=== PATIENT | male | born 1950 | race Caucasian/White ===

== ENCOUNTER 2018-07-14 11:23 | Emergency (ER) | payer OTHER, MEDICARE ==
--- OUTSIDE RECORDS SUMMARY | 2018-07-14 11:26 | XMS REPORT | Continuity of Care Document ---
:1950 Author Organization Interface Problems Problem Status Onset Classification Date Comments Source Date Reported M25.559 - PAIN Active [facility] IN UNSPECIFIED 8 [place] [facility] Medications Medication Details Route Status Patient Ordering Order Source Instructions Provider Date Allergies, Adverse Reactions, Alerts Substance Category Reaction Severity Reaction Status Date Comments Source type Reported Immunizations Immunization Date Given Site Status Last Updated Comments Source Results Order Results Value Reference Date Interpretation Comments Source Name Range Hip wo Hip wo Exam: Right Hip wo contrast MRI 01/27 - [facility] contrast contrast /2017 - [place] [facility] Clinical Indication: M25.559 Pain in unspecified hip. Right hip pain. Comparison: None Read by: Jason Espinoza MD Dictated Date/time: 01/27/18 10:28 Electronically Signed by: Jason Espinoza MD 01/27/18 10:32 FINAL REPORT TECHNIQUE: Multiplanar, multisequence MR noncontrast imaging of the right hip. FINDINGS: Labrum: While the examination is limited without intra-articular contrast, no labral abnormality is identified. Ligaments: The visualized ligamentum teres and the capsular ligaments are intact. Muscles/Tendons: There is tendinosis of the right proximal common hamstring tendon without significant tear. Visualized musculature appears within normal limits. No significant muscle atrophy or edema. Cartilage: No focal defects. Bone: No fracture is identified. Visualized bone marrow signal is within normal limits. Soft tissue: The soft tissues are unremarkable. No joint effusion or fluid collection. No abnormality of the neurovascular structures. IMPRESSION: 1. Right common hamstring tendinosis. 2. Remainder of MRI of the right hip is unremarkable. SL: BELEN Vital Signs Vital Sign Value Date Comments Source Encounters Location Location Encounter Encounter Reason Attending ADM DC Status Source Details Type Number For Provider Date Date Visit Procedures Procedure Code Date Perfomer Comments Source
[2018-07-14] MEDS ORDERED: MORPHINE 4 MG/ML SYR ONE (12:25)
[2018-07-14] MEDS ORDERED: ONDANSETRON 4 MG (ODT) TAB ONE (12:34)
--- NOTE | 2018-07-14 14:58 | RAD REPORT ---
EXAM DESCRIPTION: RAD - Lumbar Spine 3 Views - 07/14/2018 2:53 pm CLINICAL HISTORY: Back pain FINDINGS: No fracture or dislocation is seen. Moderate to marked spondylosis diffusely involves the lumbar spine consisting of osteophytes, disc sp meli narrowing and subchondral sclerosis
--- NOTE | 2018-07-14 15:24 | EDPHYS ---
Physician Documentation [facility] Name: Juan Nam Age: 68 yrs Sex: Male : 1950 Arrival Date: 07/14/2018 Time: 11:25 Bed 14 Private MD: Heidy Harmon H ED Physician Carlos Conway HPI: 07/14 11:53 This 68 yrs old Male presents to ER via Ambulatory with complaints of Back jmm Pain. 11:53 The patient presents with pain that is acute. Onset: The symptoms/episode jmm began/occurred gradually, 2 day(s) ago. The pain does not radiate. Associated signs and symptoms: Pertinent negatives: dysuria, fever, hematuria, incontinence, numbness. This is a 68 year old male with a history of htn, RA, that presents to the ED with complaints of lower back pain beginning approx 2 days ago. Patient denies injury. Denies radiation o pain, denies numbness, denies fever, denies urinary retention or fecal incontinence, denies IV drug use, denies recent surgery. . Historical: - Allergies: 11:33 No Known Allergies; aj - Home Meds: 11:33 Procardia XL 90 mg oral tr24 1 tab once daily [Active]; Cozaar 50 mg Oral tab 1 tab aj once daily [Active]; Maxzide 75-50 mg Oral tab 1 tab once daily [Active]; Nexium 40 mg Oral cpDR 1 cap once daily [Active]; Prednisone 7.5 mg Oral once daily [Active]; Actemra intravenous intravenous every 4 wks [Active]; testosterone cypionate 100 mg/mL intramuscular oil every 2 wks [Active]; oxycodone-acetaminophen 10-325 mg oral tab 2 tab [Active]; - PMHx: 11:33 Hypertension; Rheumatoid Arthritis; Chronic pain; aj - PSHx: 11:33 None; aj - Immunization history:: Adult Immunizations up to date. - Social history:: Smoking status: Patient/guardian denies using tobacco. - Ebola Screening: : Patient negative for fever greater than or equal to 101.5 degrees Fahrenheit, and additional compatible Ebola Virus Disease symptoms Patient denies exposure to infectious person Patient denies travel to an Ebola-affected area in the 21 days before illness onset No symptoms or risks identified at this time. ROS: 11:53 Constitutional: Negative for fever, chills, and weight loss, Cardiovascular: Negative [facility] for chest pain, palpitations, and edema, Respiratory: Negative for shortness of breath, cough, wheezing, and pleuritic chest pain. 11:53 Back: Positive for pain with movement. 11:53 All other systems are negative. Exam: 11:53 Constitutional: This is a well developed, well nourished patient who is awake, alert, jmm and in no acute distress. Head/Face: atraumatic. Eyes: EOMI, no conjunctival erythema appreciated ENT: Moist Mucus Membranes Neck: Trachea midline, Supple Chest/axilla: Normal chest wall appearance and motion. Cardiovascular: Regular rate and rhythm. No edema appreciated Respiratory: Normal respirations, no respiratory distress appreciated Abdomen/GI: Non distended, soft 11:53 Back: painful ROM, paraspinal lumbar muscle spasms noted, no erythema or induration is appreciated. 11:53 Neuro: Orientation: is normal, Mentation: is normal, Memory: is normal. 11:53 Psych: Behavior/mood is pleasant, cooperative. Vital Signs: 11:33 BP 141 / 79; Pulse 85; Resp 17; Temp 98.4; Pulse Ox 96% on R/A; Weight 117.93 kg; aj Height 6 ft. 1 in. (185.42 cm); 12:30 BP 140 / 80; Pulse 71; Resp 18; Pulse Ox 95% on R/A; rb1 13:30 BP 141 / 78; Pulse 79; Resp 17; Pulse Ox 95% on R/A; rb1 13:30 Pain 0/10; rb1 14:30 BP 148 / 86; Pulse 61; Resp 19; Pulse Ox 95% on R/A; rb1 15:30 BP 126 / 62; Pulse 77; Resp 20; Pulse Ox 95% on R/A; rb1 11:33 Body Mass Index 34.30 (117.93 kg, 185.42 cm) aj MDM: 11:53 Patient medically screened. [facility] 15:20 Data reviewed: vital signs, nurses notes. Counseling: I had a detailed discussion with gali the patient and/or guardian regarding: the historical points, exam findings, and any diagnostic results supporting the discharge/admit diagnosis, lab results, radiology results, the need for outpatient follow up, to return to the emergency department if symptoms worsen or persist or if there are any questions or concerns that arise at home. Response to treatment: the patient's symptoms have markedly improved after treatment, and as a result, I will discharge patient. ED course: Patient is alert and non toxic in appearance in the ED. Plain films negative. I discussed the need to follow up with pain management/PCP. I do not suspect cauda equina. Patient given return precautions. . 07/14 12:15 Order name: Lumbar Spine (3 Views) XRAY; Complete Time: 15:02 gali Administered Medications: 12:16 Drug: morphine 4 mg Route: IM; Site: right gluteus; rb1 12:45 Follow up: Response: No adverse reaction; Pain is decreased rb1 12:20 Not Given (Ordered IM): morphine 4 mg IVP once rb1 12:26 Drug: Zofran 4 mg Route: PO; rb1 13:00 Follow up: Response: No adverse reaction rb1 Disposition: 17:20 Co-signature as Attending Physician, Carlos Conway MD. rn Disposition: 07/14/18 15:22 Discharged to Home. Impression: Low back pain. - Condition is Stable. - Discharge Instructions: Back Pain, Adult. - Prescriptions for orphenadrine citrate 100 mg Oral Tablet Sustained Release - take 1 tablet by ORAL route 2 times per day As needed; 20 tablet. - Medication Reconciliation Form, Thank You Letter, Antibiotic Education, Prescription Opioid Use form. - Follow up: Heidy Harmon DO; When: 2 - 3 days; Reason: Recheck today's complaints, Continuance of care, Re-evaluation by your physician. Signatures: Dispatcher [employer] Grace Salas RN RN aj Mickail, Joel, PA PA jmm Nieto, Roman, MD MD rn Barber, Rebecca, RN RN rb1 Corrections: (The following items were deleted from the chart) 15:58 15:22 07/14/2018 15:22 Discharged to Home. Impression: Low back pain. Condition is rb1 Stable. Forms are Medication Reconciliation Form, Thank You Letter, Antibiotic Education, Prescription Opioid Use. Follow up: Heidy Harmon; When: 2 - 3 days; Reason: Recheck today's complaints, Continuance of care, Re-evaluation by your physician. gali
--- NOTE | 2018-07-14 15:24 | ER ---
Nurse's Notes [facility] Name: Juan Nam Age: 68 yrs Sex: Male : 1950 Arrival Date: 07/14/2018 Time: 11:25 Bed 14 Private MD: Heidy Harmon H Diagnosis: Low back pain Presentation: 07/14 11:29 Presenting complaint: Patient states: Low back pain that radiates to both hips since Friday. Transition of care: patient was not received from another setting of care. Onset of symptoms was July 12, 2018. Risk Assessment: Do you want to hurt yourself or someone else? Patient reports no desire to harm self or others. Initial Sepsis Screen: Does the patient meet any 2 criteria? No. Patient's initial sepsis screen is negative. Does the patient have a suspected source of infection? No. Patient's initial sepsis screen is negative. Care prior to arrival: None. 11:29 Method Of Arrival: Ambulatory 11:29 Acuity: CESAR 3 aj Triage Assessment: 11:33 General: Appears in no apparent distress. comfortable, Behavior is calm, cooperative, aj appropriate for age. Pain: Complains of pain in low back area and buttocks. Neuro: Level of Consciousness is awake, alert, obeys commands, Oriented to person, place, time, situation, Appropriate for age. Respiratory: Airway is patent Trachea midline Respiratory effort is even, unlabored, Respiratory pattern is regular, symmetrical. Derm: Skin is intact, is healthy with good turgor, Skin is pink, warm \T\ dry. normal. Musculoskeletal: Range of motion: intact in all extremities. Historical: - Allergies: 11:33 No Known Allergies; aj - Home Meds: 11:33 Procardia XL 90 mg oral tr24 1 tab once daily [Active]; Cozaar 50 mg Oral tab 1 tab aj once daily [Active]; Maxzide 75-50 mg Oral tab 1 tab once daily [Active]; Nexium 40 mg Oral cpDR 1 cap once daily [Active]; Prednisone 7.5 mg Oral once daily [Active]; Actemra intravenous intravenous every 4 wks [Active]; testosterone cypionate 100 mg/mL intramuscular oil every 2 wks [Active]; oxycodone-acetaminophen 10-325 mg oral tab 2 tab [Active]; - PMHx: 11:33 Hypertension; Rheumatoid Arthritis; Chronic pain; aj - PSHx: 11:33 None; aj - Immunization history:: Adult Immunizations up to date. - Social history:: Smoking status: Patient/guardian denies using tobacco. - Ebola Screening: : Patient negative for fever greater than or equal to 101.5 degrees Fahrenheit, and additional compatible Ebola Virus Disease symptoms Patient denies exposure to infectious person Patient denies travel to an Ebola-affected area in the 21 days before illness onset No symptoms or risks identified at this time. Screenin:36 Abuse screen: Denies threats or abuse. Nutritional screening: No deficits noted. rb1 Tuberculosis screening: No symptoms or risk factors identified. Fall Risk None identified. Assessment: 11:36 General: Appears uncomfortable, Behavior is calm, cooperative, Denies fever. Pain: rb1 Complains of pain in low back area Pain radiates to bilateral hips Pain currently is 8 out of 10 on a pain scale. Pain began Friday. Neuro: Level of Consciousness is awake, alert, obeys commands, Oriented to person, place, time, situation, Denies numbness. Cardiovascular: Capillary refill < 3 seconds is brisk in bilateral fingers. Respiratory: Airway is patent Respiratory effort is even, unlabored, Respiratory pattern is regular, symmetrical. GI: No signs and/or symptoms were reported involving the gastrointestinal system. : No signs and/or symptoms were reported regarding the genitourinary system. Derm: Skin is pink, warm \T\ dry. Musculoskeletal: Range of motion: intact in all extremities. 12:30 Reassessment: Patient appears in no apparent distress at this time. Patient and/or rb1 family updated on plan of care and expected duration. Pain level reassessed. Patient is alert, oriented x 3, equal unlabored respirations, skin warm/dry/pink. 13:30 Reassessment: Patient appears in no apparent distress at this time. Pt. is resting with rb1 eyes closed, respirations even, unlabored. Call light within reach. at bedside. 14:30 Reassessment: Patient appears in no apparent distress at this time. Patient and/or rb1 family updated on plan of care and expected duration. Pain level reassessed. Patient is alert, oriented x 3, equal unlabored respirations, skin warm/dry/pink. 15:30 Reassessment: Patient appears in no apparent distress at this time. No changes from rb1 previously documented assessment. Pain 3/10. Vital Signs: 11:33 BP 141 / 79; Pulse 85; Resp 17; Temp 98.4; Pulse Ox 96% on R/A; Weight 117.93 kg; aj Height 6 ft. 1 in. (185.42 cm); 12:30 BP 140 / 80; Pulse 71; Resp 18; Pulse Ox 95% on R/A; rb1 13:30 BP 141 / 78; Pulse 79; Resp 17; Pulse Ox 95% on R/A; rb1 13:30 Pain 0/10; rb1 14:30 BP 148 / 86; Pulse 61; Resp 19; Pulse Ox 95% on R/A; rb1 15:30 BP 126 / 62; Pulse 77; Resp 20; Pulse Ox 95% on R/A; rb1 11:33 Body Mass Index 34.30 (117.93 kg, 185.42 cm) aj ED Course: 11:25 Patient arrived in ED. sb2 11:25 Heidy Harmon DO is Private Physician. sb2 11:30 Triage completed. aj 11:33 Arm band placed on right wrist. Patient placed in an exam room. aj 11:35 Sergio Aquino PA is PHCP. jmm 11:35 Carlos Conway MD is Attending Physician. jmm 11:36 Patient has correct armband on for positive identification. Placed in gown. Bed in low rb1 position. Call light in reach. Side rails up X 1. Pulse ox on. NIBP on. Warm blanket given. 12:06 Courtney Lopez, RN is Primary Nurse. rb1 14:19 Note: PT REFUSED TO GET IN W/ C FOR X RAY AT 1400, ATTEMPTING TO GET HIM BY STRETCHER sw FOR X RAY EXAM. 14:54 Lumbar Spine (3 Views) XRAY In Process Unspecified. EDMS 15:22 Heidy Harmon DO is Referral Physician. jmm 15:57 No provider procedures requiring assistance completed. Patient did not have IV access rb1 during this emergency room visit. Administered Medications: 12:16 Drug: morphine 4 mg Route: IM; Site: right gluteus; rb1 12:45 Follow up: Response: No adverse reaction; Pain is decreased rb1 12:20 Not Given (Ordered IM): morphine 4 mg IVP once rb1 12:26 Drug: Zofran 4 mg Route: PO; rb1 13:00 Follow up: Response: No adverse reaction rb1 Outcome: 15:22 Discharge ordered by . gali 15:57 Discharged to home ambulatory, with significant other. rb1 15:57 Condition: stable 15:57 Discharge instructions given to patient, Instructed on discharge instructions, follow up and referral plans. medication usage, Demonstrated understanding of instructions, follow-up care, medications, Prescriptions given X 1. 15:58 Patient left the ED. rb1 Signatures: Dispatcher [employer] EDGrace Turner, RN RN Sergio Garcia PA PA jmm Warren, Shannon sw Barber, Rebecca, RN RN rb1 Deepthi Hale2
[2018-07-14 16:02] VITALS: TEMP 98.4
[2018-07-14 16:10] VITALS: O2SAT 95
[2018-07-14 16:12] VITALS: BP 126/62
== END 2018-07-14 15:58 | disposition home or self-care (01) ==
LOC: ER 11:23
DX: M54.5 Low back pain (principal); I10 Essential (primary) hypertension; M06.9 Rheumatoid arthritis, unspecified
CPT/HCPCS: 72100; 96372; 99284

== ENCOUNTER 2019-05-31 16:41 | Inpatient (IN) | payer OTHER, MEDICARE ==
--- OUTSIDE RECORDS SUMMARY | 2019-05-31 16:43 | XMS REPORT | Summary of Care ---
:1950 Author Name Sammie Bonner Address Unavailable Unavailable , Care Team Providers Name Role Phone ALEXIS COHWDHURY M.D. Unavailable Unavailable Sammie Bonner Unavailable Unavailable ALEXIS CHOWDHURY JR, MD Unavailable Unavailable Unavailable Unavailable Unavailable Functional Status Name Dates Details Functional status health issues are not documented Status: Name Dates Details Cognitive status health issues are not documented Status: Problems Name Dates Details Acute carpal tunnel syndrome of left wrist (354.0, G56.02) Status: Active Pain of left hand (729.5, M79.642) Status: Active History of hand surgery (V15.29, Z98.890) Status: Active Medications Name Dates Details Promethazine HCl - 25 MG Oral Tablet ONE TAB EVERY 6 HOURS PRN NAUSEA Quantity: 30 Refills: 0 ALEXIS CHOWDHURY M.D. Start : 11-Mar-2019 Active Allergies and Adverse Reactions Name Dates Details No Known Drug Allergies (Allergy) Status: Active Past Medical History Name Dates Details History of Arthritis (716.90, M19.90) Status: Resolved History of Back pain (724.5, M54.9) Status: Resolved History of Hemorrhoid (455.6, K64.9) Status: Resolved History of High blood pressure (401.9, I10) Status: Resolved History of Rheumatic fever (390, I00) Status: Resolved Procedures Procedure Dates Details Post Op Promis 29 Survey Date: 19-Mar-2019 History of Back Surgery Completed Immunization Name Dates Details Immunizations not documented Social History Name Dates Details - Status: Name Dates Details Never smoker Vital Signs Date Test Result Details No Known Vitals to report Results Date Description Value Details [id number] [U] XRAY HAND MIN 3 VWS LEFT 13865 XR HAND MIN 3 VWS LEFT Images acquired, not reported on this accession number. Plan of Care Name Dates Details Planned Observations Planned Goals not documented Planned Encounters Appointment; ALEXIS CHOWDHURY M.D. On: 05-Apr-2019 10:45 Interventions Provided Labs/Procedures/ImagingPost Op Promis 29 Survey; To Be Done: 19 Mar 2019 Instructions Name Dates Details Instructions not documented Encounters Appointment; ALEXIS CHOWDHURY M.D. On: 22-Feb-2019 10:30 Encounter Diagnosis: Problem not documented Appointment; ALEXIS CHOWDHURY M.D. On: 12-Mar-2019 13:00 Encounter Diagnosis: Problem not documented Appointment; ALEXIS CHOWDHURY M.D. On: 15-Mar-2019 9:30 Encounter Diagnosis: Problem not documented Appointment; ALEXIS CHOWDHURY M.D. On: 18-Mar-2019 9:45 Encounter Diagnosis: Problem not documented
--- OUTSIDE RECORDS SUMMARY | 2019-05-31 16:43 | XMS REPORT ---
:1950 Author Organization [facility] Address [address] [place] [address] Care Team Providers Name Role Phone Unavailable Unavailable Unavailable Problems This patient has no known problems. Allergies, Adverse Reactions, Alerts This patient has no known allergies or adverse reactions. Medications This patient has no known medications. Encounters Start End Encounter Admission Attending Care Care Encounter Date/Time Date/Time Type Type Clinicians Facility Department ID 2019-03-12 2019-03-12 Outpatient [id number] 05:38:00 05:38:00
[2019-05-31 17:55] LABS: Absolute Lymphocytes (CBC) 2.2 K/uL (0.7-4.9); Basophils % 1.1 % (0-1.3); Hematocrit 50.7 % (39.6-49.0); Lymphocytes % 19.4 % (15.3-44.8); MPV 9.2 fL (7.6-11.3); RBC Red Blood Cell Count 5.25 M/uL (4.33-5.43)
--- NOTE | 2019-05-31 18:44 | RAD REPORT ---
EXAM DESCRIPTION: US - Extremity Venous Uni Ltd - 05/31/2019 6:25 pm CLINICAL HISTORY: Right leg pain and swelling COMPARISON: None. TECHNIQUE: Real-time sonographic evaluation of the right lower extremity deep venous systems was per formed. FINDINGS: Normal compressibility, flow augmentation, phasic flow and spontaneous flow are identified in the right lower extremity common femoral vein. Thrombus is present in the femoral vein and poplit eal vein. Calf veins and posterior tibial veins the ankle or not optimally visualized. Distal leg thr ombus is not suspected. No mass or abnormal fluid collection in the soft tissues. IMPRESSION: Acute right leg deep venous thrombosis involving the superficial femoral and popliteal v eins.
[2019-05-31 18:45] LABS: Albumin 3.5 g/dL (3.4-5.0); Bilirubin Total 0.4 mg/dL (0.2-1.0); Potassium 4.1 mmol/L (3.5-5.1); Protein, Total 6.7 g/dL (6.4-8.2)
[2019-05-31] MEDS ORDERED: ENOXAPARIN 30 MG/0.3 ML SQ ONE (19:20)
[2019-05-31] MEDS ORDERED: ENOXAPARIN 100 MG/ML SYR SQ ONE (19:20)
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
[2019-05-31] MEDS ORDERED: NA CHLORIDE 0.9% 250 ML ONE (19:32)
[2019-05-31] MEDS ORDERED: VANCOMYCIN 1 GM/VIAL ONE (19:32)
[2019-05-31] MEDS ORDERED: NA CHLORIDE 0.9% 100 ML IV ONE (19:32)
[2019-05-31] MEDS ORDERED: CEFEPIME 2 GM VIAL ONE (19:32)
[2019-05-31 19:57] LABS: Protime INR 0.95
[2019-05-31] MEDS ORDERED: ACETAMINOPHEN 500 MG TAB PO PRN (20:27)
[2019-05-31] MEDS ORDERED: ONDANSETRON 4 MG/2 ML VIAL IV PRN (20:27)
[2019-05-31] MEDS ORDERED: HYDROCODONE/APAP 7.5/325 MG TAB PO PRN (20:35)
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
[2019-05-31] MEDS ORDERED: HYDROCODONE/APAP 10/325 TAB PO PRN (21:02)
[2019-05-31 21:42] VITALS: BMI 38.5
[2019-05-31 22:10] LABS: Urine Appearance CLEAR; Urine Bilirubin NEGATIVE (NEG); Urine Blood NEGATIVE (NEG); Urine Color YELLOW; Urine Glucose NEGATIVE (NEG); Urine Protein NEGATIVE (NEG); Urine Specific Gravity 1.015 (1.005-1.030); Urine Urobilinogen 0.2 mg/dL (0.2-1.0)
[2019-05-31 22:15] LABS: Urine Microscopic Reflex NO UMIC
[2019-05-31] MEDS ORDERED: HOME MED 1 EA UNK (Oxycodone Hcl/Acetaminophen [Oxycodone-Acetaminophen 10-325] 1 TAB) PO PRN (22:51)
[2019-05-31] MEDS ORDERED: TESTOSTERONE CYPIONATE IM SCH (23:00)
[2019-06-01 00:53] LABS: CKMB Creatine Kinase MB 2.6 ng/mL (0.3-3.6); Troponin I < 0.02 ng/mL (0.0-0.045)
[2019-06-01 01:00] LABS: Thyroid Stimulating Hormone 4.32 uIU/mL (0.360-3.740)
[2019-06-01] MEDS ORDERED: CEFAZOLIN/NS 1gm 1 GM/50 ML BAG IVPB SCH (01:00)
[2019-06-01] MEDS ORDERED: CEFAZOLIN SODIUM 1 GM/VIAL ONE (01:18)
[2019-06-01] MEDS ORDERED: NA CHLORIDE 0.9% 50 ML ONE (01:26)
[2019-06-01 04:58] LABS: Absolute Lymphocytes (CBC) 2.8 K/uL (0.7-4.9); Basophils % 0.8 % (0-1.3); Hematocrit 49.7 % (39.6-49.0); Lymphocytes % 30.4 % (15.3-44.8); MPV 9.1 fL (7.6-11.3); RBC Red Blood Cell Count 5.17 M/uL (4.33-5.43)
[2019-06-01 05:13] LABS: ALT/SGPT 25 U/L (12-78); AST/SGOT 20 U/L (15-37); Albumin 3.2 g/dL (3.4-5.0); Alkaline Phosphatase 63 U/L (45-117); BUN Blood Urea Nitrogen 36 mg/dL (7-18); Bicarbonate 27 mmol/L (21-32); Bilirubin Total 0.3 mg/dL (0.2-1.0); CKMB Creatine Kinase MB 2.4 ng/mL (0.3-3.6); Glucose Level 119 mg/dL (74-106); Magnesium 2.2 mg/dL (1.8-2.4); Phosphorus 3.9 mg/dL (2.5-4.9); Potassium 3.5 mmol/L (3.5-5.1); Protein, Total 6.2 g/dL (6.4-8.2); Sodium Level 141 mmol/L (136-145); Troponin I < 0.02 ng/mL (0.0-0.045)
[2019-06-01 05:37] LABS: Blood Morphology Comment NOT SEEN (NOT SEEN); Platelet Estimate ADEQ
[2019-06-01] MEDS ORDERED: POTASSIUM CL SA 10 MEQ TAB PO ONE (05:42)
[2019-06-01] MEDS: PANTOPRAZOLE 40MG TABLET PO SCH (07:03)
[2019-06-01] MEDS: predniSONE 5 MG TAB PO SCH (08:18)
[2019-06-01] MEDS: NIFEDIPINE XL 90 MG TABLET PO SCH (08:18)
--- NOTE | 2019-06-01 08:20 | RAD REPORT ---
EXAM DESCRIPTION: NM - Vent Perfusion VQ Scan - 06/01/2019 6:55 am CLINICAL HISTORY: Chest pain, shortness of breath COMPARISON: Single-view chest June 01 TECHNIQUE: The patient was administered 20.3 mCi Xenon 133 gas with posterior projection inspiration , equilibrium, and washout views obtained. The patient was then administered 7.6 mCi Tc-99m MAA label ed RBCs followed by standard 8 view protocol. FINDINGS: There is good distribution of the Xenon with no ventilation defects identified. Moderately prominent diffuse air trapping present. Perfusion imaging shows a moderately large defect in the lateral mid left lung field. No correspondin g ventilation defect and no corresponding chest film defect. No other perfusion defects identified. IMPRESSION: Intermediate probability V/Q scan for pulmonary embolism. Moderate air trapping throughout both lung dodson.
[2019-06-01] MEDS ORDERED: NIFEDIPINE XL 60 MG TABLET PO SCH (09:00)
[2019-06-01] MEDS ORDERED: ENOXAPARIN 100 MG/ML SYR SQ SCH (09:00)
[2019-06-01] MEDS: CEFAZOLIN/SWI 1gm 1 GM/10 ML SYR IVP SCH ×2 (09:00→17:19)
--- NOTE | 2019-06-01 11:54 | RAD REPORT ---
EXAM DESCRIPTION: RAD - Chest Single View - 06/01/2019 6:59 am CLINICAL HISTORY: Shortness of breath COMPARISON: January 2015 TECHNIQUE: AP portable chest image was obtained 0653 hours . FINDINGS: No focal mass or consolidation. Interstitial pattern is prominent but not clearly differen t. Central chest granulomatous type calcifications are stable. Heart and vasculature are normal. No m easurable pleural effusion and no pneumothorax. No acute bony abnormality seen. No acute aortic findi ngs suspected. IMPRESSION: No acute cardiopulmonary process. Chest findings are not significantly different from January 2015.
[2019-06-01 12:55] LABS: CKMB Creatine Kinase MB 2.6 ng/mL (0.3-3.6); Troponin I < 0.02 ng/mL (0.0-0.045)
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
[2019-06-01 20:16] VITALS: O2SAT 97
[2019-06-02] MEDS: CEFAZOLIN/SWI 1gm 1 GM/10 ML SYR IVP SCH ×2 (00:25→08:08)
[2019-06-02] MEDS: PANTOPRAZOLE 40MG TABLET PO SCH (05:37)
[2019-06-02 06:50] LABS: Potassium 3.5 mmol/L (3.5-5.1)
[2019-06-02] MEDS: NIFEDIPINE XL 90 MG TABLET PO SCH (08:07)
[2019-06-02] MEDS: predniSONE 5 MG TAB PO SCH (08:08)
[2019-06-02 08:13] VITALS: BP 155/72
[2019-06-02] MEDS ORDERED: MEDIHONEY 44 ML TOPICAL TUBE TOP SCH (09:00)
[2019-06-02 10:06] VITALS: TEMP 98.6
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
== END 2019-06-02 11:50 | disposition home or self-care (01) | DRG 300 ==
LOC: ER 16:41 → 2ND 20:48
PROVIDERS: ADMIT Family Medicine; ATTEND Family Medicine
DX: I82.431 Acute embolism and thrombosis of right popliteal vein (principal); L03.115 Cellulitis of right lower limb; N17.9 Acute kidney failure, unspecified; L97.519 Non-pressure chronic ulcer of other part of right foot with unspecified severity; I10 Essential (primary) hypertension; R00.1 Bradycardia, unspecified; N18.2 Chronic kidney disease, stage 2 (mild); M06.9 Rheumatoid arthritis, unspecified; E66.9 Obesity, unspecified; Z68.38 Body mass index [BMI] 38.0-38.9, adult
CPT/HCPCS: 36415; 71045; 78582; 80048; 80053; 81003; 82553; 83605; 83735; 84100; 84145; 84439; 84443; 84484; 85025; 85610; 87040; 93971; 94760; 96365; 96367; 96372; 99251; 99285; A9540; A9558; J0690; J0692; J1650; J7030; J7512

== ENCOUNTER 2020-01-04 09:57 | Day surgery (SDC) | payer OTHER, MEDICARE ==
[2020-01-04] MEDS ORDERED: Ringers Lactate 1,000 ML IV ONE (10:23)
[2020-01-04] MEDS ORDERED: CEFAZOLIN/SWI 1gm 1 GM/10 ML SYR ONE (10:23)
[2020-01-04] MEDS ORDERED: FENTANYL CITR 100 MCG/2 ML ONE ×2 (10:46→13:21)
[2020-01-04] MEDS ORDERED: propofoL 200 MG/20 ML VIAL IV ONE (10:46)
[2020-01-04] MEDS ORDERED: MIDAZOLAM HCL 2 MG/2 ML INJ ONE (10:46)
[2020-01-04] MEDS ORDERED: dexAMETHasone 10 MG/ML VIAL ONE (10:47)
[2020-01-04] MEDS ORDERED: LIDOCAINE 2% MPF 5 ML VIAL ONE (10:47)
[2020-01-04] MEDS ORDERED: ROCURONIUM 50 MG/5 ML VIAL IV ONE (10:51)
--- OUTSIDE RECORDS SUMMARY | 2020-01-04 11:13 | XMS REPORT | Continuity of Care Document ---
:1950 Author Organization [facility] t Address [address] [place] [address] Care Team Providers Name Role Phone LUCIANA Attending Clinician Unavailable Devendra Dean Jr Attending Clinician Giovanni Huynh Attending Clinician Delmar Torrez Attending Clinician Problems Condition Condition Condition Status Onset Resolution Last Treating Co mments Source Name Details Category Date Date Treatment Clinician Date ENDOSCOPIC Diagnosis Active 2019-03-16 Memoria CARPAL 03-05 14:16:00 l TUNNEL 00:00: [place] RELEASE, ENDOSCOPIC 00 LEFT H CARPAL TUNNEL RELEASE, LEFT H Active 03/05/2019 [facility] Waldemar UNK Diagnosis Active 2019-03-12 Mem oria 03-05 05:38:00 l UNK 00:00: [place] 00 Active 03/05/2019 [facility] Waldemar M25.559 - Diagnosis Active 2018-01-27 Memoria PAIN IN 01-14 09:41:00 l UNSPECIFIE M25.559 00:01: Her malcolm D HIP - PAIN IN 00 UNSPECIFIE D HIP Active 01/14/2018 [facility] [place] Pain of Pain of Problem Active Univers left hand left hand [facility]y of [place] [facility] Acute Acute Problem Active Univers carpal carpal ity of tunnel tunnel [place] syndrome syndrome Physic i of left of left ans wrist wrist History of History of Problem Resolve Univers Arthritis Arthritis d [facility]y [facility] [place] [facility] History of History of Problem Resolve [facility] Back pain Back pain d [facility] [place] [facility] History of History of Problem Resolve [facility] Hemorrhoid Hemorrhoid d it y of [place] [facility] History of History of Problem Resolve Univers High blood High blood d it y of pressure pressure [place] [facility] History of History of Problem Resolve Univers Rheumatic Rheumatic d ity of fever fever [place] [facility] History of History of Problem Active U nivers hand hand ity of surgery surgery [place] [facility] Pain in Problem 2017-0 2018-08-16 2018-08-16 Memoria right hip 8 12:22:45 12:22:45 l Pain in 04:17: [place] right hip 57 02/03/2018 08/16/2018 [facility] [place] Allergies, Adverse Reactions, Alerts This patient has no known allergies or adverse reactions. Social History Social Habit Start Date Stop Date Quantity Comments Source Social History 2018-01-28 2018-01-28 [facility] 04:59:00 04:59:00 Smoking Status Start Date Stop Date Source Never smoker [facility] Medications Ordered Filled Start Stop Current Ordering Indication Dosage Frequency Signature Comments Components Source Medication Medication Date Date Medication? Clinician (SIG) Name Name lidocaine 2018-06 No Route: IV, Me moria (ANES) 0-04 Drug form: l 14:11: INJ, ONCE, Stop date: 03/12/19 9:11:00 CDT propofol 2018-06 No Route: IV, Mem oria (ANES) 0-04 Drug form: l 14:11: INJ, ONCE, Stop date: 03/12/19 9:11:00 CDT ondansetron 2018-06 No Route: IV, Memoria (ANES) 0-04 Drug form: l 14:11: INJ, ONCE, Stop date: 03/12/19 9:11:00 CDT Zofran 2018-06 No Notes: Memoria 0-04 (Same as: l 14:07: Zofran) Waldemar 00 MEDICATION WASTE Product Size: 4 mg Product Wasted: ___ mg Acetaminoph 2018-06 No Notes: Do M emoria en 325 MG / 0-04 not exceed l Oxycodone 14:07: 4gm/day of He rm acetaminop de 5 MG hen. Oral Tablet (Same as: [Percocet Percocet-5 5/325] /325) ceFAZolin 2018-06 No Route: IV, Me moria (ANES) 0-04 Drug form: l 14:06: INJ, ONCE, [place] 00 Stop date: 03/12/19 9:06:00 CDT midazolam 2018-06 No Route: IV, Me moria (ANES) 0-04 Drug form: l 14:01: SOLNFcoMad[place] 00 ONCE, Stop date: 03/12/19 9:01:00 CDT acetaminoph 2018-06 No Route: IV, Memoria en (ANES) 0-04 Drug form: l 10 mg 13:51: INJ, Start Shreyas n 00 date: 03/12/19 8:51:00 CDT, Stop date: 03/12/19 9:51:00 CDT Lactated 2018-06 No Route: IV, Mem oria Ringers 0-04 Total l Injection 13:25: Volume: Smita nn IV (ANES) 00 1,000, 1000 mL Start date: 03/12/19 8:25:00 CDT, Stop date: 03/12/19 9:25:00 CDT Calcium 2018-06 No 1,000 mL, Memor ia Chloride 0-04 Rate: 75 l 0.0014 11:02: ml/hr, [place] MEQ/ML / 00 Infuse Potassium over: 13.3 Chloride hr, Route: 0.004 IV, Dosing MEQ/ML / Weight Sodium 122.007 Chloride kg, Total 0.103 Volume: MEQ/ML / 1,000, Sodium Start Lactate date: 0.028 03/12/19 MEQ/ML 6:02:00 Injectable CDT, Solution Duration: 30 day, Stop date: 04/11/19 6:01:00 CREDIT ADVISOR, 2.53, m2, 0 Promethazin Promethazin 2018-06 Yes ALEXIS ONE TAB Univers e HCl - 25 e HCl - 25 0-03 CRUMBIE EVERY 6 ity of MG Oral MG Oral 00:00: M.D. HOURS PRN [place] Tablet Tablet 00 NA[facility] Physici ans Acetaminoph 2018-06 Yes 1 tab, PO, Memoria en 325 MG / 0-01 Q6H, PRN l Hydrocodone 17:16: Pain Score [place] Bitartrate 00 1-3, 0 10 MG Oral Refill(s) Tablet [[place] 10/325] Prednisone 2018-06 Yes 20 mg, PO, M emoria 0-01 Daily, l 17:15: Quantity [place] 00 sufficient , 0 Refill(s) Actemra 20 2018-06 Yes IV, q4wk, Me moria mg/mL 0-01 0 l intravenous 17:15: Refill(s) H ermann solution 00 Losartan 2018-06 Yes 50 mg = 1 Derrick heaven Potassium 0-01 tab, PO, l 50 MG Oral 17:14: Daily, 0 Her malcolm Tablet 00 Refill(s) [Cozaar] Hydrochloro 2018-06 Yes 1 tab, PO, Memoria thiazide 50 0-01 Daily, 0 l MG / 17:14: Refill(s) [place] Triamterene 00 75 MG Oral Tablet [Maxzide] Esomeprazol 2018-06 Yes 40 mg = 1 M emoria e 40 MG 0-01 cap, PO, l Enteric 17:14: Daily, 0 Shreyas n Coated 00 Refill(s) Capsule [Nexium] 24 HR 2018-06 Yes 90 mg = 1 Memoria Nifedipine 0-01 tab, PO, l 90 MG 17:13: Daily, 0 [place] Extended 00 Refill(s) Release Tablet [Procardia] Vital Signs Vital Name Observation Time Observation Value Comments Source Respitory Rate 2019-03-12 14:45:00 Memori al [place]dem[place] Systolic (mm Hg) 2019-03-12 14:45:00 Derrick rial [place] Diastolic (mm Hg) 2019-03-12 14:45:00 Mem orial [place] Respitory Rate 2019-03-12 14:30:00 Memori al [place] Systolic (mm Hg) 2019-03-12 14:30:00 Derrick rial [place] Diastolic (mm Hg) 2019-03-12 14:30:00 Mem orial [place] Respitory Rate 2019-03-12 14:15:00 Memori al [place] Systolic (mm Hg) 2019-03-12 14:15:00 Derrick rial [place] Diastolic (mm Hg) 2019-03-12 14:15:00 Mem orial [place] Height 2019-03-12 10:52:00 185.42 cm Brigitte Medeiros Weight 2019-03-12 10:52:00 Brigitte Medeiros BMI Calculated 2019-03-12 10:52:00 Len Durhamann Procedures Procedure Date / Time Performed Performing Clinician Sourc e Post Op Promis 29 2019-03-19 00:00:[address] [facility] Survey Physicians History of Back [facility] Surgery Physicians Encounters Start End Encounter Admission Attending Care Care Encounter Source Date/Time Date/Time Type Type Clinicians Facility Department ID 2019-03-18 2019-03-18 Appointviridiana [facility] [id number] Univers 09:45:00 09:45:00 t; Mervin ESPINOZA [place], [place] Ligia ESPINOZA M.D. ans 2019-03-15 2019-03-15 [facility] Orthopedics [id number] Univers 09:30:00 09:30:00 t; Mervin ESPINOZA - [place], [place] Ligia ESPINOZA M.D. ans 2019-03-12 2019-03-12 [facility] [id number] Univers 13:00:00 13:00:00 t; Mervin EPSINOZA - [place], [place] Ligia ESPINOZA M.D. ans 2019-03-12 2019-03-12 Outpatient GENARO Dean MHPL [id number] 05:38:00 10:03:00 Alexis 00 Devendra 2019-03-12 2019-03-12 Outpatient MHBL MHBL [id number] MHBL 05:38:00 05:38:00 2019-02-25 2019-02-25 Outpatient SHAZIA HuynhMISCHER MHMISCHER [id number] 15:15:00 15:15:00 Don 00 Giovanni 2019-02-22 2019-02-22 Zoey [facility] Orth[facility] [id number] Univers 10:30:00 10:30:00 t; Mervin ESPINOZA - [place], [place] Ligia ESPINOZA M.D. ans 2018-01-27 2018-01-27 Outpatient Shan, MHOIP MHOIP [id number] 09:31:00 23:59:00 Elliott Jacobsen 00 Results Test Description Test Time Test Comments Results Result Sour e Comments [U] XRAY HAND MIN 2019-02-22 Images Univers ity of 3 VWS LEFT [id number] 11:03:00 acquired, not [place] reported on Physicians this accession number.
--- OUTSIDE RECORDS SUMMARY | 2020-01-04 11:13 | XMS REPORT | Continuity of Care Document ---
:1950 Author Organization [facility] Care Team Providers Name Role Phone StepUp Unavailable Un available Problems Problem Status Onset Classification Date Comments Sourc e Date Reported ENDOSCOPIC Active [facility] CARPAL TUNNEL 9 Shreyas n RELEASE, LEFT H UNK Active [facility] 9 Waldemar Pain in right 08/16/2018 OP ID hip 8 Somis M25.559 - PAIN Active OP ID IN UNSPECIFIED 8 Corine and HIP Medications Medication Details Route Status Patient Ordering Order Source Instructions Provider Date lidocaine (ANES) Route: IV, Inactive Drug form: 2018 Somis INJ, ONCE, Stop date: 03/12/19 9:11:00 CDT propofol (ANES) Route: IV, Inactive Drug form: 2018 Somis INJ, ONCE, Stop date: 03/12/19 9:11:00 CDT ondansetron (ANES) Route: IV, Inactive H Drug form: 2018 Somis INJ, ONCE, Stop date: 03/12/19 9:11:00 CDT Zofran Notes: (Same Inactive as: Zofran) 2019 Surya MEDICATION WASTE Product Size: 4 mg Product Wasted: ___ mg Acetaminophen 325 MG Notes: Do Inactive / Oxycodone not exceed 2019 Somis Hydrochloride 5 MG 4gm/day of Oral Tablet [Percocet acetaminophe 5/325] n. (Same as: Percocet-5/3 25) ceFAZolin (ANES) Route: IV, Inactive Drug form: 2018 Somis INJ, ONCE, Stop date: 03/12/19 9:06:00 CDT midazolam (ANES) Route: IV, Inactive Drug form: 2018 Somis SOLN, ONCE, Stop date: 03/12/19 9:01:00 CDT acetaminophen (ANES) Route: IV, Inactive 10 mg Drug form: 2019 Somis INJ, Start date: 03/12/19 8:51:00 CDT, Stop date: 03/12/19 9:51:00 CDT Lactated Ringers Route: IV, Inactive Injection IV (ANES) Total 2019 [place] 1000 mL Volume: 1,000, Start date: 03/12/19 8:25:00 CDT, Stop date: 03/12/19 9:25:00 CDT Calcium Chloride 1,000 mL, Inactive 0.0014 MEQ/ML / Rate: 75 2019 [place] d Potassium Chloride ml/hr, 0.004 MEQ/ML / Sodium Infuse over: Chloride 0.103 MEQ/ML 13.3 hr, / Sodium Lactate Route: IV, 0.028 MEQ/ML Dosing Injectable Solution Weight 122.007 kg, Total Volume: 1,000, Start date: 03/12/19 6:02:00 CDT, Duration: 30 day, Stop date: 04/11/19 6:01:00 VISE HAND, 2.53, m2, 0 Acetaminophen 325 MG 1 tab, PO, Active / Hydrocodone Q6H, PRN 2019 Somis Bitartrate 10 MG Oral Pain Score Tablet [[place] ] 1-3, 0 Refill(s) Prednisone 20 mg, PO, Active Daily, 2019 Somis Quantity sufficient, 0 Refill(s) Actemra 20 mg/mL IV, q4wk, 0 Active intravenous solution Refill(s) 2019 [place] Losartan Potassium 50 50 mg = 1 Active MG Oral Tablet tab, PO, 2019 Somis [Cozaar] Daily, 0 Refill(s) Hydrochlorothiazide 1 tab, PO, Active H 50 MG / Triamterene Daily, 0 2018 [place] 75 MG Oral Tablet Refill(s) [Maxzide] Esomeprazole 40 MG 40 mg = 1 Active Enteric Coated cap, PO, 2019 Somis Capsule [Nexium] Daily, 0 Refill(s) 24 HR Nifedipine 90 90 mg = 1 Active MG Extended Release tab, PO, 2019 [place] Tablet [Procardia] Daily, 0 Refill(s) Allergies, Adverse Reactions, Alerts No Known Medication Allergies Immunizations No Data Provided for This Section Results No Data Provided for This Section Pathology Reports No Data Provided for This Section Diagnostic Reports Report Value Date Source Hip wo contrast MRI Exam: Right Hip wo contrast MRI 01/27/2018 [facility] [place] Clinical Indication: M25.559 Pain in unspecifi ed hip. Right hip pain. Comparison: None TECHNIQUE: Multiplanar, multisequence MR noncontrast imaging of the right hip. FINDINGS: Labrum: While the examinatio n is limited without intra-articular contrast, no labral abnormality is identified. Ligaments: The visualized li gamentum teres and the capsular ligaments are intact. Muscles/Tendons: There is te ndinosis of the right proximal common hamstring tendon without significant tear. Visualized musculature appears within normal limits. No significant muscle atrophy or edema. Cartilage: No focal defects. Bone: No fracture is identif ied. Visualized bone marrow signal is within normal limits. Soft tissue: The soft tissue s are unremarkable. No joint effusion or fluid collection. No abnormality of the neurovascular structures. IMPRESSION: 1. Right common hamstring tendinosis. 2. Remainder of MRI of the right hip is unremar kable. SL: BELKIS-REJI Consultation Notes No Data Provided for This Section Discharge Summaries No Data Provided for This Section History and Physicals No Data Provided for This Section Vital Signs Vital Sign Value Date Comments Source Respitory Rate 16 03/12/2019 [facility] Systolic (mm Hg) 128 03/12/2019 [facility] Diastolic (mm Hg) 80 03/12/2019 Herminia knox Respitory Rate 17 03/12/2019 [facility] Systolic (mm Hg) 117 03/12/2019 [facility] Diastolic (mm Hg) 68 03/12/2019 Herminia d Respitory Rate 18 03/12/2019 [facility] Systolic (mm Hg) 124 03/12/2019 [facility] Diastolic (mm Hg) 72 03/12/2019 Herminia knox Height 185.42 cm 03/12/2019 [facility] Weight 122.007 03/12/2019 [facility] BMI Calculated 35.49 03/12/2019 [facility] Encounters Location Location Encounter Encounter Reason Attending ADM [place] Source Details Type Number For Provider Date Date Visit [facility] Outpt Diag [id number] Elliott 01/27 01/28 [facility] Shan /2017 [place] [facility] Somis [facility] [id number] Don 02/25 02/25 [facility] Pre[facility]Reg Krell /2018 [facility] [place] [facility] Day Surgery [id number] Rogelio 03/12 03/12 Waldemar Dean /2018 [place] [facility] Procedures No Data Provided for This Section Assessment and Plan No Data Provided for This Section Plan of Care No Data Provided for This Section Social History Social History Date Source Social History TypeResponse 03/12/2019 [facility] Alcohol Never Substance Abuse Use: None. Smoking Status Former smoker; Exposure to Tobacco Smoke None; Cigarette Smoking Last 365 Days No; Reg Smoking Cessation Counseling No; Other Tobacco Frequency quit 40 years ago; entered on: 03/12/19 No data available for this 02/25/2019 [facility] section No data available for this 01/28/2018 [facility] Pool and section Family History No Data Provided for This Section Advance Directives No Data Provided for This Section Functional Status No Data Provided for This Section
[2020-01-04] MEDS ORDERED: BUPIVACA 0.25%/EPI 0.0005%/PF 30 ML VIAL ONE (11:19)
[2020-01-04 11:35] LABS: Potassium 3.5 mmol/L (3.5-5.1)
[2020-01-04] MEDS ORDERED: CISATRACURIUM INJECTION 2 MG/ML (10 ML Vial) IV ONE (12:06)
[2020-01-04] MEDS: NA CHLORIDE 0.9% 1,000 ML ONE ×3 (12:24→13:30)
--- NOTE | 2020-01-04 13:54 | P.OP ---
Fitness And Wellness Instructor: NONE,NONE Preoperative diagnosis: LEFT inguinal Hernia Postoperative diagnosis: LEFT inguinal Hernia Primary procedure: Open LEFT inguinal Hernia repair with mesh Anesthesia: GETA + Local Estimated blood loss: <5cc Specimen: hernia sack, cord lipoma Findings: Large indirect inguinal hernia, Complications: None Implants: Bard Perfix, plug and patch - large Transferred to: Recovery Room Condition: Good
[2020-01-04] MEDS: HYDROMORPHONE HCL 1 MG/ML INJ ONE ×2 (14:40→14:47)
[2020-01-04] MEDS ORDERED: ONDANSETRON 4 MG/2 ML VIAL ONE (14:50)
[2020-01-04] MEDS: MEPERIDINE HCL 25 MG/ML SYR ONE ×2 (14:55→15:00)
[2020-01-04] MEDS ORDERED: HYDROCODONE/APAP 10/325 TAB ONE (15:45)
[2020-01-04 15:48] VITALS: TEMP 98.7; O2SAT 98
[2020-01-04 16:04] VITALS: BP 146/84
--- NOTE | 2020-01-04 22:55 | OP ---
Date of Procedure: 01/04/2020 Surgeon: Jose Raul Camilo MD, Preoperative Diagnosis: Left inguinal hernia. Postoperative Diagnosis: Left inguinal hernia. Procedure Performed: Open left inguinal hernia repair with mesh system. Anesthesia: General endotracheal plus local with 0.5% Marcaine with epinephrine. Estimated Blood Loss: Less than 5 mL. Specimens: 1.Hernia sac. 2.Cord lipoma. Findings: Large indirect inguinal hernia. Complications: None. Implants: Bard PerFix plug and patch system, large size. Disposition: Transferred to recovery room in good condition. Procedure In Detail: Informed consent was obtained. The patient was brought to the operating room, prepped and draped in the usual sterile fashion. After adequate anesthesia was achieved, an incision was made over the left inguinal area down to subcutaneous tissues using a 15 blade. Electrocautery was dissect down to through Camper's fat and Kerry's fascia to expose the external oblique aponeuros is. This was entered sharply. It was found to be quite thin and friable and easy to see through. I lioinguinal nerve was dissected out of the way after being visualized. The dissection continued down to expose the cord and large inguinal hernia. This was encircled with Shelley drain. I then graspe d, elevated the spermatic cord structures along with hernia and dissected the hernia sac free from th e spermatic cord structures. The vas deferens was visualized and found to be quite thin and diminuti ve in size, although he has some testicular hypogonadism. Dissection continued circumferentially obey und to remove the hernia sac. A small meño was made in the hernia sac and the intraabdominal compone nts were returned back to normal anatomic position to the medial aspect of the deep inguinal ring. A fter this was performed, the hernia sac was ligated and sewed closed with a 0 PDS suture and pushed b ack in the preperitoneal space. I then got the large Bard PerFix plug and patch system and deployed it in the preperitoneal space and secured this using closing the tissues over the top with the same s et 0 PDS suture with the plug in the preperitoneal space. At this point, I brought in the patch syst em, sized it appropriately, and secured it to the pubic tubercle and then on the medial and lateral e dges to the internal oblique tissue as well as the undersurface of the inguinal ligament. At this po int, the area was copiously irrigated multiple times until completely clear and I then proceeded to c lose the external oblique aponeurosis over the top and close Camper's fat and Kerry's fascia en bloc using 3-0 Vicryl suture and the skin was closed with 4-0 Monocryl in a running fashion, Dermabond pl aced over top. The patient tolerated the procedure well without evidence of complication, transferre d to PACU in good condition. All counts were correct at the end of the case. DANA/ISIAH Voice ID: [id number] Report ID: [id number]
== END 2020-01-04 16:20 | disposition home or self-care (01) ==
LOC: OR 09:57
PROVIDERS: ATTEND Surgery
PROC: 0YU60JZ Supplement Left Inguinal Region with Synthetic Substitute, Open Approach (ICD-10-PCS; principal; 2020-01-04 11:30)
DX: K40.90 Unilateral inguinal hernia, without obstruction or gangrene, not specified as recurrent (principal); E29.1 Testicular hypofunction; I10 Essential (primary) hypertension; Z11.59 Encounter for screening for other viral diseases
CPT/HCPCS: 49505; 80048; 36415; U0002; J2704; J2250; J3010 ×2; J1100; J2175; J1170; J0690; J7120; J7030; J2405; 88302

== ENCOUNTER 2022-08-09 10:13 | Emergency (ER) | payer OTHER, MEDICARE ==
--- OUTSIDE RECORDS SUMMARY | 2022-08-09 10:19 | XMS REPORT | Continuity of Care Document ---
:1950 Author Organization [facility] t Address [address] [facility] [place] [address] Care Team Providers Name Role Phone Satya Attending Clinician Unavailable Fercho Chase Attending Clinician [phone] David Sampson Attending Clinician [phone] NANCY HARTMAN Attending Clinician Unavailable ALEXIS CHOWDHURY M.D. Attending Clinician Unavailable Alexis Chowdhury Jr Attending Clinician Don Huynh Attending Clinician Elliott Torrez Attending Clinician Rena_Tiffanie Admitting Clinician Unavailable Payers Payer Name Policy Type Policy Number Effective Date Expiration Date S noemi MEDICARE B-[place]: [id number] 2017 [employer] SOL[employer]IONS 00:00:00 [facility] [id number] 2021 OPTIONS (MEDICARE 00:00:00 SUPPLEMENT) MEDICARE PART A \T\ [id number] 2017 B 00:00:00 [facility] [id number] 2020 MEDICARE SUPPLEMENT 00:00:00 Problems Condition Condition Condition Status Onset Resolution Last Treating Co mments Source Name Details Category Date Date Treatment Clinician Date Recurrent Recurrent Problem Active Jarret ston urinary Urinary 02 [facility] tract Tract 00:00: Urology infection Infection 00 UNK UNK Diagnosis Active 2019-03-12 Mem oria Active 03-05 05:38:00 l 03/05/2019 00:00: Shreyas Briggs 00 [place] ENDOSCOPIC ENDOSCOPI Diagnosis Active 2019-03-16 Memoria CARPAL C CARPAL 03-05 14:16:00 l TUNNEL TUNNEL 00:00: [place] RELEASE, RELEASE, 00 LEFT H LEFT H Active 03/05/2019 [facility] Waldemar M25.559 - M25.559 - Diagnosis Active 2018-01-27 Memoria PAIN IN PAIN IN 01-14 09:41:00 l UNSPECIFIE UNSPECIFIE 00:01: He rmann D HIP D HIP 00 Active 01/14/2018 [facility] [place] Pain of Pain of Problem Active [facility] left hand left hand Phys ici ans Acute Acute Problem Active [facility] carpal carpal Physici tunnel 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 History of History of Problem Resolve UT Arthritis Arthritis d Phys ici ans History of History of Problem Resolve UT Back pain Back pain d Phys ici ans History of History of Problem Resolve UT Hemorrhoid Hemorrhoid d Ph ysici ans History of History of Problem Resolve UT High blood High blood d Ph ysici pressure pressure ans History of History of Problem Resolve UT Rheumatic Rheumatic d Phys ici fever fever ans History of History of Problem Active U T hand hand Physici surgery surgery ans History of Past Illness Condition Condition Condition Status Onset Resolution Last Treating Co mments Source Name Details Category Date Date Treatment Clinician Date Pain in Pain in Problem 2018-08-16 2018-08-16 Memoria right hip right hip 02-03 12:22:45 12:22:45 l 02/03/2018 04:17: Shreyas vaughn 57 9 [place] [place] Allergies, Adverse Reactions, Alerts Allergy Allergy Status Severity Reaction(s) Onset Inactive Treating Comm ents Source Name Type Date Date Clinician NO KNOWN Drug Active [facility] ALLERGIE Class [facility] of [facility] Social History Social Habit Start Date Stop Date Quantity Comments Source Social History 2019-03-12 2019-03-12 [facility] Johnson lauann 11:01:02 11:01:02 Smoking Status Start Date Stop Date Source Never Smoker [facility] Medications Ordered Filled Start Stop Current Ordering Indication Dosage Frequency Signature Comments Components Source Medication Medication Date Date Medication? Clinician (SIG) Name Name lidocaine 2018-06 No Route: IV, Me moria (ANES) 0-04 Drug form: l 14:11: INJ, ONCE, [place] Stop date: 03/12/19 9:11:00 CDT propofol 2018-06 No Route: IV, Mem oria (ANES) 0-04 Drug form: l 14:11: INJ, ONCE, [place] 00 Stop date: 03/12/19 9:11:00 CDT ondansetron 2018-06 No Route: IV, Memoria (ANES) 0-04 Drug form: l 14:11: INJ, ONCE, [place] 00 Stop date: 03/12/19 9:11:00 CDT Zofran 2018-06 No Notes: Memoria 0-04 (Same as: l 14:07: Zofran) [place] 00 MEDICATION WASTE Product Size: 4 mg Product Wasted: ___ mg Acetaminoph 2018-06 No Notes: Do M emoria en 325 MG / 0-04 not exceed l Oxycodone 14:07: 4gm/day of He rmann Hydrochlori 00 acetaminop de 5 MG hen. (Same Oral Tablet as: [Percocet Percocet-5 5/325] /325) ceFAZolin 2018-06 No Route: IV, Me moria (ANES) 0-04 Drug form: l 14:06: INJ, ONCE, [place] 00 Stop date: 03/12/19 9:06:00 CDT midazolam 2018-06 No Route: IV, Me moria (ANES) 0-04 Drug form: l 14:01: SOLN, [place] 00 ONCE, Stop date: 03/12/19 9:01:00 CDT [...] 0-04 Rate: 75 l 0.0014 11:02: ml/hr, MEQ/ML / 00 Infuse Potassium over: 13.3 Chloride hr, Route: 0.004 IV, Dosing MEQ/ML / Weight Sodium 122.007 Chloride kg, Total 0.103 Volume: MEQ/ML / 1,000, Sodium Start Lactate date: 0.028 03/12/19 MEQ/ML 6:02:00 Injectable CDT, Solution Duration: 30 day, Stop date: 04/11/19 6:01:00 PRICER, 2.53, m2, 0 Promethazin Promethazin 2018-06 Yes ALEXIS ONE TAB UT e HCl - 25 e HCl - 25 0-03 [place] EVERY 6 Physici MG Oral MG Oral 00:00: M.D. HOURS PRN an s Tablet Tablet 00 NAUSEA Acetaminoph 2018-06 Yes 1 tab, PO, Memoria en 325 MG / 0-01 Q6H, PRN l Hydrocodone 17:16: Pain Score [place] Bitartrate 00 1-3, 0 10 MG Oral Refill(s) Tablet [[place] 10/325] Prednisone 2018-06 Yes 20 mg, PO, M emoria 0-01 Daily, l 17:15: Quantity [place]ar 00 sufficient , 0 Refill(s) Actemra 20 [...] PO, l 90 MG 17:13: Daily, 0 [place] Extended 00 Refill(s) Release Tablet [Procardia] chlorhexidi chlorhexidi No chlorhexid [place] ne ne ine [facility] gluconate gluconate gluconate Urology 0.12 % 0.12 % 0.12 % mouthwash mouthwash mouthwash clindamycin clindamycin No clindamyci [place] HCl 150 mg HCl 150 mg n HCl 150 [facility] capsule capsule mg capsule Uro logy esomeprazol esomeprazol No esomeprazo [place] e magnesium e magnesium le M etro 40 mg 40 mg magnesium Urology capsule,del capsule,del 40 mg ayed ayed capsule,de release release layed release losartan 50 losartan 50 No losartan [place] mg tablet mg tablet 50 mg Metr o TAKE 1 TAKE 1 tablet Urology TABLET BY TABLET BY TAKE 1 MOUTH EVERY MOUTH EVERY TABLET BY DAY DAY MOUTH EVERY DAY nifedipine nifedipine No nifedipine [place] ER 90 mg ER 90 mg ER 90 mg Met ro tablet,exte tablet,exte tablet,ext Urology nded nded ended release 24 release 24 release 24 hr TAKE 1 hr TAKE 1 hr TAKE 1 TABLET BY TABLET BY TABLET BY MOUTH EVERY MOUTH EVERY MOUTH DAY DAY EVERY DAY prednisone prednisone No prednisone [place] 10 mg 10 mg 10 mg [facility] tablet tablet tablet Urology prednisone prednisone No prednisone [place] 5 mg tablet 5 mg tablet 5 mg M etro tablet Urology sulfamethox sulfamethox No sulfametho [place] azole 800 azole 800 xazole 800 [facility] mg-trimetho mg-trimetho mg-trimeth Urology prim 160 mg prim 160 mg oprim 160 tablet Take tablet Take mg tablet 1 tablet 1 tablet Take 1 twice a day twice a day tablet by oral by oral twice a route for route for day by 21 days. 21 days. oral route for 21 days. triamterene triamterene No triamteren [place] 75 75 e 75 [facility] mg-hydrochl mg-hydrochl mg-hydroch Urology orothiazide orothiazide lorothiazi 50 mg 50 mg de 50 mg tablet TAKE tablet TAKE tablet 1 TABLET BY 1 TABLET BY TAKE 1 MOUTH EVERY MOUTH EVERY TABLET BY DAY DAY MOUTH EVERY DAY Bactrim DS Bactrim DS No 1 BID Bactrim DS [place] 800 mg-160 800 mg-160 800 mg-160 [facility] mg tablet mg tablet mg tablet Urology Take 1 Take 1 Take 1 tablet tablet tablet twice a day twice a day twice a by oral by oral day by route for route for oral route 21 days. 21 days. for 21 days. chlorhexidi chlorhexidi No chlorhexid [place] ne ne ine [facility] gluconate gluconate gluconate Urology 0.12 % 0.12 % 0.12 % mouthwash mouthwash mouthwash clindamycin clindamycin No clindamyci [place] HCl 150 mg HCl 150 mg n HCl 150 [facility] capsule capsule mg capsule Uro logy esomeprazol esomeprazol No esomeprazo [place] e magnesium e magnesium le M etro 40 mg 40 mg magnesium Urology capsule,del capsule,del 40 mg ayed ayed capsule,de release release layed release losartan 50 losartan 50 No losartan [place] mg tablet mg tablet 50 mg Metr o TAKE 1 TAKE 1 tablet Urology TABLET BY TABLET BY TAKE 1 MOUTH EVERY MOUTH EVERY TABLET BY DAY DAY MOUTH EVERY DAY nifedipine nifedipine No nifedipine [place] ER 90 mg ER 90 mg ER 90 mg Met ro tablet,exte tablet,exte tablet,ext Urology nded nded ended release 24 release 24 release 24 hr TAKE 1 hr TAKE 1 hr TAKE 1 TABLET BY TABLET BY TABLET BY MOUTH EVERY MOUTH EVERY MOUTH DAY DAY EVERY DAY prednisone prednisone No prednisone [place] 10 mg 10 mg 10 mg [facility] tablet tablet tablet Urology prednisone prednisone No prednisone [place] 5 mg tablet 5 mg tablet 5 mg M etro tablet Urology triamterene triamterene No triamteren [place] 75 75 e 75 [facility] mg-hydrochl mg-hydrochl mg-hydroch Urology orothiazide orothiazide lorothiazi 50 mg 50 mg de 50 mg tablet TAKE tablet TAKE tablet 1 TABLET BY 1 TABLET BY TAKE 1 MOUTH EVERY MOUTH EVERY TABLET BY DAY DAY MOUTH EVERY DAY chlorhexidi chlorhexidi No chlorhexid [place] ne ne ine [facility] gluconate gluconate gluconate Urology 0.12 % 0.12 % 0.12 % mouthwash mouthwash mouthwash clindamycin clindamycin No clindamyci [place] HCl 150 mg HCl 150 mg n HCl 150 [facility] capsule capsule mg capsule Uro logy esomeprazol esomeprazol No esomeprazo [place] e magnesium e magnesium le M etro 40 mg 40 mg magnesium Urology capsule,del capsule,del 40 mg ayed ayed capsule,de release release layed release losartan 50 losartan 50 No losartan [place] mg tablet mg tablet 50 mg Metr o TAKE 1 TAKE 1 tablet Urology TABLET BY TABLET BY TAKE 1 MOUTH EVERY MOUTH EVERY TABLET BY DAY DAY MOUTH EVERY DAY nifedipine nifedipine No nifedipine [place] ER 90 mg ER 90 mg ER 90 mg Met ro tablet,exte tablet,exte tablet,ext Urology nded nded ended release 24 release 24 release 24 hr TAKE 1 hr TAKE 1 hr TAKE 1 TABLET BY TABLET BY TABLET BY MOUTH EVERY MOUTH EVERY MOUTH DAY DAY EVERY DAY prednisone prednisone No prednisone [place] 10 mg 10 mg 10 mg [facility] tablet tablet tablet Urology prednisone prednisone No prednisone [place] 5 mg tablet 5 mg tablet 5 mg M etro tablet Urology sulfamethox sulfamethox No sulfametho [place] azole 800 azole 800 xazole 800 [facility] mg-trimetho mg-trimetho mg-trimeth Urology prim 160 mg prim 160 mg oprim 160 tablet Take tablet Take mg tablet 1 tablet 1 tablet Take 1 twice a day twice a day tablet by oral by oral twice a route for route for day by 21 days. 21 days. oral route for 21 days. triamterene triamterene No triamteren [place] 75 75 e 75 [facility] mg-hydrochl mg-hydrochl mg-hydroch Urology orothiazide orothiazide lorothiazi 50 mg 50 mg de 50 mg tablet TAKE tablet TAKE tablet 1 TABLET BY 1 TABLET BY TAKE 1 MOUTH EVERY MOUTH EVERY TABLET BY DAY DAY MOUTH EVERY DAY chlorhexidi chlorhexidi No chlorhexid [place] ne ne ine [facility] gluconate gluconate gluconate Urology 0.12 % 0.12 % 0.12 % mouthwash mouthwash mouthwash clindamycin clindamycin No clindamyci [place] HCl 150 mg HCl 150 mg n HCl 150 [facility] capsule capsule mg capsule Uro logy esomeprazol esomeprazol No esomeprazo [place] e magnesium e magnesium le M etro 40 mg 40 mg magnesium Urology capsule,del capsule,del 40 mg ayed ayed capsule,de release release layed release losartan 50 losartan 50 No losartan [place] mg tablet mg tablet 50 mg Metr o TAKE 1 TAKE 1 tablet Urology TABLET BY TABLET BY TAKE 1 MOUTH EVERY MOUTH EVERY TABLET BY DAY DAY MOUTH EVERY DAY nifedipine nifedipine No nifedipine [place] ER 90 mg ER 90 mg ER 90 mg Met ro tablet,exte tablet,exte tablet,ext Urology nded nded ended release 24 release 24 release 24 hr TAKE 1 hr TAKE 1 hr TAKE 1 TABLET BY TABLET BY TABLET BY MOUTH EVERY MOUTH EVERY MOUTH DAY DAY EVERY DAY prednisone prednisone No prednisone [place] 10 mg 10 mg 10 mg [facility] tablet tablet tablet Urology prednisone prednisone No prednisone [place] 5 mg tablet 5 mg tablet 5 mg M etro tablet Urology sulfamethox sulfamethox No sulfametho [place] azole 800 azole 800 xazole 800 [facility] mg-trimetho mg-trimetho mg-trimeth Urology prim 160 mg prim 160 mg oprim 160 tablet Take tablet Take mg tablet 1 tablet 1 tablet Take 1 twice a day twice a day tablet by oral by oral twice a route for route for day by 21 days. 21 days. oral route for 21 days. triamterene triamterene No triamteren [place] 75 75 e 75 [facility] mg-hydrochl mg-hydrochl mg-hydroch Urology orothiazide orothiazide lorothiazi 50 mg 50 mg de 50 mg tablet TAKE tablet TAKE tablet 1 TABLET BY 1 TABLET BY TAKE 1 MOUTH EVERY MOUTH EVERY TABLET BY DAY DAY MOUTH EVERY DAY chlorhexidi chlorhexidi No chlorhexid [place] ne ne ine [facility] gluconate gluconate gluconate Urology 0.12 % 0.12 % 0.12 % mouthwash mouthwash mouthwash clindamycin clindamycin No clindamyci [place] HCl 150 mg HCl 150 mg n HCl 150 [facility] capsule capsule mg capsule Uro logy esomeprazol esomeprazol No esomeprazo [place] e magnesium e magnesium le M etro 40 mg 40 mg magnesium Urology capsule,del capsule,del 40 mg ayed ayed capsule,de release release layed release losartan 50 losartan 50 No losartan [place] mg tablet mg tablet 50 mg Metr o TAKE 1 TAKE 1 tablet Urology TABLET BY TABLET BY TAKE 1 MOUTH EVERY MOUTH EVERY TABLET BY DAY DAY MOUTH EVERY DAY nifedipine nifedipine No nifedipine [place] ER 90 mg ER 90 mg ER 90 mg Met ro tablet,exte tablet,exte tablet,ext Urology nded nded ended release 24 release 24 release 24 hr TAKE 1 hr TAKE 1 hr TAKE 1 TABLET BY TABLET BY TABLET BY MOUTH EVERY MOUTH EVERY MOUTH DAY DAY EVERY DAY prednisone prednisone No prednisone [place] 10 mg 10 mg 10 mg [facility] tablet tablet tablet Urology prednisone prednisone No prednisone [place] 5 mg tablet 5 mg tablet 5 mg M etro tablet Urology sulfamethox sulfamethox No sulfametho [place] azole 800 azole 800 xazole 800 [facility] mg-trimetho mg-trimetho mg-trimeth Urology prim 160 mg prim 160 mg oprim 160 tablet Take tablet Take mg tablet 1 tablet 1 tablet Take 1 twice a day twice a day tablet by oral by oral twice a route for route for day by 21 days. 21 days. oral route for 21 days. triamterene triamterene No triamteren [place] 75 75 e 75 [facility] mg-hydrochl mg-hydrochl mg-hydroch Urology orothiazide orothiazide lorothiazi 50 mg 50 mg de 50 mg tablet TAKE tablet TAKE tablet 1 TABLET BY 1 TABLET BY TAKE 1 MOUTH EVERY MOUTH EVERY TABLET BY DAY DAY MOUTH EVERY DAY chlorhexidi chlorhexidi No chlorhexid [place] ne ne ine [facility] gluconate gluconate gluconate Urology 0.12 % 0.12 % 0.12 % mouthwash mouthwash mouthwash clindamycin clindamycin No clindamyci [place] HCl 150 mg HCl 150 mg n HCl 150 [facility] capsule capsule mg capsule Uro logy esomeprazol esomeprazol No esomeprazo [place] e magnesium e magnesium le M etro 40 mg 40 mg magnesium Urology capsule,del capsule,del 40 mg ayed ayed capsule,de release release layed release losartan 50 losartan 50 No losartan [place] mg tablet mg tablet 50 mg Metr o TAKE 1 TAKE 1 tablet Urology TABLET BY TABLET BY TAKE 1 MOUTH EVERY MOUTH EVERY TABLET BY DAY DAY MOUTH EVERY DAY nifedipine nifedipine No nifedipine [place] ER 90 mg ER 90 mg ER 90 mg Met ro tablet,exte tablet,exte tablet,ext Urology nded nded ended release 24 release 24 release 24 hr TAKE 1 hr TAKE 1 hr TAKE 1 TABLET BY TABLET BY TABLET BY MOUTH EVERY MOUTH EVERY MOUTH DAY DAY EVERY DAY prednisone prednisone No prednisone [place] 10 mg 10 mg 10 mg [facility] tablet tablet tablet Urology prednisone prednisone No prednisone [place] 5 mg tablet 5 mg tablet 5 mg M etro tablet Urology sulfamethox sulfamethox No sulfametho [place] azole 800 azole 800 xazole 800 [facility] mg-trimetho mg-trimetho mg-trimeth Urology prim 160 mg prim 160 mg oprim 160 tablet Take tablet Take mg tablet 1 tablet 1 tablet Take 1 twice a day twice a day tablet by oral by oral twice a route for route for day by 21 days. 21 days. oral route for 21 days. triamterene triamterene No triamteren [place] 75 75 e 75 [facility] mg-hydrochl mg-hydrochl mg-hydroch Urology orothiazide orothiazide lorothiazi 50 mg 50 mg de 50 mg tablet TAKE tablet TAKE tablet 1 TABLET BY 1 TABLET BY TAKE 1 MOUTH EVERY MOUTH EVERY TABLET BY DAY DAY MOUTH EVERY DAY chlorhexidi chlorhexidi No chlorhexid [place] ne ne ine [facility] gluconate gluconate gluconate Urology 0.12 % 0.12 % 0.12 % mouthwash mouthwash mouthwash clindamycin clindamycin No clindamyci [place] HCl 150 mg HCl 150 mg n HCl 150 [facility] capsule capsule mg capsule Uro logy esomeprazol esomeprazol No esomeprazo [place] e magnesium e magnesium le M etro 40 mg 40 mg magnesium Urology capsule,del capsule,del 40 mg ayed ayed capsule,de release release layed release losartan 50 losartan 50 No losartan [place] mg tablet mg tablet 50 mg Metr o TAKE 1 TAKE 1 tablet Urology TABLET BY TABLET BY TAKE 1 MOUTH EVERY MOUTH EVERY TABLET BY DAY DAY MOUTH EVERY DAY nifedipine nifedipine No nifedipine [place] ER 90 mg ER 90 mg ER 90 mg Met ro tablet,exte tablet,exte tablet,ext Urology nded nded ended release 24 release 24 release 24 hr TAKE 1 hr TAKE 1 hr TAKE 1 TABLET BY TABLET BY TABLET BY MOUTH EVERY MOUTH EVERY MOUTH DAY DAY EVERY DAY prednisone prednisone No prednisone [place] 10 mg 10 mg 10 mg [facility] tablet tablet tablet Urology prednisone prednisone No prednisone [place] 5 mg tablet 5 mg tablet 5 mg M etro tablet Urology sulfamethox sulfamethox No sulfametho [place] azole 800 azole 800 xazole 800 [facility] mg-trimetho mg-trimetho mg-trimeth Urology prim 160 mg prim 160 mg oprim 160 tablet Take tablet Take mg tablet 1 tablet 1 tablet Take 1 twice a day twice a day tablet by oral by oral twice a route for route for day by 21 days. 21 days. oral route for 21 days. triamterene triamterene No triamteren [place] 75 75 e 75 [facility] mg-hydrochl mg-hydrochl mg-hydroch Urology orothiazide orothiazide lorothiazi 50 mg 50 mg de 50 mg tablet TAKE tablet TAKE tablet 1 TABLET BY 1 TABLET BY TAKE 1 MOUTH EVERY MOUTH EVERY TABLET BY DAY DAY MOUTH EVERY DAY chlorhexidi chlorhexidi No chlorhexid [facility] ne ine [facility] gluconate gluconate gluconate Urology 0.12 % 0.12 % 0.12 % mouthwash mouthwash mouthwash clindamycin clindamycin No clindamyci [place] HCl 150 mg HCl 150 mg n HCl 150 [facility] capsule capsule mg capsule Uro logy esomeprazol esomeprazol No esomeprazo [place] e magnesium e magnesium le M etro 40 mg 40 mg magnesium Urology capsule,del capsule,del 40 mg ayed ayed capsule,de release release layed release losartan 50 losartan 50 No losartan [place] mg tablet mg tablet 50 mg Metr o TAKE 1 TAKE 1 tablet Urology TABLET BY TABLET BY TAKE 1 MOUTH EVERY MOUTH EVERY TABLET BY DAY DAY MOUTH EVERY DAY nifedipine nifedipine No nifedipine [place] ER 90 mg ER 90 mg ER 90 mg Met ro tablet,exte tablet,exte tablet,ext Urology nded nded ended release 24 release 24 release 24 hr TAKE 1 hr TAKE 1 hr TAKE 1 TABLET BY TABLET BY TABLET BY MOUTH EVERY MOUTH EVERY MOUTH DAY DAY EVERY DAY prednisone prednisone No prednisone [place] 10 mg 10 mg 10 mg [facility] tablet tablet tablet Urology prednisone prednisone No prednisone [place] 5 mg tablet 5 mg tablet 5 mg M etro tablet Urology sulfamethox sulfamethox No sulfametho [place] azole 800 azole 800 xazole 800 [facility] mg-trimetho mg-trimetho mg-trimeth Urology prim 160 mg prim 160 mg oprim 160 tablet Take tablet Take mg tablet 1 tablet 1 tablet Take 1 twice a day twice a day tablet by oral by oral twice a route for route for day by 21 days. 21 days. oral route for 21 days. triamterene triamterene No triamteren [place] 75 75 e 75 [facility] mg-hydrochl mg-hydrochl mg-hydroch Urology orothiazide orothiazide lorothiazi 50 mg 50 mg de 50 mg tablet TAKE tablet TAKE tablet 1 TABLET BY 1 TABLET BY TAKE 1 MOUTH EVERY MOUTH EVERY TABLET BY DAY DAY MOUTH EVERY DAY chlorhexidi chlorhexidi No chlorhexid [place] ne ne ine [facility] gluconate gluconate gluconate Urology 0.12 % 0.12 % 0.12 % mouthwash mouthwash mouthwash clindamycin clindamycin No clindamyci [place] HCl 150 mg HCl 150 mg n HCl 150 [facility] capsule capsule mg capsule Uro logy esomeprazol esomeprazol No esomeprazo [place] e magnesium e magnesium le M etro 40 mg 40 mg magnesium Urology capsule,del capsule,del 40 mg ayed ayed capsule,de release release layed release losartan 50 losartan 50 No losartan [place] mg tablet mg tablet 50 mg Metr o TAKE 1 TAKE 1 tablet Urology TABLET BY TABLET BY TAKE 1 MOUTH EVERY MOUTH EVERY TABLET BY DAY DAY MOUTH EVERY DAY nifedipine nifedipine No nifedipine [place] ER 90 mg ER 90 mg ER 90 mg Met ro tablet,exte tablet,exte tablet,ext Urology nded nded ended release 24 release 24 release 24 hr TAKE 1 hr TAKE 1 hr TAKE 1 TABLET BY TABLET BY TABLET BY MOUTH EVERY MOUTH EVERY MOUTH DAY DAY EVERY DAY prednisone prednisone No prednisone [place] 10 mg 10 mg 10 mg [facility] tablet tablet tablet Urology prednisone prednisone No prednisone [place] 5 mg tablet 5 mg tablet 5 mg M etro tablet Urology sulfamethox sulfamethox No sulfametho [place] azole 800 azole 800 xazole 800 [facility] mg-trimetho mg-trimetho mg-trimeth Urology prim 160 mg prim 160 mg oprim 160 tablet Take tablet Take mg tablet 1 tablet 1 tablet Take 1 twice a day twice a day tablet by oral by oral twice a route for route for day by 21 days. 21 days. oral route for 21 days. triamterene triamterene No triamteren [place] 75 75 e 75 [facility] mg-hydrochl mg-hydrochl mg-hydroch Urology orothiazide orothiazide lorothiazi 50 mg 50 mg de 50 mg tablet TAKE tablet TAKE tablet 1 TABLET BY 1 TABLET BY TAKE 1 MOUTH EVERY MOUTH EVERY TABLET BY DAY DAY MOUTH EVERY DAY chlorhexidi chlorhexidi No chlorhexid [place] ne ne ine [facility] gluconate gluconate gluconate Urology 0.12 % 0.12 % 0.12 % mouthwash mouthwash mouthwash clindamycin clindamycin No clindamyci [place] HCl 150 mg HCl 150 mg n HCl 150 [facility] capsule capsule mg capsule Uro logy esomeprazol esomeprazol No esomeprazo [place] e magnesium e magnesium le M etro 40 mg 40 mg magnesium Urology capsule,del capsule,del 40 mg ayed ayed capsule,de release release layed release losartan 50 losartan 50 No losartan [place] mg tablet mg tablet 50 mg Metr o TAKE 1 TAKE 1 tablet Urology TABLET BY TABLET BY TAKE 1 MOUTH EVERY MOUTH EVERY TABLET BY DAY DAY MOUTH EVERY DAY nifedipine nifedipine No nifedipine [place] ER 90 mg ER 90 mg ER 90 mg Met ro tablet,exte tablet,exte tablet,ext Urology nded nded ended release 24 release 24 release 24 hr TAKE 1 hr TAKE 1 hr TAKE 1 TABLET BY TABLET BY TABLET BY MOUTH EVERY MOUTH EVERY MOUTH DAY DAY EVERY DAY prednisone prednisone No prednisone [place] 10 mg 10 mg 10 mg [facility] tablet tablet tablet Urology prednisone prednisone No prednisone [place] 5 mg tablet 5 mg tablet 5 mg M etro tablet Urology sulfamethox sulfamethox No sulfametho [place] azole 800 azole 800 xazole 800 [facility] mg-trimetho mg-trimetho mg-trimeth Urology prim 160 mg prim 160 mg oprim 160 tablet Take tablet Take mg tablet 1 tablet 1 tablet Take 1 twice a day twice a day tablet by oral by oral twice a route for route for day by 21 days. 21 days. oral route for 21 days. triamterene triamterene No triamteren [place] 75 75 e 75 [facility] mg-hydrochl mg-hydrochl mg-hydroch Urology orothiazide orothiazide lorothiazi 50 mg 50 mg de 50 mg tablet TAKE tablet TAKE tablet 1 TABLET BY 1 TABLET BY TAKE 1 MOUTH EVERY MOUTH EVERY TABLET BY DAY DAY MOUTH EVERY DAY chlorhexidi chlorhexidi No chlorhexid [place] ne ne ine [facility] gluconate gluconate gluconate Urology 0.12 % 0.12 % 0.12 % mouthwash mouthwash mouthwash clindamycin clindamycin No clindamyci [place] HCl 150 mg HCl 150 mg n HCl 150 [facility] capsule capsule mg capsule Uro logy esomeprazol esomeprazol No esomeprazo [place] e magnesium e magnesium le M etro 40 mg 40 mg magnesium Urology capsule,del capsule,del 40 mg ayed ayed capsule,de release release layed release losartan 50 losartan 50 No losartan [place] mg tablet mg tablet 50 mg Metr o TAKE 1 TAKE 1 tablet Urology TABLET BY TABLET BY TAKE 1 MOUTH EVERY MOUTH EVERY TABLET BY DAY DAY MOUTH EVERY DAY nifedipine nifedipine No nifedipine [place] ER 90 mg ER 90 mg ER 90 mg Met ro tablet,exte tablet,exte tablet,ext Urology nded nded ended release 24 release 24 release 24 hr TAKE 1 hr TAKE 1 hr TAKE 1 TABLET BY TABLET BY TABLET BY MOUTH EVERY MOUTH EVERY MOUTH DAY DAY EVERY DAY prednisone prednisone No prednisone [place] 10 mg 10 mg 10 mg [facility] tablet tablet tablet [facility] prednisone prednisone No prednisone [place] 5 mg tablet 5 mg tablet 5 mg [facility] tablet [facility] x[facility] 800 [facility] mg-trimetho mg-trimetho mg-trimeth [facility] prim 160 mg prim 160 mg oprim 160 tablet Take tablet Take mg tablet 1 tablet 1 tablet Take 1 twice a day twice a day tablet by oral by oral twice a route for route for day by 21 days. 21 days. oral route for 21 days. triamterene triamterene No triamteren [place] 75 75 e 75 [facility] mg-hydrochl mg-hydrochl mg-hydroch [facility] orothiazide orothiazide lor[place]iazi 50 mg 50 mg de 50 mg tablet TAKE tablet TAKE tablet 1 TABLET BY 1 TABLET BY TAKE 1 MOUTH EVERY MOUTH EVERY TABLET BY DAY DAY MOUTH EVERY DAY chlorhexidi chlorhexidi No chlorhexid [place] ne ne ine [facility] gluconate gluconate gluconate Urology 0.12 % 0.12 % 0.12 % mouthwash mouthwash mouthwash clindamycin clindamycin No clindamyci [place] HCl 150 mg HCl 150 mg n HCl 150 [facility] capsule capsule mg capsule Uro logy esomeprazol esomeprazol No esomeprazo [place] e magnesium e magnesium le [facility] et[facility] 40 mg 40 mg magnesium [facility] capsule,del capsule,del 40 mg ayed ayed capsule,de release release layed release losartan 50 losartan 50 No losartan [place] mg tablet mg tablet 50 mg Metr o TAKE 1 TAKE 1 tablet [facility] TABLET BY TABLET BY TAKE 1 MOUTH EVERY MOUTH EVERY TABLET BY DAY DAY MOUTH EVERY DAY nifedipine nifedipine No nifedipine [place] ER 90 mg ER 90 mg ER 90 mg [facility] ro tablet,exte tablet,exte tablet,ext U[facility] nded nded ended release 24 release 24 release 24 hr TAKE 1 hr TAKE 1 hr TAKE 1 TABLET BY TABLET BY TABLET BY MOUTH EVERY MOUTH EVERY MOUTH DAY DAY EVERY DAY prednisone prednisone No prednisone [place] 10 mg 10 mg 10 mg [facility] tablet tablet tablet [facility] prednisone prednisone No prednisone [place] 5 mg tablet 5 mg tablet 5 mg [facility] tablet [facility] xazole 800 [facility] mg-trimetho mg-trimetho mg-trimeth [facility] prim 160 mg prim 160 mg oprim 160 tablet Take tablet Take mg tablet 1 tablet 1 tablet Take 1 twice a day twice a day tablet by oral by oral twice a route for route for day by 21 days. 21 days. oral route for 21 days. triamterene triamterene No triamteren [place] 75 75 e 75 [facility] mg-hydrochl mg-hydrochl mg-hydroch [facility] orothiazide orothiazide lor[place]iazi 50 mg 50 mg de 50 mg tablet TAKE tablet TAKE tablet 1 TABLET BY 1 TABLET BY TAKE 1 MOUTH EVERY MOUTH EVERY TABLET BY DAY DAY MOUTH EVERY DAY chlorhexidi chlorhexidi No chlorhexid [place] ne ne ine [facility] gluconate gluconate gluconate U[facility] 0.12 % 0.12 % 0.12 % mouthwash mouthwash mouthwash clindamycin clindamycin No clindamyci [place] HCl 150 mg HCl 150 mg n HCl 150 [facility] capsule capsule mg capsule Uro logy esomeprazol esomeprazol No esomeprazo [place] e magnesium e magnesium le [facility] 40 mg 40 mg magnesium [facility] capsule,del capsule,del 40 mg ayed ayed capsule,de release release layed release losartan 50 losartan 50 No losartan [place] mg tablet mg tablet 50 mg Metr o TAKE 1 TAKE 1 tablet [facility] TABLET BY TABLET BY TAKE 1 MOUTH EVERY MOUTH EVERY TABLET BY DAY DAY MOUTH EVERY DAY nifedipine nifedipine No nifedipine [place] ER 90 mg ER 90 mg ER 90 mg [facility] tablet,exte tablet,exte tablet,ext U[facility] nded nded ended release 24 release 24 release 24 hr TAKE 1 hr TAKE 1 hr TAKE 1 TABLET BY TABLET BY TABLET BY MOUTH EVERY MOUTH EVERY MOUTH DAY DAY EVERY DAY prednisone prednisone No prednisone [place] 10 mg 10 mg 10 mg [facility] tablet tablet tablet [facility] prednisone prednisone No prednisone [place] 5 mg tablet 5 mg tablet 5 mg [facility] tablet [facility] sulfamethox sulfamethox No sulfametho [place] azole 800 azole 800 xazole 800 [facility] mg-trimetho mg-trimetho mg-trimeth [facility] prim 160 mg prim 160 mg oprim 160 tablet Take tablet Take mg tablet 1 tablet 1 tablet Take 1 twice a day twice a day tablet by oral by oral twice a route for route for day by 21 days. 21 days. oral route for 21 days. triamterene triamterene No triamteren [place] 75 75 e 75 [facility] mg-hydrochl mg-hydrochl mg-hydroch [facility] orothiazide orothiazide lor[place]iazi 50 mg 50 mg de 50 mg tablet TAKE tablet TAKE tablet 1 TABLET BY 1 TABLET BY TAKE 1 MOUTH EVERY MOUTH EVERY TABLET BY DAY DAY MOUTH EVERY DAY chlorhexidi chlorhexidi No chlorhexid [place] ne ne ine [facility] gluconate gluconate gluconate [facility] 0.12 % 0.12 % 0.12 % mouthwash mouthwash mouthwash clindamycin clindamycin No clindamyci [place] HCl 150 mg HCl 150 mg n HCl 150 [facility] capsule capsule mg capsule Uro logy esomeprazol esomeprazol No esomeprazo [place] e magnesium e magnesium le [facility] 40 mg 40 mg magnesium [facility] capsule,del capsule,del 40 mg ayed ayed capsule,de release release layed release losartan 50 losartan 50 No losartan [place] mg tablet mg tablet 50 mg Metr o TAKE 1 TAKE 1 tablet Urology TABLET BY TABLET BY TAKE 1 MOUTH EVERY MOUTH EVERY TABLET BY DAY DAY MOUTH EVERY DAY nifedipine nifedipine No nifedipine [place] ER 90 mg ER 90 mg ER 90 mg [facility] ro tablet,exte tablet,exte tablet,ext Urology nded nded ended release 24 release 24 release 24 hr TAKE 1 hr TAKE 1 hr TAKE 1 TABLET BY TABLET BY TABLET BY MOUTH EVERY MOUTH EVERY MOUTH DAY DAY EVERY DAY prednisone prednisone No prednisone [place] 10 mg 10 mg 10 mg [facility] tablet tablet tablet [facility] prednisone prednisone No prednisone [place] 5 mg tablet 5 mg tablet 5 mg [facility] tablet [facility] sulfamethox sulfamethox No sulfametho [place] azole 800 azole 800 xazole 800 [facility] mg-trimetho mg-trimetho mg-trimeth U[facility] prim 160 mg prim 160 mg oprim 160 tablet Take tablet Take mg tablet 1 tablet 1 tablet Take 1 twice a day twice a day tablet by oral by oral twice a route for route for day by 21 days. 21 days. oral route for 21 days. triamterene triamterene No triamteren [place] 75 75 e 75 [facility] mg-hydrochl mg-hydrochl mg-hydroch U[facility] orothiazide orothiazide lor[place]iazi 50 mg 50 mg de 50 mg tablet TAKE tablet TAKE tablet 1 TABLET BY 1 TABLET BY TAKE 1 MOUTH EVERY MOUTH EVERY TABLET BY DAY DAY MOUTH EVERY DAY chlorhexidi chlorhexidi No chlorhexid [facility] ne ine [facility] gluconate gluconate gluconate Urology 0.12 % 0.12 % 0.12 % mouthwash mouthwash mouthwash clindamycin clindamycin No clindami [place] HCl 150 mg HCl 150 mg n HCl 150 [facility] capsule capsule mg capsule Uro logy esomeprazol esomeprazol No esomeprazo [place] e magnesium e magnesium le [facility] 40 mg 40 mg magnesium U[facility] capsule,del capsule,del 40 mg ayed ayed capsule,de release release layed release losartan 50 losartan 50 No losartan [place] mg tablet mg tablet 50 mg Metr o TAKE 1 TAKE 1 tablet Urology TABLET BY TABLET BY TAKE 1 MOUTH EVERY MOUTH EVERY TABLET BY DAY DAY MOUTH EVERY DAY nifedipine nifedipine No nifedipine [place] ER 90 mg ER 90 mg ER 90 mg [facility] ro tablet,exte tablet,exte tablet,ext Urology nded nded ended release 24 release 24 release 24 hr TAKE 1 hr TAKE 1 hr TAKE 1 TABLET BY TABLET BY TABLET BY MOUTH EVERY MOUTH EVERY MOUTH DAY DAY EVERY DAY prednisone prednisone No prednisone [place] 10 mg 10 mg 10 mg [facility] tablet tablet tablet [facility] prednisone prednisone No prednisone [place] 5 mg tablet 5 mg tablet 5 mg [facility] tablet [facility] sulfamethox sulfamethox No sulfametho [place] azole 800 azole 800 xazole 800 [facility] mg-trimetho mg-trimetho mg-trimeth U[facility] prim 160 mg prim 160 mg oprim 160 tablet Take tablet Take mg tablet 1 tablet 1 tablet Take 1 twice a day twice a day tablet by oral by oral twice a route for route for day by 21 days. 21 days. oral route for 21 days. triamterene triamterene No triamteren [place] 75 75 e 75 [facility] mg-hydrochl mg-hydrochl mg-hydroch U[facility] orothiazide orothiazide l[place]ia[place] 50 mg 50 mg de 50 mg tablet TAKE tablet TAKE tablet 1 TABLET BY 1 TABLET BY TAKE 1 MOUTH EVERY MOUTH EVERY TABLET BY DAY DAY MOUTH EVERY DAY chlorhexidi chlorhexidi No chlorhexid [place] ne ne ine [facility] gluconate gluconate gluconate U[facility] 0.12 % 0.12 % 0.12 % mouthwash mouthwash mouthwash clindamycin clindamycin No clindamyci [place] HCl 150 mg HCl 150 mg n HCl 150 [facility] capsule capsule mg capsule Uro logy esomeprazol esomeprazol No esomeprazo [place] e magnesium e magnesium le [facility] 40 mg 40 mg magnesium U[facility] capsule,del capsule,del 40 mg ayed ayed capsule,de release release layed release losartan 50 losartan 50 No losartan [place] mg tablet mg tablet 50 mg Metr o TAKE 1 TAKE 1 tablet Urology TABLET BY TABLET BY TAKE 1 MOUTH EVERY MOUTH EVERY TABLET BY DAY DAY MOUTH EVERY DAY nifedipine nifedipine No nifedipine [place] ER 90 mg ER 90 mg ER 90 mg [facility] ro tablet,exte tablet,exte tablet,ext Urology nded nded ended release 24 release 24 release 24 hr TAKE 1 hr TAKE 1 hr TAKE 1 TABLET BY TABLET BY TABLET BY MOUTH EVERY MOUTH EVERY MOUTH DAY DAY EVERY DAY prednisone prednisone No prednisone [place] 10 mg 10 mg 10 mg [facility] tablet tablet tablet [facility] prednisone prednisone No prednisone [place] 5 mg tablet 5 mg tablet 5 mg [facility] tablet [facility] sulfamethox sulfamethox No sulfametho [place] azole 800 azole 800 xazole 800 [facility] mg-trimetho mg-trimetho mg-trimeth U[facility] prim 160 mg prim 160 mg oprim 160 tablet Take tablet Take mg tablet 1 tablet 1 tablet Take 1 twice a day twice a day tablet by oral by oral twice a route for route for day by 21 days. 21 days. oral route for 21 days. triamterene triamterene No triamteren [place] 75 75 e 75 [facility] mg-hydrochl mg-hydrochl mg-hydroch U[facility] orothiazide orothiazide l[place]ia[place] 50 mg 50 mg de 50 mg tablet TAKE tablet TAKE tablet 1 TABLET BY 1 TABLET BY TAKE 1 MOUTH EVERY MOUTH EVERY TABLET BY DAY DAY MOUTH EVERY DAY chlorhexidi chlorhexidi No chlorhexid [place] ne ne ine [facility] gluconate gluconate gluconate U[facility] 0.12 % 0.12 % 0.12 % mouthwash mouthwash mouthwash clindamycin clindamycin No clindamyci [place] HCl 150 mg HCl 150 mg n HCl 150 [facility] capsule capsule mg capsule Uro logy esomeprazol esomeprazol No esomeprazo [place] e magnesium e magnesium le [facility] 40 mg 40 mg magnesium [facility] capsule,del capsule,del 40 mg ayed ayed capsule,de release release layed release losartan 50 losartan 50 No losartan [place] mg tablet mg tablet 50 mg Metr o TAKE 1 TAKE 1 tablet Urology TABLET BY TABLET BY TAKE 1 MOUTH EVERY MOUTH EVERY TABLET BY DAY DAY MOUTH EVERY DAY nifedipine nifedipine No nifedipine [place] ER 90 mg ER 90 mg ER 90 mg [facility] ro tablet,exte tablet,exte tablet,ext Urology nded nded ended release 24 release 24 release 24 hr TAKE 1 hr TAKE 1 hr TAKE 1 TABLET BY TABLET BY TABLET BY MOUTH EVERY MOUTH EVERY MOUTH DAY DAY EVERY DAY prednisone prednisone No prednisone [place] 10 mg 10 mg 10 mg [facility] tablet tablet tablet [facility] prednisone prednisone No prednisone [place] 5 mg tablet 5 mg tablet 5 mg M [facility] tablet Urology sulfamethox sulfamethox No sulfametho [place] azole 800 azole 800 xazole 800 [facility] mg-trimetho mg-trimetho mg-trimeth Urology prim 160 mg prim 160 mg oprim 160 tablet Take tablet Take mg tablet 1 tablet 1 tablet Take 1 twice a day twice a day tablet by oral by oral twice a route for route for day by 21 days. 21 days. oral route for 21 days. triamterene triamterene No triamteren [place] 75 75 e 75 [facility] mg-hydrochl mg-hydrochl mg-hydroch U[facility] orothiazide orothiazide lor[place]iazi 50 mg 50 mg de 50 mg tablet TAKE tablet TAKE tablet 1 TABLET BY 1 TABLET BY TAKE 1 MOUTH EVERY MOUTH EVERY TABLET BY DAY DAY MOUTH EVERY DAY chlorhexidi chlorhexidi No chlorhexid [place] ne ne ine [facility] gluconate gluconate gluconate U[facility] 0.12 % 0.12 % 0.12 % mouthwash mouthwash mouthwash clindamycin clindamycin No clindamyci [place] HCl 150 mg HCl 150 mg n HCl 150 [facility] capsule capsule mg capsule Uro logy esomeprazol esomeprazol No esomeprazo [place] e magnesium e magnesium le [facility] 40 mg 40 mg magnesium U[facility] capsule,del capsule,del 40 mg ayed ayed capsule,de release release layed release losartan 50 losartan 50 No losartan [place] mg tablet mg tablet 50 mg Metr o TAKE 1 TAKE 1 tablet Urology TABLET BY TABLET BY TAKE 1 MOUTH EVERY MOUTH EVERY TABLET BY DAY DAY MOUTH EVERY DAY nifedipine nifedipine No nifedipine [place] ER 90 mg ER 90 mg ER 90 mg [facility] tablet,exte tablet,exte tablet,ext Urology nded nded ended release 24 release 24 release 24 hr TAKE 1 hr TAKE 1 hr TAKE 1 TABLET BY TABLET BY TABLET BY MOUTH EVERY MOUTH EVERY MOUTH DAY DAY EVERY DAY prednisone prednisone No prednisone [place] 10 mg 10 mg 10 mg [facility] tablet tablet tablet [facility] prednisone prednisone No prednisone [place] 5 mg tablet 5 mg tablet 5 mg [facility] tablet [facility] azole 800 xazole 800 [facility] mg-trimetho mg-trimetho mg-trimeth U[facility] prim 160 mg prim 160 mg oprim 160 tablet Take tablet Take mg tablet 1 tablet 1 tablet Take 1 twice a day twice a day tablet by oral by oral twice a route for route for day by 21 days. 21 days. oral route for 21 days. triamterene triamterene No triamteren [place] 75 75 e 75 [facility] mg-hydrochl mg-hydrochl mg-hydroch U[facility] orothiazide orothiazide lor[place]iazi 50 mg 50 mg de 50 mg tablet TAKE tablet TAKE tablet 1 TABLET BY 1 TABLET BY TAKE 1 MOUTH EVERY MOUTH EVERY TABLET BY DAY DAY MOUTH EVERY DAY chlorhexidi chlorhexidi No chlorhexid [place] ne ne ine [facility] gluconate gluconate gluconate U[facility] 0.12 % 0.12 % 0.12 % mouthwash mouthwash mouthwash clindamycin clindamycin No clindamyci [place] HCl 150 mg HCl 150 mg n HCl 150 [facility] capsule capsule mg capsule Uro logy esomeprazol esomeprazol No esomeprazo [place] e magnesium e magnesium le M [facility] 40 mg 40 mg magnesium U[facility] capsule,del capsule,del 40 mg ayed ayed capsule,de release release layed release losartan 50 losartan 50 No losartan [place] mg tablet mg tablet 50 mg Met[facility] o TAKE 1 TAKE 1 tablet Urology TABLET BY TABLET BY TAKE 1 MOUTH EVERY MOUTH EVERY TABLET BY DAY DAY MOUTH EVERY DAY nifedipine nifedipine No nifedipine [place] ER 90 mg ER 90 mg ER 90 mg [facility] tablet,exte tablet,exte tablet,ext Urology nded nded ended release 24 release 24 release 24 hr TAKE 1 hr TAKE 1 hr TAKE 1 TABLET BY TABLET BY TABLET BY MOUTH EVERY MOUTH EVERY MOUTH DAY DAY EVERY DAY prednisone prednisone No prednisone [place] 10 mg 10 mg 10 mg [facility] tablet tablet tablet U[facility] prednisone prednisone No prednisone [place] 5 mg tablet 5 mg tablet 5 mg M [facility] tablet Urology sulfamethox sulfamethox No sulfametho [place] azole 800 azole 800 xazole 800 [facility] mg-trimetho mg-trimetho mg-trimeth Urology prim 160 mg prim 160 mg oprim 160 tablet Take tablet Take mg tablet 1 tablet 1 tablet Take 1 twice a day twice a day tablet by oral by oral twice a route for route for day by 21 days. 21 days. oral route for 21 days. triamterene triamterene No triamteren [place] 75 75 e 75 [facility] mg-hydrochl mg-hydrochl mg-hydroch Urology orothiazide orothiazide lor[place]iazi 50 mg 50 mg de 50 mg tablet TAKE tablet TAKE tablet 1 TABLET BY 1 TABLET BY TAKE 1 MOUTH EVERY MOUTH EVERY TABLET BY DAY DAY MOUTH EVERY DAY chlorhexidi chlorhexidi No chlorhexid [place] ne ne ine [facility] gluconate gluconate gluconate U[facility] 0.12 % 0.12 % 0.12 % mouthwash mouthwash mouthwash clindamycin clindamycin No clindamyci [place] HCl 150 mg HCl 150 mg n HCl 150 [facility] capsule capsule mg capsule Uro logy esomeprazol esomeprazol No esomeprazo [place] e magnesium e magnesium le [facility] 40 mg 40 mg magnesium [facility] capsule,del capsule,del 40 mg ayed ayed capsule,de release release layed release losartan 50 losartan 50 No losartan [place] mg tablet mg tablet 50 mg Metr o TAKE 1 TAKE 1 tablet Urology TABLET BY TABLET BY TAKE 1 MOUTH EVERY MOUTH EVERY TABLET BY DAY DAY MOUTH EVERY DAY nifedipine nifedipine No nifedipine [place] ER 90 mg ER 90 mg ER 90 mg [facility] tablet,exte tablet,exte tablet,ext Urology nded nded ended release 24 release 24 release 24 hr TAKE 1 hr TAKE 1 hr TAKE 1 TABLET BY TABLET BY TABLET BY MOUTH EVERY MOUTH EVERY MOUTH DAY DAY EVERY DAY prednisone prednisone No prednisone [place] 10 mg 10 mg 10 mg [facility] tablet tablet tablet Urology prednisone prednisone No prednisone [place] 5 mg tablet 5 mg tablet 5 mg M [facility] tablet Urology sulfamethox sulfamethox No sulfametho [place] azole 800 azole 800 xazole 800 [facility] mg-trimetho mg-trimetho mg-trimeth U[facility] prim 160 mg prim 160 mg oprim 160 tablet Take tablet Take mg tablet 1 tablet 1 tablet Take 1 twice a day twice a day tablet by oral by oral twice a route for route for day by 21 days. 21 days. oral route for 21 days. triamterene triamterene No triamteren [place] 75 75 e 75 [facility] mg-hydrochl mg-hydrochl mg-hydroch U[facility] orothiazide orothiazide lor[place]iazi 50 mg 50 mg de 50 mg tablet TAKE tablet TAKE tablet 1 TABLET BY 1 TABLET BY TAKE 1 MOUTH EVERY MOUTH EVERY TABLET BY DAY DAY MOUTH EVERY DAY chlorhexidi chlorhexidi No chlorhexid [place] ne ne ine [facility] gluconate gluconate gluconate U[facility] 0.12 % 0.12 % 0.12 % mouthwash mouthwash mouthwash clindamycin clindamycin No clindamyci [place] HCl 150 mg HCl 150 mg n HCl 150 [facility] capsule capsule mg capsule Uro logy esomeprazol esomeprazol No esomeprazo [place] e magnesium e magnesium le [facility] et[facility] 40 mg 40 mg magnesium [facility] capsule,del capsule,del 40 mg ayed ayed capsule,de release release layed release losartan 50 losartan 50 No losartan [place] mg tablet mg tablet 50 mg Metr o TAKE 1 TAKE 1 tablet Urology TABLET BY TABLET BY TAKE 1 MOUTH EVERY MOUTH EVERY TABLET BY DAY DAY MOUTH EVERY DAY nifedipine nifedipine No nifedipine [place] ER 90 mg ER 90 mg ER 90 mg [facility] tablet,exte tablet,exte tablet,ext Urology nded nded ended release 24 release 24 release 24 hr TAKE 1 hr TAKE 1 hr TAKE 1 TABLET BY TABLET BY TABLET BY MOUTH EVERY MOUTH EVERY MOUTH DAY DAY EVERY DAY prednisone prednisone No prednisone [place] 10 mg 10 mg 10 mg [facility] tablet tablet tablet U[facility] prednisone prednisone No prednisone [place] 5 mg tablet 5 mg tablet 5 mg M [facility] tablet [facility]rology sulfamethox sulfamethox No sulfametho [place] azole 800 azole 800 xazole 800 [facility] mg-trimetho mg-trimetho mg-trimeth U[facility] prim 160 mg prim 160 mg oprim 160 tablet Take tablet Take mg tablet 1 tablet 1 tablet Take 1 twice a day twice a day tablet by oral by oral twice a route for route for day by 21 days. 21 days. oral route for 21 days. triamterene triamterene No triamteren [place] 75 75 e 75 [facility] mg-hydrochl mg-hydrochl mg-hydroch Urology orothiazide orothiazide lor[place]iazi 50 mg 50 mg de 50 mg tablet TAKE tablet TAKE tablet 1 TABLET BY 1 TABLET BY TAKE 1 MOUTH EVERY MOUTH EVERY TABLET BY DAY DAY MOUTH EVERY DAY chlorhexidi chlorhexidi No chlorhexid [facility] ne ine [facility] gluconate gluconate gluconate Urology 0.12 % 0.12 % 0.12 % mouthwash mouthwash mouthwash clindamycin clindamycin No clindamyci [place] HCl 150 mg HCl 150 mg n HCl 150 [facility] capsule capsule mg capsule Uro logy esomeprazol esomeprazol No esomeprazo [place] e magnesium e magnesium le [facility] 40 mg 40 mg magnesium [facility] capsule,del capsule,del 40 mg ayed ayed capsule,de release release layed release losartan 50 losartan 50 No losartan [place] mg tablet mg tablet 50 mg Metr o TAKE 1 TAKE 1 tablet Urology TABLET BY TABLET BY TAKE 1 MOUTH EVERY MOUTH EVERY TABLET BY DAY DAY MOUTH EVERY DAY nifedipine nifedipine No nifedipine [place] ER 90 mg ER 90 mg ER 90 mg [facility] tablet,exte tablet,exte tablet,ext Urology nded nded ended release 24 release 24 release 24 hr TAKE 1 hr TAKE 1 hr TAKE 1 TABLET BY TABLET BY TABLET BY MOUTH EVERY MOUTH EVERY MOUTH DAY DAY EVERY DAY prednisone prednisone No prednisone [place] 10 mg 10 mg 10 mg [facility] tablet tablet tablet Urology prednisone prednisone No prednisone [place] 5 mg tablet 5 mg tablet 5 mg M [facility] tablet Urology sulfamethox sulfamethox No sulfametho [place] azole 800 azole 800 xazole 800 [facility] mg-trimetho mg-trimetho mg-trimeth U[facility] prim 160 mg prim 160 mg oprim 160 tablet Take tablet Take mg tablet 1 tablet 1 tablet Take 1 twice a day twice a day tablet by oral by oral twice a route for route for day by 21 days. 21 days. oral route for 21 days. triamterene triamterene No triamteren [place] 75 75 e 75 [facility] mg-hydrochl mg-hydrochl mg-hydroch U[facility] orothiazide orothiazide lor[place]iazi 50 mg 50 mg de 50 mg tablet TAKE tablet TAKE tablet 1 TABLET BY 1 TABLET BY TAKE 1 MOUTH EVERY MOUTH EVERY TABLET BY DAY DAY MOUTH EVERY DAY chlorhexidi chlorhexidi No chlorhexid [place] ne ne ine [facility] gluconate gluconate gluconate U[facility] 0.12 % 0.12 % 0.12 % mouthwash mouthwash mouthwash clindamycin clindamycin No clindamyci [place] HCl 150 mg HCl 150 mg n HCl 150 [facility] capsule capsule mg capsule Uro logy esomeprazol esomeprazol No esomeprazo [place] e magnesium e magnesium le [facility] etro 40 mg 40 mg magnesium [facility] capsule,del capsule,del 40 mg ayed ayed capsule,de release release layed release losartan 50 losartan 50 No losartan [place] mg tablet mg tablet 50 mg Metr o TAKE 1 TAKE 1 tablet Urology TABLET BY TABLET BY TAKE 1 MOUTH EVERY MOUTH EVERY TABLET BY DAY DAY MOUTH EVERY DAY nifedipine nifedipine No nifedipine [place] ER 90 mg ER 90 mg ER 90 mg [facility] tablet,exte tablet,exte tablet,ext Urology nded nded ended release 24 release 24 release 24 hr TAKE 1 hr TAKE 1 hr TAKE 1 TABLET BY TABLET BY TABLET BY MOUTH EVERY MOUTH EVERY MOUTH DAY DAY EVERY DAY prednisone prednisone No prednisone [place] 10 mg 10 mg 10 mg [facility] tablet tablet tablet U[facility] prednisone prednisone No prednisone [place] 5 mg tablet 5 mg tablet 5 mg M [facility] tablet Urology sulfamethox sulfamethox No sulfametho [place] azole 800 azole 800 xazole 800 [facility] mg-trimetho mg-trimetho mg-trimeth [facility] prim 160 mg prim 160 mg oprim 160 tablet Take tablet Take mg tablet 1 tablet 1 tablet Take 1 twice a day twice a day tablet by oral by oral twice a route for route for day by 21 days. 21 days. oral route for 21 days. triamterene triamterene No triamteren [place] 75 75 e 75 [facility] mg-hydrochl mg-hydrochl mg-hydroch U[facility] orothiazide orothiazide lor[place]iazi 50 mg 50 mg de 50 mg tablet TAKE tablet TAKE tablet 1 TABLET BY 1 TABLET BY TAKE 1 MOUTH EVERY MOUTH EVERY TABLET BY DAY DAY MOUTH EVERY DAY chlorhexidi chlorhexidi No chlorhexid [place] ne ne ine [facility] gluconate gluconate gluconate Urology 0.12 % 0.12 % 0.12 % mouthwash mouthwash mouthwash clindamycin clindamycin No clindamyci [place] HCl 150 mg HCl 150 mg n HCl 150 [facility] capsule capsule mg capsule Uro logy esomeprazol esomeprazol No esomeprazo [place] e magnesium e magnesium le M etro 40 mg 40 mg magnesium [facility] capsule,del capsule,del 40 mg ayed ayed capsule,de release release layed release losartan 50 losartan 50 No losartan [place] mg tablet mg tablet 50 mg Metr o TAKE 1 TAKE 1 tablet Urology TABLET BY TABLET BY TAKE 1 MOUTH EVERY MOUTH EVERY TABLET BY DAY DAY MOUTH EVERY DAY nifedipine nifedipine No nifedipine [place] ER 90 mg ER 90 mg ER 90 mg [facility] ro tablet,exte tablet,exte tablet,ext Urology nded nded ended release 24 release 24 release 24 hr TAKE 1 hr TAKE 1 hr TAKE 1 TABLET BY TABLET BY TABLET BY MOUTH EVERY MOUTH EVERY MOUTH DAY DAY EVERY DAY prednisone prednisone No prednisone [place] 10 mg 10 mg 10 mg [facility] tablet tablet tablet Urology prednisone prednisone No prednisone [place] 5 mg tablet 5 mg tablet 5 mg M [facility] tablet Urology sulfamethox sulfamethox No sulfametho [place] azole 800 azole 800 xazole 800 [facility] mg-trimetho mg-trimetho mg-trimeth [facility] prim 160 mg prim 160 mg oprim 160 tablet Take tablet Take mg tablet 1 tablet 1 tablet Take 1 twice a day twice a day tablet by oral by oral twice a route for route for day by 21 days. 21 days. oral route for 21 days. triamterene triamterene No triamteren [place] 75 75 e 75 [facility] mg-hydrochl mg-hydrochl mg-hydroch Urology orothiazide orothiazide lorothiazi 50 mg 50 mg de 50 mg tablet TAKE tablet TAKE tablet 1 TABLET BY 1 TABLET BY TAKE 1 MOUTH EVERY MOUTH EVERY TABLET BY DAY DAY MOUTH EVERY DAY chlorhexidi chlorhexidi No chlorhexid [place] ne ne ine [facility] gluconate gluconate gluconate Urology 0.12 % 0.12 % 0.12 % mouthwash mouthwash mouthwash clindamycin clindamycin No clindamyci [place] HCl 150 mg HCl 150 mg n HCl 150 [facility] capsule capsule mg capsule Uro logy esomeprazol esomeprazol No esomeprazo [place] e magnesium e magnesium le M etro 40 mg 40 mg magnesium Urology capsule,del capsule,del 40 mg ayed ayed capsule,de release release layed release losartan 50 losartan 50 No losartan [place] mg tablet mg tablet 50 mg Metr o TAKE 1 TAKE 1 tablet Urology TABLET BY TABLET BY TAKE 1 MOUTH EVERY MOUTH EVERY TABLET BY DAY DAY MOUTH EVERY DAY nifedipine nifedipine No nifedipine [place] ER 90 mg ER 90 mg ER 90 mg Met ro tablet,exte tablet,exte tablet,ext Urology nded nded ended release 24 release 24 release 24 hr TAKE 1 hr TAKE 1 hr TAKE 1 TABLET BY TABLET BY TABLET BY MOUTH EVERY MOUTH EVERY MOUTH DAY DAY EVERY DAY prednisone prednisone No prednisone [place] 10 mg 10 mg 10 mg [facility] tablet tablet tablet Urology prednisone prednisone No prednisone [place] 5 mg tablet 5 mg tablet 5 mg M etro tablet Urology sulfamethox sulfamethox No sulfametho [place] azole 800 azole 800 xazole 800 [facility] mg-trimetho mg-trimetho mg-trimeth Urology prim 160 mg prim 160 mg oprim 160 tablet Take tablet Take mg tablet 1 tablet 1 tablet Take 1 twice a day twice a day tablet by oral by oral twice a route for route for day by 21 days. 21 days. oral route for 21 days. triamterene triamterene No triamteren [place] 75 75 e 75 [facility] mg-hydrochl mg-hydrochl mg-hydroch Urology orothiazide orothiazide lorothiazi 50 mg 50 mg de 50 mg tablet TAKE tablet TAKE tablet 1 TABLET BY 1 TABLET BY TAKE 1 MOUTH EVERY MOUTH EVERY TABLET BY DAY DAY MOUTH EVERY DAY Vital Signs Vital Name Observation Time Observation Value Comments Source BP Diastolic 2022-02-18 00:00:00 90 mm[Hg] [facility] Urology Height 2022-02-18 00:00:00 72 [in_i] [facility] Urology BMI (Body Mass 2022-02-18 00:00:00 37.7 kg/m2 [place] Index) Urology BP Systolic 2022-02-18 00:00:00 141 mm[Hg] [facility] Body Weight 2022-02-18 00:00:00 278 [lb_av] [facility] BP Diastolic 2021-12-31 00:00:00 80 mm[Hg] [facility] Height 2021-12-31 00:00:00 72 [in_i] [facility]rolog BMI (Body Mass 2021-12-31 00:00:00 37.7 kg/m2 [place] Index) Urology BP Systolic 2021-12-31 00:00:00 131 mm[Hg] [facility] Body Weight 2021-12-31 00:00:00 278 [lb_av] [facility] Urology BP Diastolic 2021-11-12 00:00:00 81 mm[Hg] [facility]rology Height 2021-11-12 00:00:00 72 [in_i] [facility]rology BMI (Body Mass 2021-11-12 00:00:00 37.7 kg/m2 [place] Index) Urology BP Systolic 2021-11-12 00:00:00 125 mm[Hg] [facility] Body Weight 2021-11-12 00:00:00 278 [lb_av] [facility] Height 2021-10-08 00:00:00 72 [in_i] [facility] Height 2021-08-31 00:00:00 72 [in_i] [facility] BMI (Body Mass 2021-08-31 00:00:00 37.7 kg/m2 [place] Index) Urology Body Weight 2021-08-31 00:00:00 278 [lb_av] [facility] Respitory Rate 2019-03-12 14:45:00 Memori al [place] Systolic (mm Hg) 2019-03-12 14:45:00 Derrick rial [place] Diastolic (mm Hg) 2019-03-12 14:45:00 Mem orial [place] Respitory Rate 2019-03-12 14:30:00 Memori al [place] Systolic (mm Hg) 2019-03-12 14:30:00 Derrick rial [place] Diastolic (mm Hg) 2019-03-12 14:30:00 Mem orial [place] Respitory Rate 2019-03-12 14:15:00 Memori al [place] Systolic (mm Hg) 2019-03-12 14:15:00 Derrick rial [place] Diastolic (mm Hg) 2019-03-12 14:15:00 Mem orial [place] Height 2019-03-12 10:52:00 185.42 cm [facility] [place] Weight 2019-03-12 10:52:00 [facility] [place] BMI Calculated 2019-03-12 10:52:00 Memori al [place] Procedures Procedure Date / Time Performing Clinician Source Performed US, kidney 2021-08-31 00:00:00 Kemal [facility] Urology Post Op Promis 29 2019-03-19 00:00:00 [facility] Carpal Tunnel Surgery [facility] Urology Hernia Repair [facility] Ur ology Laminectomy [facility] Ur ology Plan of Care Planned Activity Planned Date Details Comments Source Diagnostic Test 2022-02-18 PSA, serum or [facility] Met ro Pending 00:00:00 plasma [code = PSA, Urology serum or plasma] Future Appointment 2022-08-27 [facility], [address] [place] 11:15:00 Norris Galdamez; , [place] [address] Future Appointment 2022-08-27 Fercho Chase, [address] [facility] 10:15:00 Norris Galdamez; , [place] [address] Encounters Start End Encounter Admission Attending Care Care Encounter Source Date/Time Date/Time Type Type Clinicians Facility Department ID 2022-07-30 2022-07-30 David [facility] [place] [facility] [id number] [facility] 00:00:00 00:00:00 Keron Sampson MD: [facility] [address] [facility] [facility], [place] [address] , Ph. 2022-07-02 2022-07-02 David [facility] [place] [facility] [id number] [facility] 00:00:00 00:00:00 Keron Sampson MD: [facility] [address] [facility], [place] [address] , Ph. 2022-06-14 2022-06-14 Outpatient Mineo_M HMU [facility] [id number] 00:00:00 00:00:00 [id number] [facility] 2022-06-14 2022-06-14 Outpatient Mineo_M [facility] [id number] 00:00:00 00:00:00 [id number] [facility] 2022-06-14 2022-06-14 Outpatient Mineo_M [facility] [id number] 00:00:00 00:00:00 [id number] [facility] 2022-06-14 2022-06-14 Outpatient Mineo_M [facility] [id number] 00:00:00 00:00:00 [id number] [facility] 2022-06-14 2022-06-14 Outpatient Mineo_M [facility]U [facility] [id number] 00:00:00 00:00:00 [id number] [facility] 2022-06-04 2022-06-04 Outpatient Mineo_M HMU HMU [id number] 202 [place] 00:00:00 00:00:00 [id number] [facility] 2022-06-04 2022-06-04 David U [place] - [id number] [facility] 00:00:00 00:00:00 Keron Sampson MD: [facility] [address] [place] [address] , Ph. 2022-05-29 2022-05-29 Outpatient Mineo_M HMU HMU [id number] 202 [place] 00:00:00 00:00:00 [id number] [facility] 2022-05-23 2022-05-23 Outpatient Mineo_M HMU HMU [id number] 202 [place] 00:00:00 00:00:00 [id number] [facility] 2022-05-06 2022-05-06 Outpatient Mineo_M HMU U [id number]- 202 [place] 00:00:00 00:00:00 [id number] [facility] 2022-05-06 2022-05-06 David U [place] - [id number] [facility] 00:00:00 00:00:00 Keron Sampson MD: [facility] [address] [place] [address] , Ph. 2022-04-11 2022-04-11 Outpatient Mineo_M HMU U [id number]- 202 [place] 00:00:00 00:00:00 [id number] [facility] 2022-04-08 2022-04-08 Outpatient Mineo_M HMU HMU [id number] 202 [place] 00:00:00 00:00:00 [id number] [facility] 2022-04-08 2022-04-08 David U [place] - [id number] [facility] 00:00:00 00:00:00 Keron Sampson MD: [facility] [address] [place] [address] , Ph. 2022-03-22 2022-03-22 Outpatient Mineo_M HMU U [id number]- 202 [place] 00:00:00 00:00:00 [id number] [facility] 2022-03-13 2022-03-13 Outpatient Mineo_M HMU HMU [id number]- 202 [place] 00:00:00 00:00:00 [id number] [facility] 2022-03-11 2022-03-11 Outpatient Mineo_M HMU U [id number]- 202 [place] 00:00:00 00:00:00 [id number] [facility] 2022-03-11 2022-03-11 David [facility] [place] - [id number] [facility] 00:00:00 00:00:00 Keron Sampson MD: ro Urolo gy [address] [place] [address] , Ph. 2022-02-18 2022-02-18 Outpatient Mineo_M [facility] [id number]- 202 [place] 00:00:00 00:00:00 [id number] [facility] 2022-02-18 2022-02-18 Outpatient Mineo, HMU U [id number] [id number] 00:00:00 00:00:00 Fercho [id number] Mathew [id number] 2022-02-18 2022-02-18 Fercho [facility] [place] - [id number] sweta 00:00:00 00:00:00 Mathew Chase MD: Nilda [facility] [facility] [address] [address] , Ph. 2022-02-14 2022-02-14 Outpatient Mineo_M HMU U [id number]- 202 [place] 00:00:00 00:00:00 [id number] [facility] 2022-02-13 2022-02-13 Outpatient Mineo_M HMU U [id number]- 202 [place] 00:00:00 00:00:00 [id number] [facility] 2022-02-13 2022-02-13 Outpatient Sampson, HMU U [id number] [id number] 00:00:00 00:00:00 David [id number] Keron [id number] 2022-02-13 2022-02-13 David [facility] [place] - [id number] [facility] 00:00:00 00:00:00 Keron Sampson MD: [facility] [address] [place] [address] , Ph. 2022-02-07 2022-02-07 Outpatient Mineo_M [facility] [id number]- 202 [place] 00:00:00 00:00:00 [id number] [facility] 2022-02-04 2022-02-04 Outpatient Mineo_M [facility] [id number]- 202 [place] 00:00:00 00:00:00 [id number] [facility] 2022-02-04 2022-02-04 Fercho [facility] [place] - [id number] [facility] 00:00:00 00:00:00 Mathew Chase MD: [facility] [address] [facility] [place] [address] , Ph. 2022-02-04 2022-02-04 Outpatient Mineo, U U [id number] [id number] 00:00:00 00:00:00 Fercho [id number] Mathew [id number] 2022-01-22 2022-01-22 Outpatient Mineo_M [facility] [id number]- 202 [place] 00:00:00 00:00:00 [id number] [facility] 2022-01-21 2022-01-21 Outpatient Mineo_M [facility] [id number]- 202 [place] 00:00:00 00:00:00 [id number] [facility] 2022-01-21 2022-01-21 Fercho [facility] [place] - [id number] [facility] 00:00:00 00:00:00 Mathew Chase MD: [facility] [address] [place] [address] , Ph. 2022-01-21 2022-01-21 Outpatient Mineo, HMU U [id number] [id number] 00:00:00 00:00:00 Fercho [id number] Mathew [id number] 2022-01-14 2022-01-14 Outpatient Mineo_M HMU HMU [id number]- 202 [place] 00:00:00 00:00:00 [id number] [facility] 2022-01-14 2022-01-14 Fercho [facility] [place] - [id number] [facility] 00:00:00 00:00:00 Mathew Chase MD: [facility] [address] [place] [address] , Ph. 2022-01-14 2022-01-14 Outpatient Mineo, HMU HMU [id number] [id number] 00:00:00 00:00:00 Fercho [id number] Mathew [id number] 2022-01-10 2022-01-10 Outpatient Mineo_M HMU U [id number]- 202 [place] 00:00:00 00:00:00 [facility] 2022-01-07 2022-01-07 Outpatient Mineo_M HMU U [id number]- 202 [place] 00:00:00 00:00:00 [facility] 2022-01-07 2022-01-07 David [facility] [place] - [id number] [facility] 00:00:00 00:00:00 Keron Sampson MD: [facility] [address] [facility], [place] [address] , Ph. 2022-01-07 2022-01-07 Outpatient Sampson, U U [id number] [id number] 00:00:00 00:00:00 David 20e-11ed-b Keron [id number] 2022-01-01 2022-01-01 Outpatient Mineo_M HMU U [id number]- 202 [place] 04:40:00 04:40:00 [facility] 2021-12-31 2021-12-31 Outpatient Mineo_M HMU HMU [id number]- [place] 02:23:00 02:23:00 [facility] 2021-12-31 2021-12-31 David [facility] [place] - [id number] [facility] 00:00:00 00:00:00 Keron Sampson MD: [facility] [address] Urology [address], [place] [address] , Ph. 2021-12-31 2021-12-31 Outpatient Mineo, HMU HMU [id number] [id number] 00:00:00 00:00:00 Fercho [id number] Mathew [id number] 2021-12-31 2021-12-31 Outpatient Sampson, HMU HMU [id number] 00:00:00 00:00:00 David [id number] Keron [id number] 2021-12-27 2021-12-27 Outpatient Mineo_M HMU HMU [id number]- [place] 04:22:00 04:22:00 [id number] [facility] 2021-12-24 2021-12-24 Outpatient Mineo_M HMU HMU [id number]- [place] 11:25:00 11:25:00 [facility] 2021-12-24 2021-12-24 David U [place] - [id number] [facility] 00:00:00 00:00:00 Keron Sampson MD: [facility] [address] Urology [address] P[facility], [place] [address] , Ph. 2021-12-24 2021-12-24 Outpatient Sampson, HMU HMU [id number] [id number] 00:00:00 00:00:00 David [id number]-11ed-8 Keron [id number] 2021-12-19 2021-12-19 Outpatient Mineo_M HMU HMU [id number]- 202 [place] 09:36:00 09:36:00 [id number] [facility] 2021-12-17 2021-12-17 Outpatient Mineo_M HMU HMU [id number]- 202 [place] 11:55:00 11:55:00 [id number] [facility] 2021-12-17 2021-12-17 [facility] [place] - [id number] [facility] 00:00:00 00:00:00 Mathew Chase MD: ro Urolo gy [address] U[address] [place] Alfredo Galdamez, [place] [address] , Ph. 2021-12-17 2021-12-17 Outpatient Mineo, HMU HMU [id number] [id number] 00:00:00 00:00:00 Fercho [id number] Mathew [id number] 2021-12-11 2021-12-11 Outpatient Mineo_M HMU U [id number]- [place] 12:19:00 12:19:00 [facility] 2021-12-11 2021-12-11 Outpatient Sampson, HMU U [id number] 00:00:00 00:00:00 David [id number] Keron [id number] 2021-12-11 2021-12-11 David [facility] [place] - [id number] [facility] 00:00:00 00:00:00 Keron Sampson MD: ro Urolo gy [address] [place] Alfredo Galdamez, [place] [address] , Ph. 2021-12-03 2021-12-03 Outpatient Mineo_M HMU U [id number]- 202 [place] 11:30:00 11:30:00 [facility] 2021-12-03 2021-12-03 David [facility] [place] - [id number] [facility] 00:00:00 00:00:00 Keron Sampson MD: ro Urolo gy [address] [place] [address] , Ph. 2021-12-03 2021-12-03 Outpatient Sampson, HMU U [id number] [id number] 00:00:00 00:00:00 David [id number] Keron [id number] 2021-11-26 2021-11-26 Outpatient Mineo_M HMU U [id number]- 202 [place] 10:25:00 10:25:00 [id number] [facility] 2021-11-20 2021-11-20 Outpatient Mineo_M HMU U [id number]- 202 [place] 11:39:00 11:39:00 [id number] [facility] 2021-11-19 2021-11-19 Outpatient Mineo_M HMU [facility] [id number]- 202 [place] 11:16:00 11:16:00 [id number] [facility] 2021-11-19 2021-11-19 David [facility] [place] - [id number] [facility] 00:00:00 00:00:00 Keron Sampson MD: [facility] [address] [facility] [place] [address] , Ph. 2021-11-19 2021-11-19 Outpatient Sampson, U U [id number] 00:00:00 00:00:00 David [id number] Keron [id number] 2021-11-16 Outpatient Mineo_M [facility]U [facility] [id number]- 202 [place] 03:43:00 03:43:00 62204 [facility] 2021-11-15 2021-11-15 Outpatient Mineo_M HMU U [id number]- 202 [place] 08:56:00 08:56:00 [id number] [facility] 2021-11-12 2021-11-12 Outpatient Mineo_M HMU [facility] [id number]- 202 [place] 03:01:00 03:01:00 57903 [facility] 2021-11-12 2021-11-12 David [facility] [place] - [id number] [facility] 00:00:00 00:00:00 Keron Sampson MD: ro Urolo gy [address] [place] [address] , Ph. 2021-11-12 2021-11-12 Outpatient Sampson, HMU HMU [id number] 00:00:00 00:00:00 David [id number] Keron [id number] 2021-11-12 2021-11-12 Outpatient Mineo, HMU HMU [id number] 00:00:00 00:00:00 Fercho [id number]-[id number]-a Mathew [id number] 2021-10-22 2021-10-22 Outpatient Mineo_M HMU HMU [id number] 202 [place] 09:40:00 09:40:00 [id number] [facility] 2021-10-10 2021-10-10 Outpatient Mineo_M HMU HMU [id number] 202 [place] 09:53:00 09:53:00 [id number] [facility] 2021-10-08 2021-10-08 Outpatient Mineo_M HMU HMU [id number] 202 [place] 04:27:00 04:27:00 [id number] [facility] 2021-10-08 2021-10-08 Fercho [facility] [place] - [id number] [facility] 00:00:00 00:00:00 Mathew Chase MD: ro Urolo gy [address] Urology [place] [address] [address] [address] , Ph. 2021-10-08 2021-10-08 Outpatient Mineo, HMU HMU [id number] 00:00:00 00:00:00 Fercho [id number] Mathew [id number] 2021-10-04 2021-10-04 Outpatient Mineo_M HMU HMU [id number]- 202 [place] 09:04:00 09:04:00 [id number] [facility] 2021-09-20 2021-09-20 Outpatient Mineo_M HMU HMU [id number] 202 [place] 02:30:00 02:30:00 [id number] [facility] 2021-09-20 2021-09-20 Outpatient Mineo_M HMU HMU [id number] 202 [place] 02:30:00 02:30:00 [id number] [facility] 2021-09-20 2021-09-20 Outpatient Mineo, HMU HMU [id number] 00:00:00 00:00:00 Fercho [id number] Mathew [id number] 2021-09-20 2021-09-20 Fercho [facility] [place] - [id number] [facility] 00:00:00 00:00:00 Mathew Chase MD: [facility] [address] U[address] [place] [address], Surgical [facility] [address] , Ph. 2021-09-03 2021-09-03 Outpatient Mineo_M HMU HMU [id number]- 202 [place] 02:41:00 02:41:00 [facility] 2021-08-31 2021-08-31 Outpatient Mineo_M HMU HMU [id number]- 202 [place] 03:24:00 03:24:00 [facility] 2021-08-31 2021-08-31 Fercho [facility] [place] - [id number] [facility] 00:00:00 00:00:00 Mathew Chase MD: [facility] [address] U[address] [place] [address] [address] [address] , Ph. 2021-08-31 2021-08-31 Outpatient Mineo, HMU HMU [id number] 00:00:00 00:00:00 Fercho [id number] Mathew [id number] 2021-08-31 2021-08-31 Outpatient Mineo, HMU HMU [id number] c-[id number] 00:00:00 00:00:00 Fercho [id number] Mathew [id number] 2021-08-08 2021-08-08 Outpatient Mineo_M HMU HMU [id number]- 202 [place] 02:27:00 02:27:00 [facility] 2020-07-13 2020-07-13 Outpatient Edwina HARTMAN [facility] [id number] Univers 15:10:00 15:10:00 NANCY [id number] [facility] 2020-07-13 2020-07-13 Outpatient Edwina HARTMAN [facility] [id number] Univers 15:10:00 15:10:00 NANCY [facility] 2020-06-15 2020-06-15 Outpatient Edwina HARTMAN [facility] [id number] Univers 16:30:00 16:30:00 NANCY [facility] 2019-03-18 2019-03-18 Zoey CHOWDHURY [facility] [id number] 76 [place] 09:45:00 09:45:00 t; Mervin ESPINOZA nan Stern M.D. 2019-03-15 2019-03-15 Zoey CHOWDHURY [facility] Orthopedics 57 [id number] [place] 09:30:00 09:30:00 t; Mervin ESPINOZA - Garvin nan Cook M.D. 2019-03-12 2019-03-12 Day [facility] [id number] Memoria 10:38:00 15:03:00 Surgery r Waldemar 00 l [facility] 2019-03-12 2019-03-12 Zoey CHOWDHURY [facility] Orthopedics 57 [id number] [place] 13:00:00 13:00:00 t; Mervin ESPINOZA - Garvin nan Cook M.D. 2019-03-12 2019-03-12 Outpatient SHAZIA ChowdhuryPL [facility] [id number] 0002 05:38:00 10:03:00 Alexis Ramsay 2019-03-12 2019-03-12 Outpatient MHBL MHBL [id number] MHBL 05:38:00 05:38:00 2019-02-25 2019-02-25 Ambulatory nullFlavo MNA [id number] Memoria 20:15:00 20:15:00 Pre-Reg r Neurology 00 l [facility] 2019-02-25 2019-02-25 Outpatient NICOLÁS HuynhMISCH 203 [id number] 15:15:00 15:15:00 Don 00 Giovanni 2019-02-22 2019-02-22 VALERIA Casillas [facility] 56 [id number] [place] 10:30:00 10:30:00 mohan ESPINOZA M.D. [facility] Physic nan CHOWDHURY M.D. 2018-01-27 2018-01-28 Outpt Diag nullFlavo [facility] [id number] Memoria 14:31:00 04:59:00 Services r Outpatient 00 l Imaging Waldemar Reddyland 2018-01-27 2018-01-27 Outpatient Shan, [facility] [id number] 09:31:00 23:59:00 Elliott Jacobsen 00 Results Test Description Test Time Test Comments Results Result Comments Source PSA, serum or plasma 2022-02-18 00:00:00 Test Item Value Reference Range Interpretation Comme nts PSA testosterone (test code = PSA testosterone) PSA_1 (test code = PSA_1) 0.22 [place] [facility] of post-voiding residual urine and/or bladder capacity (PROC)2021-12-31 12:01:00 Test Item Value Reference Range Interpretation Comments CC (test code = CC) 116.5 [place] [facility] of post-voiding residual urine and/or bladder capacity (PROC)2021-12-31 12:01:00 Test Item Value Reference Range Interpretation Comments CC (test code = CC) 116.5 [place] [facility] of post-voiding residual urine and/or bladder capacity (PROC)2021-12-31 12:01:00 Test Item Value Reference Range Interpretation Comments CC (test code = CC) 116.5 [place] [facility] of post-voiding residual urine and/or bladder capacity (PROC)2021-12-31 12:01:00 Test Item Value Reference Range Interpretation Comments CC (test code = CC) 116.5 [place] [facility] post-voiding residual urine and/or bladder capacity (PROC)2021-12-31 12:01:00 Test Item Value Reference Range Interpretation Comments CC (test code = CC) [address] [facility] - [id number] 11:15:00 Test Item Value Reference Range Interpretation Comments leukocytes (test code negative neg = leukocytes) urobilinogen (test 0.2 E.U./dL sm amt (.5-1mg/dL) code = urobilinogen) protein (test code = negative See_Comment [Autom ated protein) message] The sy stem which generated this result transmitted reference range : <=150 mg/d. The reference range was not used to interpret this result as normal/abnormal . pH (test code = pH) 6.0 4.5-8 blood (test code = negative See_Comment [Automat ed blood) message] The sy stem which generated this result transmitted reference range : <=3 RBC. The reference range was not used to interpret this result as normal/abnormal . specific gravity 1.020 1.005-1.025 (test code = specific gravity) ketone (test code = negative none ketone) bilirubin (test code negative neg = bilirubin) glucose (test code = negative See_Comment [Autom ated glucose) message] The sy stem which generated this result transmitted reference range : <=130 mg/d. The reference range was not used to interpret this result as normal/abnormal . color (test code = yellow yellow color) clarity (test code = clear clear or cloudy clarity) nitrite (test code = negative neg nitrite) [facility] UrologyUrinalysis macro (dipstick) panel - [id number] 11:15:00 Test Item Value Reference Range Interpretation Comments leukocytes (test code negative neg = leukocytes) urobilinogen (test 0.2 E.U./dL sm amt (.5-1mg/dL) code = urobilinogen) protein (test code = negative See_Comment [Autom ated protein) message] The sy stem which generated this result transmitted reference range : <=150 mg/d. The reference range was not used to interpret this result as normal/abnormal . pH (test code = pH) 6.0 4.5-8 blood (test code = negative See_Comment [Automat ed blood) message] The sy stem which generated this result transmitted reference range : <=3 RBC. The reference range was not used to interpret this result as normal/abnormal . specific gravity 1.020 1.005-1.025 (test code = specific gravity) ketone (test code = negative none ketone) bilirubin (test code negative neg = bilirubin) glucose (test code = negative See_Comment [Autom ated glucose) message] The sy stem which generated this result transmitted reference range : <=130 mg/d. The reference range was not used to interpret this result as normal/abnormal . color (test code = yellow yellow color) clarity (test code = clear clear or cloudy clarity) nitrite (test code = negative neg nitrite) [facility] UrologyUrinalysis [facility] (dipstick) panel - [id number] 11:15:00 Test Item Value Reference Range Interpretation Comments leukocytes (test code negative neg = leukocytes) urobilinogen (test 0.2 E.U./dL sm amt (.5-1mg/dL) code = urobilinogen) protein (test code = negative See_Comment [Autom ated protein) message] The sy stem which generated this result transmitted reference range : <=150 mg/d. The reference range was not used to interpret this result as normal/abnormal . pH (test code = pH) 6.0 4.5-8 blood (test code = negative See_Comment [Automat ed blood) message] The sy stem which generated this result transmitted reference range : <=3 RBC. The reference range was not used to interpret this result as normal/abnormal . specific gravity 1.020 1.005-1.025 (test code = specific gravity) ketone (test code = negative none ketone) bilirubin (test code negative neg = bilirubin) glucose (test code = negative See_Comment [Autom ated glucose) message] The sy stem which generated this result transmitted reference range : <=130 mg/d. The reference range was not used to interpret this result as normal/abnormal . color (test code = yellow yellow color) clarity (test code = clear clear or cloudy clarity) nitrite (test code = negative neg nitrite) [facility] UrologyUrinalysis macro (dipstick) panel - [id number] 11:15:00 Test Item Value Reference Range Interpretation Comments leukocytes (test code negative neg = leukocytes) urobilinogen (test 0.2 E.U./dL sm amt (.5-1mg/dL) code = urobilinogen) protein (test code = negative See_Comment [Autom ated protein) message] The sy stem which generated this result transmitted reference range : <=150 mg/d. The reference range was not used to interpret this result as normal/abnormal . pH (test code = pH) 6.0 4.5-8 blood (test code = negative See_Comment [Automat ed blood) message] The sy stem which generated this result transmitted reference range : <=3 RBC. The reference range was not used to interpret this result as normal/abnormal . specific gravity 1.020 1.005-1.025 (test code = specific gravity) ketone (test code = negative none ketone) bilirubin (test code negative neg = bilirubin) glucose (test code = negative See_Comment [Autom ated glucose) message] The sy stem which generated this result transmitted reference range : <=130 mg/d. The reference range was not used to interpret this result as normal/abnormal . color (test code = yellow yellow color) clarity (test code = clear clear or cloudy clarity) nitrite (test code = negative neg nitrite) [facility] UrologyUrinalysis macro (dipstick) panel - [id number] 11:15:00 Test Item Value Reference Range Interpretation Comments leukocytes (test code negative neg = leukocytes) urobilinogen (test 0.2 E.U./dL sm amt (.5-1mg/dL) code = urobilinogen) protein (test code = negative See_Comment [Autom ated protein) message] The sy stem which generated this result transmitted reference range : <=150 mg/d. The reference range was not used to interpret this result as normal/abnormal . pH (test code = pH) 6.0 4.5-8 blood (test code = negative See_Comment [Automat ed blood) message] The sy stem which generated this result transmitted reference range : <=3 RBC. The reference range was not used to interpret this result as normal/abnormal . specific gravity 1.020 1.005-1.025 (test code = specific gravity) ketone (test code = negative none ketone) bilirubin (test code negative neg = bilirubin) glucose (test code = negative See_Comment [Autom ated glucose) message] The sy stem which generated this result transmitted reference range : <=130 mg/d. The reference range was not used to interpret this result as normal/abnormal . color (test code = yellow yellow color) clarity (test code = clear clear or cloudy clarity) nitrite (test code = negative neg nitrite) [facility] UrologyCytology report of Specimen Cyto [id number] 00:00:00 [facility]-box lidder [facility]rology[facility] of Specimen Cyto stain 2021-09-20 00:00:00Non-box lidder [facility]ology[facility] Urologymeasurement of post- voiding residual urine and/or bladder capacity (PROC)2021-08-31 11:21:00 Test Item Value Reference Range Interpretation Comments CC (test code = CC) 97 [facility] Urologymeasurement of post-voiding residual urine and/or bladder capacity (PROC)2021-08-31 11:21:00 Test Item Value Reference Range Interpretation Comments CC (test code = CC) 97 [facility] Urology[U] XRAY HAND MIN 3 VWS LEFT [id number] 11:03:00Images acquired, not reported on this accession number.[facility]
[2022-08-09] MEDS ORDERED: DIAZEPAM 10 MG/2 ML INJ SYRINGE ONE (10:53)
--- NOTE | 2022-08-09 11:07 | RAD REPORT ---
EXAM DESCRIPTION: RAD - Shoulder Right 2 View - 08/09/2022 10:57 am CLINICAL HISTORY: Pain COMPARISON: No comparisons FINDINGS/IMPRESSION: Anterior inferior right shoulder dislocation. Small carlos alberto of calcium overlying the right glenohumeral joint could be from a fracture. Impaction at the humeral head also concerning for fracture. CT could confirm.
--- NOTE | 2022-08-09 11:18 | ER ---
Nurse's Notes [facility] Name: Juan Nam Age: 72 yrs Sex: Male : 1950 Arrival Date: 08/09/2022 Time: 10:14 Bed 4 Private MD: Heidy Harmon H Diagnosis: Fall (on)(from) sidewalk curb;Dislocation of other parts of right shoulder girdle Presentation: 08/09 10:22 Chief complaint: Patient states: right shoulder dislocation. Coronavirus screen: At iw this time, the client does not indicate any symptoms associated with coronavirus-19. Ebola Screen: Patient negative for fever greater than or equal to 101.5 degrees Fahrenheit, and additional compatible Ebola Virus Disease symptoms Patient denies exposure to infectious person. Patient denies travel to an Ebola-affected area in the 21 days before illness onset. No symptoms or risks identified at this time. Initial Sepsis Screen: Does the patient meet any 2 criteria? No. Patient's initial sepsis screen is negative. Does the patient have a suspected source of infection? No. Patient's initial sepsis screen is negative. Risk Assessment: Do you want to hurt yourself or someone else? Patient reports no desire to harm self or others. 10:22 Acuity: CESAR 3 iw 10:22 Method Of Arrival: Ambulatory iw Historical: - Allergies: 10:22 No Known Allergies; iw - PMHx: 10:22 Chronic pain; Hypertension; Rheumatoid Arthritis; iw Vital Signs: 10:26 Temp 98.2(O); iw 10:27 BP 124 / 70; Pulse 60; Resp 18; Pulse Ox 100% on R/A; zm 11:27 Pulse 72; Resp 19 S; Pulse Ox 100% on R/A; aa5 ED Course: 10:14 Patient arrived in ED. mr 10:14 Heidy Harmon DO is Private Physician. mr 10:16 Chelsea Maloney [facility]-C [facility]. snw 10:16 Andrew Bishop DO is Attending Physician. snw 10:22 Emeli Danielle, RN is Primary Nurse. iw 10:22 Triage completed. iw 10:22 Arm band placed on. iw 11:18 Harmon, Carol Ann-Mati, DO is Referral Physician. snw Administered Medications: 10:57 Drug: Valium (diazepam) 5 mg Route: IVP; Site: left antecubital; iw 11:27 Follow up: Response: No adverse reaction aa5 11:27 Drug: Ondansetron 4 mg Route: PO; aa5 Outcome: 11:18 Discharge ordered by . snw 11:50 Patient left the ED. iw Signatures: Chelsea Maloney, LUIS FERNANDOC ACUPUNCTURIST-Csnw Gauri Banks mr Emeli Danielle RN RN iw Lesli Lopes RN RN aaCarol Soto
--- NOTE | 2022-08-09 11:18 | EDPHYS ---
Physician Documentation [facility] Name: Juan Nam Age: 72 yrs Sex: Male : 1950 Arrival Date: 08/09/2022 Time: 10:14 Bed 4 Private MD: Heidy Harmon H ED Physician Andrew Bishop HPI: 08/09 10:33 This 72 yrs old Male presents to ER via Ambulatory with complaints of Dislocated snw shoulder. 10:33 The patient or guardian complains of decreased range of motion, pain, that is acute, snw tenderness. right shoulder. Context: The problem was sustained outdoors, resulted from a fall, The patient experiences decreased range of motion, when attempts to raise arm, The patient notes a deformity, a deltoid step-off. Onset: The symptoms/episode began/occurred acutely. Severity of symptoms: At their worst the symptoms were moderate. The patient has not experienced similar symptoms in the past. It is unknown whether or not the patient has recently seen a physician. Historical: - Allergies: 10:22 No Known Allergies; iw - PMHx: 10:22 Chronic pain; Hypertension; Rheumatoid Arthritis; iw ROS: 10:32 Constitutional: Negative for fever, chills, and weight loss, Eyes: Negative for injury, snw pain, redness, and discharge, ENT: Negative for injury, pain, and discharge, Neck: Negative for injury, pain, and swelling, Cardiovascular: Negative for chest pain, palpitations, and edema, Respiratory: Negative for shortness of breath, cough, wheezing, and pleuritic chest pain, Abdomen/GI: Negative for abdominal pain, nausea, vomiting, diarrhea, and constipation, Back: Negative for injury and pain, : Negative for injury, bleeding, discharge, and swelling, Skin: Negative for injury, rash, and discoloration, Neuro: Negative for headache, weakness, numbness, tingling, and seizure, Psych: Negative for depression, anxiety, suicide ideation, homicidal ideation, and hallucinations. 10:32 MS/extremity: Positive for injury or acute deformity, decreased range of motion, pain, of the anterior aspect of right shoulder. Exam: 10:30 Constitutional: This is a well developed, well nourished patient who is awake, alert, snw and in no acute distress. Head/Face: Normocephalic, atraumatic. Eyes: Pupils equal round and reactive to light, extra-ocular motions intact. Lids and lashes normal. Conjunctiva and sclera are non-icteric and not injected. Cornea within normal limits. Periorbital areas with no swelling, redness, or edema. ENT: Nares patent. No nasal discharge, no septal abnormalities noted. Tympanic membranes are normal and external auditory canals are clear. Oropharynx with no redness, swelling, or masses, exudates, or evidence of obstruction, uvula midline. Mucous membranes moist. Neck: Trachea midline, no thyromegaly or masses palpated, and no cervical lymphadenopathy. Supple, full range of motion without nuchal rigidity, or vertebral point tenderness. No Meningismus. Chest/axilla: Normal chest wall appearance and motion. Nontender with no deformity. No lesions are appreciated. Cardiovascular: Regular rate and rhythm with a normal S1 and S2. No gallops, murmurs, or rubs. Normal PMI, no JVD. No pulse deficits. Respiratory: Lungs have equal breath sounds bilaterally, clear to auscultation and percussion. No rales, rhonchi or wheezes noted. No increased work of breathing, no retractions or nasal flaring. Abdomen/GI: Soft, non-tender, with normal bowel sounds. No distension or tympany. No guarding or rebound. No evidence of tenderness throughout. Back: No spinal tenderness. No costovertebral tenderness. Full range of motion. Skin: Warm, dry with normal turgor. Normal color with no rashes, no lesions, and no evidence of cellulitis. Neuro: Awake and alert, GCS 15, oriented to person, place, time, and situation. Cranial nerves II-XII grossly intact. Motor strength 5/5 in all extremities. Sensory grossly intact. Cerebellar exam normal. Normal gait. Psych: Awake, alert, with orientation to person, place and time. Behavior, mood, and affect are within normal limits. 10:30 Musculoskeletal/extremity: Extremities: grossly normal except: noted in the right arm: decreased ROM, tenderness, step off, ROM: no acute changes, Circulation is intact in all extremities. Sensation intact. Vital Signs: 10:26 Temp 98.2(O); iw 10:27 BP 124 / 70; Pulse 60; Resp 18; Pulse Ox 100% on R/A; zm 11:27 Pulse 72; Resp 19 S; Pulse Ox 100% on R/A; aa5 Procedures: 11:11 Reduction: of the right shoulder, using manipulation, external rotation and adduction, snw Immobilized with shoulder immobilizer. Patient tolerated well. Post reduction film - reveals normal alignment. MDM: 10:35 Patient medically screened. snw 11:18 Differential diagnosis: Anterior dislocation without fracture. Data reviewed: vital snw signs, nurses notes, radiologic studies, plain films. I considered the following discharge prescriptions or medication management in the emergency department Medications were administered in the Emergency Department. See MAR. Independent interpretation of the following test(s) in the Emergency Department X-Ray: My interpretation is Initial anterior shoulder dislocation, s/p manipulation post reduction films with reduction noted. . Care significantly affected by the following chronic conditions: Hypertension, RA. Counseling: I had a detailed discussion with the patient and/or guardian regarding: the historical points, exam findings, and any diagnostic results supporting the discharge/admit diagnosis, radiology results, the need for outpatient follow up, for definitive care, to return to the emergency department if symptoms worsen or persist or if there are any questions or concerns that arise at home. Special discussion: Based on the patient's history, exam and DX evaluation, there is no indication for emergent intervention or inpatient TX. It is understood by the patient/guardian that if the SXs persist or worsen they need to return immediately for re-evaluation. Based on the history and exam findings, there is no indication for further emergent testing or inpatient evaluation. I discussed with the patient/guardian the need to see the orthopedic surgeon for further evaluation of the symptoms. I discussed with the patient/guardian the need to see the primary care provider for further evaluation of the symptoms. 08/09 10:30 Order name: SL; Complete Time: 10:56 snw 08/09 10:32 Order name: Shoulder Right (2 View) XRAY snw 08/09 11:08 Order name: RAD; Complete Time: 11:10 EDMS 08/09 11:11 Order name: Shoulder Right (2 View) XRAY snw 08/09 11:30 Order name: RAD; Complete Time: 11:39 EDMS Administered Medications: 10:57 Drug: Valium (diazepam) 5 mg Route: IVP; Site: left antecubital; iw 11:27 Follow up: Response: No adverse reaction aa5 11:27 Drug: Ondansetron 4 mg Route: PO; aa5 Disposition: 18:53 Co-signature as Attending Physician, Andrew Bishop DO I was immediately available on-site ms3 in the Emergency Department for consultation in the care of the patient. Disposition Summary: 08/09/22 11:18 Discharge Ordered Location: Home snw Condition: Stable snw Diagnosis - Fall (on)(from) sidewalk curb snw - Dislocation of other parts of right shoulder girdle snw Followup: snw - With: - When: 2 - 3 days - Reason: Recheck today's complaints, Continuance of care, Re-evaluation by your physician Followup: snw - With: Emergency Department - When: As needed - Reason: Worsening of condition Discharge Instructions: - Discharge Summary Sheet snw - Shoulder Dislocation snw - Fall Prevention in the Home, Adult snw - How to Use a Shoulder Immobilizer snw - Shoulder Pain snw Forms: - Medication Reconciliation Form snw - Thank You Letter snw - Antibiotic Education snw - Prescription Opioid Use snw Prescriptions: - Mobic 7.5 mg Oral Tablet - take 1 tablet by ORAL route once daily take with food; 20 tablet; Refills: 0, snw Product Selection Permitted - orphenadrine citrate 100 mg Oral Tablet Sustained Release - take 1 tablet by ORAL route 2 times per day As needed; 20 tablet; Refills: 0, snw Product Selection Permitted Signatures: Dispatcher [employer] Chelsea Mcdonald FNP-C BIT BENDER-Csnw Emeli Danielle RN RN Lesli Lopes RN RN aaAndrew Figueroa DO DO ms3
[2022-08-09] MEDS ORDERED: ONDANSETRON 4 MG (ODT) TAB ONE (11:29)
--- NOTE | 2022-08-09 11:30 | RAD REPORT ---
EXAM DESCRIPTION: RAD - Shoulder Right 2 View - 08/09/2022 11:16 am CLINICAL HISTORY: post reduction COMPARISON: Shoulder Right 2 View dated 08/09/2022 FINDINGS/IMPRESSION: Relocated right shoulder. High-riding humeral head suggests rotator cuff pathol ogy. As noted on the previous radiograph, fractures of the humeral head and possibly glenoid may be p resent. CT could confirm if clinically indicated.
[2022-08-09 12:01] VITALS: TEMP 98.2
[2022-08-09 12:02] VITALS: BP 124/70; O2SAT 100
== END 2022-08-09 11:50 | disposition home or self-care (01) ==
LOC: ER 10:13
PROC: 0RSJXZZ Reposition Right Shoulder Joint, External Approach (ICD-10-PCS; principal; 2022-08-09)
DX: S43.394A Dislocation of other parts of right shoulder girdle, initial encounter (principal); W10.1XXA Fall (on)(from) sidewalk curb, initial encounter; I10 Essential (primary) hypertension
CPT/HCPCS: 73030 ×2; 96374; 99282; 23650; Q0162; J3360

== ENCOUNTER 2024-08-04 09:18 | Inpatient (IN) | payer OTHER, MEDICARE ==
[2024-08-04] MEDS ORDERED: NA CHLORIDE 0.9% 0 ML ONE (10:05)
[2024-08-04] MEDS ORDERED: VANCOMYCIN 1 GM/VIAL ONE (10:05)
[2024-08-04 10:19] LABS: Absolute Lymphocytes (CBC) 0.9 K/uL (0.7-4.9); Absolute Monocytes 0.6 K/uL (0.1-1.3); Absolute Neutrophil 14.3 K/uL (1.8-8.0); Basophils % 0.2 % (0-1.3); Hematocrit 43.1 % (39.6-49.0); Hemoglobin 14.2 g/dL (13.6-17.9); Lymphocytes % 5.8 % (15.3-44.8); MCH 30.4 pg (27.0-35.0); MCV 92.3 fL (80-100); MPV 9.3 fL (7.6-11.3); Monocytes % 3.7 % (3.3-12.3); Neutrophils % 90.3 % (41.7-73.7); Platelets 254 thou/uL (152-406); RBC Red Blood Cell Count 4.67 M/uL (4.33-5.43); Red Cell Distribution Width 13.8 % (12.1-15.2)
[2024-08-04 10:22] LABS: PT Prothrombin Time 11.9 SECONDS (10.0-13.0); PTT, Activated Partial Thromb 26.3 SECONDS (24.3-36.9); Protime INR 1.05
[2024-08-04 10:32] LABS: Albumin/Globulin Ratio 0.8 (1.1-1.8); Alkaline Phosphatase 164 U/L (45-117); Anion Gap 17.6 mEq/L (5.0-15.0); BUN Blood Urea Nitrogen 36 mg/dL (7-18); Bicarbonate 22 mEq/L (21-32); Bilirubin Total 0.9 mg/dL (0.2-1.0); Globulin 3.9 g/dL (2.3-3.5); Glomerular Filtration Rate 44 ml/min (=/>90); Potassium 3.6 mEq/L (3.5-5.1); Protein, Total 6.9 g/dL (6.4-8.2); Sodium Level 130 mEq/L (136-145)
[2024-08-04 10:33] LABS: ALT/SGPT < 14 U/L (16-61); AST/SGOT < 10 U/L (15-37)
[2024-08-04 10:34] LABS: Glucose Level 595 mg/dL (74-106)
--- NOTE | 2024-08-04 10:42 | RAD REPORT ---
EXAMINATION: XR Foot Left 3 View CLINICAL INDICATION: Male, 74 years old. [facility] MAIN wound Bed Name: 7 TECHNIQUE: 3 view radiographs of the left foot were obtained. COMPARISON: No prior exam. FINDINGS: No evidence of fracture, however there is rarefaction and lytic change involving the second metatarsal head. Limited soft tissue lucencies in this region may relate to soft tissue gas. Marked hallux valgus deformity with first angle measuring 58 degrees. Lateral subluxation of the firs t, second, and third proximal phalanges relative to the metatarsal heads. No evidence of arthropathy or other focal bone lesion. Soft tissue swelling about the forefootscattered up to modera te degenerative changes of the midfoot articulations. No significant degenerative changes. IMPRESSION: Rarefaction and lytic change involving the second metatarsal head, concerning for ongoing osteomyelit is. Soft tissue swelling about the forefoot, with questionable subtle soft tissue gas at the level of the second metatarsal head.
[2024-08-04] MEDS ORDERED: NA CHLORIDE 0.9% 2,000 ML ONE (11:02)
[2024-08-04 11:19] LABS: Blood Morphology Comment NOT SEEN (NOT SEEN); Platelet Estimate ADEQ; Toxic Granulation NOTED; White Blood Cell Scan OK (OK)
--- NOTE | 2024-08-04 11:33 | ER ---
Nurse's Notes [facility] Name: Juan Nam Age: 74 yrs Sex: Male : 1950 Arrival Date: 08/04/2024 Time: 09:18 Bed 7 Private MD: Diagnosis: Osteomyelitis of left foot;Septic shock;Hyperglycemia Presentation: 08/04 09:32 Chief complaint: Patient states: he was sent by wound care due to ongoing infection in ap3 right foot. patient complains of pain of which he rates a 6/10 on the pain scale. Coronavirus screen: At this time, the client does not indicate any symptoms associated with coronavirus-19. Ebola Screen: No symptoms or risks identified at this time. Initial Sepsis Screen: Does the patient meet any 2 criteria? HR > 90 bpm. Does the patient have a suspected source of infection? No. Patient's initial sepsis screen is negative. Risk Assessment: Do you want to hurt yourself or someone else? Patient reports no desire to harm self or others. Onset of symptoms is unknown. 09:32 Method Of Arrival: Ambulatory ap3 09:32 Acuity: CESAR 3 ap3 Triage Assessment: 09:35 General: Appears in no apparent distress. Behavior is calm, cooperative, appropriate ap3 for age. Pain: Complains of pain in left foot Pain currently is 6 out of 10 on a pain scale. Neuro: Level of Consciousness is awake, alert, obeys commands, Oriented to person, place, time, situation. Cardiovascular: Patient's skin is warm and dry. Respiratory: Airway is patent Respiratory effort is even, unlabored, Respiratory pattern is regular, symmetrical. Derm: Wound noted left foot Other: dressing present from wound care. Historical: - Allergies: 09:35 No Known Allergies; ap3 - PMHx: 09:35 Chronic pain; Hypertension; Rheumatoid Arthritis; ap3 - Immunization history:: Client reports receiving the 2nd dose of the Covid vaccine, Flu vaccine is not up to date. - Infectious Disease History:: Denies. - Social history:: Smoking status: Patient denies any tobacco usage or history of. - Family history:: not pertinent. Screenin:36 [facility] ED Fall Risk Assessment (Adult) History of falling in the last 3 months, ap3 including since admission No falls in past 3 months (0 pts) Confusion or Disorientation No (0 pts) Intoxicated or Sedated No (0 pts) Impaired Gait No (0 pts) Mobility Assist Device Used No (0 pt) Altered Elimination No (0 pt) Score/Fall Risk Level 0 - 2 = Low Risk Oriented to surroundings, Maintained a safe environment, Educated pt \T\ family on fall prevention, incl call for assistance when getting out of bed, Assessed \T\ reinforced patient's understanding of fall precautions, Hourly rounding (assess needs \T\ fall precautionary measures) done, Used ambulatory aids as needed (educated on \T\ assisted with). Abuse screen: Denies threats or abuse. Nutritional screening: No deficits noted. Tuberculosis screening: No symptoms or risk factors identified. Assessment: 09:45 General: Appears in no apparent distress. uncomfortable, Behavior is calm, cooperative, bp appropriate for age. 11:00 Reassessment: Patient appears in no apparent distress at this time. Patient is alert, bp oriented x 3, equal unlabored respirations, skin warm/dry/pink. Vital Signs: 09:32 BP 133 / 87; Pulse 91; Resp 17; Temp 98.6(O); Pulse Ox 98% on R/A; Weight 110.68 kg; ap3 Height 6 ft. 1 in. ; Pain 6/10; 10:00 BP 123 / 80; Pulse 79; Resp 19; Pulse Ox 95% ; bp 11:00 BP 121 / 63; Pulse 83; Resp 19; Pulse Ox 99% ; bp 20:03 BP 121 / 85; Pulse 70; Resp 15; Temp 98.6; Pulse Ox 99% ; Pain 0/10; bm8 09:32 Body Mass Index 32.19 (110.68 kg, 185.42 cm) ap3 09:32 Pain Scale: Adult ap3 20:03 Pain Scale: Adult bm8 Moro Coma Score: 20:03 Eye Response: spontaneous(4). Motor Response: obeys commands(6). Verbal Response: bm8 oriented(5). Total: 15. ED Course: 09:21 Patient arrived in ED. mr 09:21 Isaak Blanca MD is Attending Physician. rt 09:34 Triage completed. ap3 09:36 Arm band placed on right wrist. ap3 09:37 Danny Valdez, DOMINIC is Primary Nurse. bp 09:39 Foot Left 3 View XRAY In Process Unspecified. EDMS 09:45 Patient has correct armband on for positive identification. bp 09:55 Inserted saline lock: 20 gauge in right wrist, using aseptic technique. Blood bp collected. Flushed with 10 mL NS. 09:55 Initial lab(s) drawn, by me, sent to lab. First set of blood cultures drawn by me, bp Second set of blood cultures drawn by me. 11:31 Michael Linda MD is Hospitalizing Provider. rt 20:03 Provided Education on: need for admission. bm8 20:03 No provider procedures requiring assistance completed. Patient admitted, IV remains in bm8 place. Administered Medications: 10:10 Drug: vancoMYCIN IVPB 1 grams IVPB once over 2 hrs Route: IVPB; Infused Over: 2 hrs; bp Site: right wrist; 20:05 Follow up: Response: No adverse reaction; IV Status: Completed infusion; IV Intake: bm8 250ml 10:45 Drug: NS 0.9% IV (30 ml/kg) 30 ml/kg IV at bolus once; Sepsis Protocol; to be given as bp a bolus over 90 minutes Route: IV; Rate: bolus; Site: right wrist; 20:05 Follow up: Response: No adverse reaction; IV Status: Completed infusion; IV Intake: bm8 3320ml Medication: 20:03 VIS not applicable for this client. bm8 Intake: 20:05 IV: 250ml; Total: 250ml. bm8 20:05 IV: 3320ml; Total: 3570ml. bm8 Outcome: 11:32 Decision to Hospitalize by Provider. rt 20:03 Admitted to Med/surg accompanied by nurse, via wheelchair, room 219, bm8 20:03 Condition: stable 20:03 Instructed on follow up and referral plans. the need for admit, Demonstrated understanding of instructions, follow-up care, 20:40 Patient left the ED. bm8 Signatures: Dispatcher [employer] EDNC BanksGauri miller, Reg Reg mr Danny Valdez, RN RN bp Grace Sanchez RN RN [email or web address] Isaak Blanca MD MD rt Jean Monique RN RN bm8
--- NOTE | 2024-08-04 11:33 | EDPHYS ---
Physician Documentation [facility] Name: Juan Nam Age: 74 yrs Sex: Male : 1950 Arrival Date: 08/04/2024 Time: 09:18 Bed 7 Private MD: ED Physician Isaak Blanca HPI: 08/04 09:42 This 74 yrs old Male presents to ER via Ambulatory with complaints of Wound Check. rt 09:42 Patient presents to the ED with a wound to the left foot for about 2 weeks. Was seen rt and swabs that were done. Wound culture from about a week ago showed a resistant bacteria. wound care today, had Reports mild pain to the area denies other acute complaints at this time, symptoms are moderate in severity, no other aggravating or alleviating factors.. Historical: - Allergies: 09:35 No Known Allergies; ap3 - PMHx: 09:35 Chronic pain; Hypertension; Rheumatoid Arthritis; ap3 - Immunization history:: Client reports receiving the 2nd dose of the Covid vaccine, Flu vaccine is not up to date. - Infectious Disease History:: Denies. - Social history:: Smoking status: Patient denies any tobacco usage or history of. - Family history:: not pertinent. ROS: 09:42 Constitutional: Negative for fever, chills, and weight loss, Cardiovascular: Negative rt for chest pain, palpitations, and edema, Respiratory: Negative for shortness of breath, cough, wheezing, and pleuritic chest pain, Abdomen/GI: Negative for abdominal pain, nausea, vomiting, diarrhea, and constipation, Neuro: Negative for headache, weakness, numbness, tingling, and seizure, 09:42 MS/extremity: Positive for Wound, erythema, Exam: 09:42 Constitutional: This is a well developed, well nourished patient who is awake, alert, rt and in no acute distress. Head/Face: Normocephalic, atraumatic. Chest/axilla: Normal chest wall appearance and motion. Nontender with no deformity. No lesions are appreciated. Cardiovascular: Regular rate and rhythm with a normal S1 and S2. No gallops, murmurs, or rubs. Normal PMI, no JVD. No pulse deficits. Respiratory: Lungs have equal breath sounds bilaterally, clear to auscultation and percussion. No rales, rhonchi or wheezes noted. No increased work of breathing, no retractions or nasal flaring. Abdomen/GI: Soft, non-tender, with normal bowel sounds. No distension or tympany. No guarding or rebound. No evidence of tenderness throughout. Neuro: Awake and alert, GCS 15, oriented to person, place, time, and situation. Cranial nerves II-XII grossly intact. Motor strength 5/5 in all extremities. Sensory grossly intact. Cerebellar exam normal. Normal gait. 09:42 Musculoskeletal/extremity: Wound noted to the plantar aspect of the left foot over the first MTP, purulent drainage noted, surrounding erythema. Pulses, motor, sensation are intact. 10:35 ECG was reviewed by the Attending Physician. rt Vital Signs: 09:32 BP 133 / 87; Pulse 91; Resp 17; Temp 98.6(O); Pulse Ox 98% on R/A; Weight 110.68 kg; ap3 Height 6 ft. 1 in. ; Pain 6/10; 10:00 BP 123 / 80; Pulse 79; Resp 19; Pulse Ox 95% ; bp 11:00 BP 121 / 63; Pulse 83; Resp 19; Pulse Ox 99% ; bp 20:03 BP 121 / 85; Pulse 70; Resp 15; Temp 98.6; Pulse Ox 99% ; Pain 0/10; bm8 09:32 Body Mass Index 32.19 (110.68 kg, 185.42 cm) ap3 09:32 Pain Scale: Adult ap3 20:03 Pain Scale: Adult bm8 [place] Coma Score: 20:03 Eye Response: spontaneous(4). Motor Response: obeys commands(6). Verbal Response: bm8 oriented(5). Total: 15. MDM: 09:26 Medical Screening Exam initiated rt 13:20 Differential diagnosis: Sepsis, cellulitis, osteomyelitis. Data reviewed: vital signs, rt nurses notes, lab test result(s), EKG, radiologic studies. Consideration of Admission/Observation Patient was admitted/placed on observation. Management of patient was discussed with the following: Soft Shoe Dancer: Discussed with Dr. Mills, recommends n.p.o. past midnight. I considered the following discharge prescriptions or medication management in the emergency department Medications were administered in the Emergency Department. See MAR. Independent interpretation of the following test(s) in the Emergency Department X-Ray: My interpretation is Osteomyelitis, rotation of x-ray images. Care significantly affected by the following chronic conditions: Hypertension. Post IV fluid administration reassessment for Sepsis: Client prescribed 30 mL/kg IVF. Sepsis focused reassessment complete. Focused assessment performed: August 04, 2024 at 13:00 Heart: Regular rate/rhythm. Lungs: noted to be clear bilaterally. Capillary refill examination performed. Capillary refill noted to be brisk. Cardio: No change. Counseling: I had a detailed discussion with the patient and/or guardian regarding the historical points, exam findings, and any diagnostic results supporting the discharge/admit diagnosis, lab results, radiology results, the need for further work-up and treatment in the hospital. Response to treatment: There is no appreciated change of the patient's symptoms at this time. 08/04 09:36 Order name: Blood Culture Adult (2) rt 08/04 09:36 Order name: CBC with Diff; Complete Time: 16:13 rt 08/04 09:36 Order name: CMP; Complete Time: 10:37 rt 08/04 09:36 Order name: Lactate w/ 2H reflex if indic.; Complete Time: 10:42 rt 08/04 09:36 Order name: Protime (+inr); Complete Time: 10:37 rt 08/04 09:36 Order name: Ptt, Activated; Complete Time: 10:37 rt 08/04 10:25 Order name: CBC Smear Scan; Complete Time: 16:13 [facility] 08/04 10:40 Order name: Ghost Lactate-NO COLLECT Timer; Complete Time: 16:13 [facility] 08/04 11:50 Order name: Magnesium; Complete Time: 16:13 [place] 08/04 11:50 Order name: Phosphorus; Complete Time: 16:13 [place] 08/04 11:50 Order name: Urinalysis w/ reflexes 08/04 11:50 Order name: CBC with Automated Diff 08/04 11:50 Order name: CBC with Automated Diff [place] 08/04 11:50 Order name: Comprehensive Metabolic Panel [place] 08/04 11:50 Order name: Comprehensive Metabolic Panel [facility] 08/04 13:29 Order name: Lactate Sepsis 2 HR Follow-up; Complete Time: 16:13 [place] 08/04 15:25 Order name: Lipid Profile; Complete Time: 16:13 [place] 08/04 15:44 Order name: Hemoglobin A1c; Complete Time: 16:13 EDMS 08/04 16:47 Order name: Glucose, Ancillary Testing EDMS 08/04 09:36 Order name: Foot Left 3 View XRAY; Complete Time: 10:42 rt 08/04 16:12 Order name: MRI; Complete Time: 16:13 EDMS 08/04 09:36 Order name: Accucheck; Complete Time: 09:43 rt 08/04 09:36 Order name: Cardiac monitoring; Complete Time: 09:43 rt 08/04 09:36 Order name: EKG - Nurse/Tech; Complete Time: 10:18 rt 08/04 09:36 Order name: IV Saline Lock - Large Bore; Complete Time: 09:57 rt 08/04 09:36 Order name: Labs collected and sent; Complete Time: 09:57 rt 08/04 09:36 Order name: O2 Per Protocol; Complete Time: 09:37 rt 08/04 09:36 Order name: O2 Sat Monitoring; Complete Time: 09:43 rt 08/04 09:36 Order name: Vital Signs; Complete Time: 09:37 rt EC:35 Rate is 78 beats/min. Rhythm is regular, 1st Degree Block with PACs. Left axis rt deviation noted. RI interval is prolonged at 216 msec. QRS interval is normal. QT interval is normal. No Q waves. Administered Medications: 10:10 Drug: vancoMYCIN IVPB 1 grams IVPB once over 2 hrs Route: IVPB; Infused Over: 2 hrs; bp Site: right wrist; 20:05 Follow up: Response: No adverse reaction; IV Status: Completed infusion; IV Intake: bm8 250ml 10:45 Drug: NS 0.9% IV (30 ml/kg) 30 ml/kg IV at bolus once; Sepsis Protocol; to be given as bp a bolus over 90 minutes Route: IV; Rate: bolus; Site: right wrist; 20:05 Follow up: Response: No adverse reaction; IV Status: Completed infusion; IV Intake: bm8 3320ml Disposition Summary: 08/04/24 11:32 Hospitalization Ordered Notes: Hospitalization Status: Inpatient Admission rt Provider: Michael Linda rt Condition: Fair rt Problem: new rt Symptoms: have improved rt Bed/Room Type: Standard rt Location: Telemetry/MedSurg (Inpatient)(08/04/24 18:20) Room Assignment: 219(08/04/24 18:21) sp Diagnosis - Osteomyelitis of left foot rt - Septic shock rt - Hyperglycemia rt Forms: - Medication Reconciliation Form rt - SBAR form rt - Leadership Thank You Letter rt Critical care time excluding procedures: 13:20 Critical care time: Bedside Care: 30 minutes, Consultation: 10 minutes. Total time: 40 rt minutes Signatures: Dispatcher [employer] EDMS Nelly Brianna bd [place] Arce Brian, RN RN bp Grace Sanchez RN RN ap3 Isaak Blanca MD MD rt Jean Monique, RN RN bm8 Corrections: (The following items were deleted from the chart) 09:37 09:37 Foot Left 3 View+RAD.RAD.BRZ ordered. EDMS EDMS 13:00 11:32 Telemetry/MedSurg (Inpatient) rt bd 13:00 11:32 rt bd 18:20 13:00 [facility] ER HOLD bd sp 18:20 13:00 ERHOLD- bd sp 18:21 18:20 207 sp sp
[2024-08-04] MEDS ORDERED: ONDANSETRON 4 MG/2 ML VIAL IV PRN (11:45)
[2024-08-04] MEDS ORDERED: HYDRALAZINE HCL 20 MG/ML VIAL IV PRN (11:51)
--- NOTE | 2024-08-04 11:59 | P.HP ---
Certification for Inpatient Patient admitted to: Inpatient With expected LOS: >2 Midnights Patient will require the following post-hospital care: None Practitioner: I am a practitioner with admitting privileges, knowledge of patient current condition, hospital course, and medical plan of care. Services: Services provided to patient in accordance with Admission requirements found in Title 42 Section 412.3 of the Code of Federal Regulations <Mahesh Green Mynor - Last Filed: 08/04/24 18:39> Patient History Date of Service: 08/04/24 Reason for admission: Lefft foot wound History of Present Illness: Patient is a 74-year-old male with a past medical history significant for rheumatoid arthritis, chronic pain syndrome, hypertension, obesity, GERD who presents with complaint of wound to the left foot after being sent by his surgeon to come to the ER. Patient reported he noticed a wound under his foot 2 weeks ago which has become progressively worse. Patient reports some drainage from the wound. Patient followed up with a wound MD last week and had a follow- up appointment today. Patient also reports swelling and redness to left foot as well as pain to the foot . Patient rated pain as 6/10 in severity and described pain as aching in quality. Patient denies any other signs and symptoms. Symptoms are aggravated or relieved by nothing. Patient decided to present to the hospital as directed by his wound care doctor\Surgeon. - Past Medical/Surgical History Diabetic: No -: Rheumatoid arthritis -: GERD -: Obesity -: HTN -: spinal sx -: Laminectomy -: Left carpal tunnel sx - Family History Father -: Heart disease, Stroke Mother -: GI disease - Social History Smoking Status: Former smoker Alcohol use: Yes CD- Drugs: No Caffeine use: Yes Place of Residence: Home <YannickcelinemynorArthurnancy Barrios - Last Filed: 08/04/24 18:39> Date of Service: 08/04/24 <Mele Thomas - Last Filed: 08/21/24 02:29> Allergies No Known Allergies Allergy (Verified 02/25/23 08:58) Home Medications: Esomeprazole Magnesium [Nexium] 40 mg PO DAILY 01/19/15 Triamterene/Hctz [Maxzide 75*] 1 tab PO DAILY 01/19/15 Losartan Potassium [Cozaar*] 50 mg PO DAILY 05/31/19 Nifedipine Xl [Procardia XL*] 90 mg PO DAILY 05/31/19 predniSONE [Prednisone*] 10 mg PO DAILY 05/31/19 Aspirin [Aspirin EC 81 MG] 81 mg PO DAILY 12/31/19 Pegloticase [Krystexxa] 8 mg IV SEECOM 08/05/24 Sarilumab [Kevzara] 200 mg SQ SEECOM 08/05/24 Review of Systems General: Unremarkable Eyes: Unremarkable ENT: Unremarkable Respiratory: Unremarkable Cardiovascular: Unremarkable Gastrointestinal: Unremarkable Genitourinary: Unremarkable Musculoskeletal: Leg Pain, Foot Pain, Pedal edema Integumentary: Other (Left foot wound, redness ) Neurological: Unremarkable <Mahesh Green - Last Filed: 08/04/24 18:39> Physical Examination - Physical Exam General: Alert, In no apparent distress, Oriented x3, Cooperative HEENT: Atraumatic, PERRLA, Mucous membr. moist/pink, EOMI, Sclerae nonicteric Neck: Supple, 2+ carotid pulse no bruit, No LAD, Without JVD or thyroid abnormality Respiratory: Clear to auscultation bilaterally, Normal air movement Cardiovascular: Regular rate/rhythm, Normal S1 S2, Edema Capillary refill: <2 Seconds Gastrointestinal: Normal bowel sounds, Soft and benign, Non-distended, No tenderness Musculoskeletal: No clubbing, No swelling, No tenderness Integumentary: No rashes, Erythema Neurological: Normal gait, Normal speech, Normal tone, Normal affect Lymphatics: No axilla or inguinal lymphadenopathy - Studies Laboratory Data (last 24 hrs) 08/04/24 08/04/24 08/04/24 09:55 09:55 09:55 WBC 15.80 H Hgb 14.2 Hct 43.1 Plt Count 254 PT 11.9 INR 1.05 APTT 26.3 Sodium 130 L Potassium 3.6 BUN 36 H Creatinine 1.64 H Glucose 595 H* Total Bilirubin 0.9 AST < 10 L ALT < 14 L Alkaline Phosphatase 164 H <Mahesh Green - Last Filed: 08/04/24 18:39> Assessment and Plan - Plan Left foot diabetic ulcer\cellulitis. Left foot osteomyelitis. Leukocytosis. --Foot Xray indicates Rarefaction and lytic change involving the second metatarsal head, concerning for ongoing osteomyelitis. Soft tissue swelling about the forefoot, with questionable subtle soft tissue gas at the level of the second metatarsal head. --MRI foot pending for further evaluation. --Blood cultures pending. --Continue antibiotics. --Infectious disease MD and surgeon consulted. Recommendations appreciated. New onset DM2 with hyperglycemia. --BS monitoring with sliding scale, Premeal insulin and Lantus. --Diabetic education consult initiated. Chronic pain syndrome. --Continue current pain medication regimen GERD\rheumatoid arthritis --Continue home medications CKD 3B. --Stable. --Will continue to monitor renal functions. --Avoid nephrotoxins Dyslipidemia. --Further management per patient's PCP outpatient. Hypertension --Stable. Continue home medications. Class I obesity. --Likely secondary to excess caloric intake. --Patient counseled on weight reduction, dietary/therapy. DVT prophylaxis with heparin subQ Discharge Plan: Home Plan to discharge in: Greater than 2 days - Advance Directives Does patient have a Living Will: Yes Does patient have a Durable POA for Healthcare: Yes - Code Status/Comfort Care Code Status Assessed: Yes Physician Review: Patient Assessed, Agree with Above Assessment and Plan Critical Care: No <Mahesh Green - Last Filed: 08/04/24 18:39> Date of Service: 08/04/24 Chart has been reviewed. Events of the last 24 hours have been noted. Case discussed with JUAN. I performed a substantial part of the MDM during this patient's care today. I personally made or approved the documented management plan and acknowledge its risk of complications. I agree with the findings and documentation provided in the JUAN's notes <Mele Thomas - Last Filed: 08/21/24 02:29>
[2024-08-04] MEDS ORDERED: VANCOMYCIN 1 GM in NA CHLORIDE 0.9% 250 ML IVPB SCH (12:00)
[2024-08-04] MEDS ORDERED: GLUCAGON 1 MG/VIAL IM PRN ×2 (12:33)
[2024-08-04] MEDS ORDERED: D10W 125 ML IV PRN ×2 (12:33)
[2024-08-04] MEDS ORDERED: VANCOMYCIN 500 MG/VIAL ONE (12:49)
[2024-08-04] MEDS ORDERED: NA CHLORIDE 0.9% 250 ML ONE (12:50)
[2024-08-04] MEDS ORDERED: NA CHLORIDE 0.9% 100 ML ONE (12:53)
[2024-08-04] MEDS: VANCOMYCIN 500 MG in NA CHLORIDE 0.9% 100 ML IVPB SCH (12:54)
--- NOTE | 2024-08-04 16:11 | RAD REPORT ---
EXAM: MRI of the left foot without contrast HISTORY: Evaluate for osteomyelitis. Left foot Osteomyelitis COMPARISON: 08/04/2024, 08/02/2024 plain radiographs TECHNIQUE: Multiplanar multisequence MR images were obtained of the foot without contrast. FINDINGS: Subluxation/dislocation involves the second and third MTP joints. There is significant poorly defined edematous material surrounding the second and third proximal phalanges. Marrow replacement is not seen to indicate osteomyelitis. There is marrow edema seen distal second metatarsal as well as the pr oximal phalanx of the second toe. There is abnormal edematous and diminished T1 signal seen surrounding the distal second and third met atarsals. Prominent calcaneal spurs. IMPRESSION: Significant abnormal soft tissue is seen proximal aspect of the second and third toes as well as surr ounding the distal shafts of the second and third metatarsals. This suggests a significant soft tissue infection. However, currently, marrow signal is preserved indicating osteomyelitis is not pres ent. Subluxation/dislocation of the second and third MTP joints. Please note that evaluation is limited without IV contrast.
[2024-08-04] MEDS: INSULIN REGULAR (HUMAN) 100 UNIT/ML SQ SCH ×2 (16:30)
[2024-08-04] MEDS ORDERED: INSULIN REGULAR (HUMAN) 100 UNIT/ML ONE (17:13)
--- NOTE | 2024-08-04 17:56 | CON ---
Date of Consultation: 08/04/2024 Diagnoses: Cellulitis, abscess, possible osteomyelitis of the left foot with uncontrolled diabetes. History Of Present Illness: This is the case of a 74-year-old patient, comes to the wound healing ce nter today to my clinic with a swollen foot. Other than that, he did not have much of an issue, but we noticed the erythema is present. He has a diabetic ulcer open in the bottom and it was not draini ng at this moment, but then we explored that wound in the wound healing center and a lot of pus came through. We drained that with the help of a curette. We went through many cavities and the fluctuan ce where it all had been, at least until we get admitted to the hospital, get antibiotics, control hi s diabetes and then formally do an excision of that area and possible pulse lavage. When we sent the patient to the primary doctor here in ER, they found to also have a high glucose in the high 500s. His primary doctor is outside, so he was admitted to the hospitalist. Past Medical History: Includes GERD, obesity, hypertension, rheumatoid arthritis. Past Surgical History: Includes laminectomy, spinal surgery, left carpal tunnel surgery. Family History: Stroke and heart disease. Medications: He takes Nexium, Cozaar, Procardia, prednisone for his gout, aspirin. Review of Systems: No shortness of breath. No chest pain. No fever. Just the redness of the foot area. No dysuria, h ematuria, hematochezia, melena. No recent traveling out of the country. Review of systems 10 points otherwise unremarkable. Physical Examination: Vital Signs: Reviewed. General: The patient is awake, alert. HEENT: Pupils are equal and reactive. Anicteric. Neck: Supple. Chest: Clear. Heart: S1, S2. Abdomen: Soft and depressible. No guarding or rebound. No peritoneal signs. Extremities: Over the left foot, the patient has a plantar ulcer over the foot and up to the ankle w ith cellulitis. We probed that wound to the diabetic area, broke some loculations and were able to d rain the pus from that cavity now. He is going to need a formal debridement and possible pulse lavag e once his medical condition improves. Obviously when we tunnel this instrument inside, the patient is going to have an air there because it cannot connect to the outside but still debridement will be indicated. Laboratory Data: Blood work shows WBC count of 15.8, platelets of 254. INR is 1.05. Glucose 595. Lactic acid 4.4. Potassium 3.6, creatinine is 1.64. Foot x-ray review with findings consistent with osteomyelitis. Also, there is soft tissue gas. Once again, we interrogated the wound and put the p robe in, we feel bone in the first and second metatarsal region and goes all the way through almost t he dorsum of the foot with our instruments. We irrigated that area profusely and this may be well we have seen on the x-ray at this moment. Assessment: Diabetic foot ulcer with cellulitis of the foot. Plan: Once he is medically stable, his glucose gets under control and his acidosis gets under contro l, I want to formally take him to the surgery and do an examination under anesthesia and then debride ment of the left foot. The patient may need long-term antibiotics. He may need an MRI, also vascula r studies to see his circulation in that area, but at the same time his diabetes and his diabetic quan t and then his steroid to treat the gout or rheumatoid arthritis once again putting problem to this k ind of situation, so we discussed with him ways how to minimize this severe situation in the future. HM/MODL Voice ID: [id number] Report ID: [id number]
[2024-08-04] MEDS: SILVER SULFADIAZINE 1% 25 GM TOP SCH (21:00)
[2024-08-04] MEDS: CEFEPIME 2 GM in NA CHLORIDE 0.9% 100 ML IV SCH (22:21)
[2024-08-04] MEDS: INSULIN GLARGINE 100 UNIT/ML SQ SCH (22:21)
[2024-08-04] MEDS: HEPARIN 5000 UNIT/ML 1 ML VIAL SQ SCH (22:22)
[2024-08-05 04:35] LABS: Absolute Eosinophils 0.3 K/uL (0-0.5); Absolute Lymphocytes (CBC) 2.8 K/uL (0.7-4.9); Absolute Monocytes 1.4 K/uL (0.1-1.3); Absolute Neutrophil 9.9 K/uL (1.8-8.0); Basophils % 0.3 % (0-1.3); Eosinophils % 2.4 % (0-4.4); Hematocrit 40.5 % (39.6-49.0); Hemoglobin 13.7 g/dL (13.6-17.9); Lymphocytes % 19.3 % (15.3-44.8); MCH 30.7 pg (27.0-35.0); MCHC 33.8 g/dL (32.0-36.0); MCV 91.1 fL (80-100); MPV 9.1 fL (7.6-11.3); Monocytes % 9.4 % (3.3-12.3); Neutrophils % 68.6 % (41.7-73.7); Platelets 240 thou/uL (152-406); RBC Red Blood Cell Count 4.45 M/uL (4.33-5.43); Red Cell Distribution Width 13.8 % (12.1-15.2)
[2024-08-05 04:45] LABS: Albumin 2.5 g/dL (3.4-5.0); Albumin/Globulin Ratio 0.7 (1.1-1.8); Alkaline Phosphatase 108 U/L (45-117); Anion Gap 8.3 mEq/L (5.0-15.0); BUN Blood Urea Nitrogen 28 mg/dL (7-18); Bicarbonate 26 mEq/L (21-32); Globulin 3.7 g/dL (2.3-3.5); Glomerular Filtration Rate 68 ml/min (=/>90); Glucose Level 168 mg/dL (74-106); Potassium 3.3 mEq/L (3.5-5.1); Protein, Total 6.2 g/dL (6.4-8.2); Sodium Level 137 mEq/L (136-145)
[2024-08-05 04:48] LABS: ALT/SGPT < 14 U/L (16-61); AST/SGOT < 10 U/L (15-37)
[2024-08-05] MEDS ORDERED: ESOMEPRAZOLE MAGNESIUM 40 MG PO SCH (09:00)
[2024-08-05] MEDS: ASPIRIN EC 81 MG TAB PO SCH (09:13)
[2024-08-05] MEDS: PANTOPRAZOLE 40MG TABLET PO SCH (09:13)
[2024-08-05] MEDS: predniSONE 5 MG TAB PO SCH (09:14)
[2024-08-05] MEDS: POTASSIUM CL SA 10 MEQ TAB PO ONE ×2 (09:14→16:21)
[2024-08-05] MEDS: NIFEDIPINE XL 90 MG TABLET PO SCH (09:14)
[2024-08-05] MEDS: MAXZIDE (HCTZ 25/TRIAMTERENE 37.5MG) TAB PO SCH (09:14)
[2024-08-05] MEDS: VANCOMYCIN 1.5 GM in NA CHLORIDE 0.9% 500 ML IVPB SCH (09:15)
--- NOTE | 2024-08-05 13:23 | P.PN ---
Date of Service: 08/05/24 Subjective: Seen resting comfortably in bed. He states he feels much better. Denies any fevers overnight pain in the left foot is much improved. Associated symptoms include light headache. He rates the pain at a 5 out of 10 Review of Systems General: Unremarkable Eyes: Unremarkable ENT: Unremarkable Respiratory: Unremarkable Cardiovascular: Unremarkable Gastrointestinal: Unremarkable Genitourinary: Unremarkable Musculoskeletal: Leg Pain, Foot Pain, Pedal edema Integumentary: Other (Left foot wound, redness ) Neurological: Unremarkable Physical Examination - Physical Exam General: Alert, In no apparent distress, Oriented x3, Cooperative HEENT: Atraumatic, PERRLA, Mucous membr. moist/pink, EOMI, Sclerae nonicteric Neck: Supple, 2+ carotid pulse no bruit, No LAD, Without JVD or thyroid abnormality Respiratory: Clear to auscultation bilaterally, Normal air movement Cardiovascular: Regular rate/rhythm, Normal S1 S2, Edema Capillary refill: <2 Seconds Gastrointestinal: Normal bowel sounds, Soft and benign, Non-distended, No tenderness Musculoskeletal: No clubbing, No swelling, No tenderness Integumentary: No rashes, Erythema Neurological: Normal gait, Normal speech, Normal tone, Normal affect Lymphatics: No axilla or inguinal lymphadenopathy - Studies Laboratory Data (last 24 hrs) 08/04/24 08/04/24 08/04/24 09:55 09:55 09:55 WBC 15.80 H Hgb 14.2 Hct 43.1 Plt Count 254 PT 11.9 INR 1.05 APTT 26.3 Sodium 130 L Potassium 3.6 BUN 36 H Creatinine 1.64 H Glucose 595 H* Total Bilirubin 0.9 AST < 10 L ALT < 14 L Alkaline Phosphatase 164 H Assessment and Plan - Plan Left foot diabetic ulcer\cellulitis. Left foot osteomyelitis. Leukocytosis. --MRI foot without evidence of osteomyelitis --Foot Xray indicates Rarefaction and lytic change involving the second metatarsal head, concerning for ongoing osteomyelitis. Soft tissue swelling about the forefoot, with questionable subtle soft tissue gas at the level of the second metatarsal head. --Blood cultures no growth to date --Continue vancomycin --Infectious disease MD and surgeon consulted. Recommendations appreciated. New onset DM2 with hyperglycemia. Hypertriglyceridemia --BS monitoring with sliding scale, Premeal insulin and Lantus. --Diabetic education consult initiated. Chronic pain syndrome. --Continue current pain medication regimen Hypokalemia -Replace potassium GERD\rheumatoid arthritis --Continue home medications --Stop prednisone CKD 3B. --Stable. --Will continue to monitor renal functions. --Avoid nephrotoxins Dyslipidemia. --Further management per patient's PCP outpatient. Hypertension --Stable. Continue home medications. Class I obesity. --Likely secondary to excess caloric intake. --Patient counseled on weight reduction, dietary/therapy. DVT prophylaxis with heparin subQ Discharge Plan: Home Plan to discharge in: Greater than 2 days - Advance Directives Does patient have a Living Will: Yes Does patient have a Durable POA for Healthcare: Yes - Code Status/Comfort Care Code Status Assessed: Yes Physician Review: Patient Assessed, Agree with Above Assessment and Plan Critical Care: No
--- NOTE | 2024-08-05 16:48 | EKG ---
Test Date: 2024-08-04 Test Time: 10:15:13 Transformer Inspector: Katheryn SANTANA MEASUREMENT RESULTS: Intervals: Rate: 78 WA: 216 QRSD: 98 QT: 514 QTc: 585 [place]: P: 69 WA: 216 QRS: -47 T: -70 INTERPRETIVE STATEMENTS: Sinus rhythm with 1st degree AV block with premature atrial complexes Left axis deviation Inferior infarct, age undetermined Possible Anterior infarct, age undetermined Prolonged QT Abnormal ECG Compared to ECG 01/20/2015 08:17:48 Atrial premature complex(es) now present First degree AV block now present Left-axis deviation now present Prolonged QT interval now present ST (T wave) deviation no longer present Myocardial infarct finding still present Electronically Signed On 08-05-24 16:45:18 [employer]LTRY [employer] by Andi Seay
[2024-08-06] MEDS ORDERED: MIDAZOLAM HCL 2 MG/2 ML INJ ONE (07:08)
[2024-08-06] MEDS ORDERED: LIDOCAINE 2% MPF 5 ML VIAL ONE (07:08)
[2024-08-06] MEDS ORDERED: FENTANYL CITR 100 MCG/2 ML ONE ×2 (07:08→08:31)
[2024-08-06] MEDS ORDERED: propofoL 200 MG/20 ML VIAL IV ONE (07:08)
[2024-08-06] MEDS: NA CHLORIDE 0.9% 1,000 ML ONE (07:21)
[2024-08-06] MEDS: METHYLPREDNISOLONE 40 MG INJ ONE (07:52)
[2024-08-06] MEDS: METHYLPREDNISOLONE 125 MG INJ ONE (07:55)
[2024-08-06] MEDS: HYDROCORTISONE SUC 250 MG INJ ONE (07:55)
[2024-08-06] MEDS ORDERED: ONDANSETRON 4 MG/2 ML VIAL ONE (08:26)
--- NOTE | 2024-08-06 08:52 | P.BOP ---
Preoperative diagnosis: necrotic infected diabetic ulcer with osteomyelieis, cellulitis left foot Postoperative diagnosis: same Primary procedure: Excisional debridement of necrotic infected diabetic ulcer [id number] Secondary procedure: Pulse lavage Estimated blood loss: <20cc Specimen: culture Findings: thru and thru from plantar to dorsal foot necrotic infected diabetic ulcer Anesthesia: General Complications: None Transferred to: Recovery Room Condition: Good
[2024-08-06] MEDS: FENTANYL CITR 100 MCG/2 ML ONE (09:10)
--- NOTE | 2024-08-06 15:11 | P.PN ---
Subjective Date of Service: 08/06/24 Chief Complaint: Lefft foot wound Subjective: No new changes Underwent I&D this morning performed by Dr. Mills. Back on the floor. Denies any pain. at bedside Review of Systems 10-point ROS is otherwise unremarkable Physical Examination - Vital Signs Temperature: 98.7 F Blood Pressure: 139/70 Pulse: 73 Respirations: 16 Pulse Ox (%): 95 - Physical Exam General: Alert, Oriented x3 HEENT: Atraumatic Neck: Supple Respiratory: Clear to auscultation bilaterally Cardiovascular: No edema, Normal pulses, Regular rate/rhythm Capillary refill: <2 Seconds Gastrointestinal: Normal bowel sounds Musculoskeletal: No clubbing Neurological: Normal gait Lymphatics: No axilla or inguinal lymphadenopathy Assessment And Plan - Plan - Plan Left foot diabetic ulcer\cellulitis. Left foot osteomyelitis. Leukocytosis. --MRI foot without evidence of osteomyelitis --Foot Xray indicates Rarefaction and lytic change involving the second metatarsal head, concerning for ongoing osteomyelitis. Soft tissue swelling about the forefoot, with questionable subtle soft tissue gas at the level of the second metatarsal head. -- Status post I&D on 08/06/1024 --Awaiting wound culture results New onset DM2 with hyperglycemia. Hypertriglyceridemia --BS monitoring with sliding scale, Premeal insulin and Lantus. --Diabetic education consult initiated. Chronic pain syndrome. --Continue current pain medication regimen Hypokalemia -Replace potassium GERD\rheumatoid arthritis --Continue home medications --Stop prednisone CKD 3B. --Stable. --Will continue to monitor renal functions. --Avoid nephrotoxins Dyslipidemia. --Further management per patient's PCP outpatient. Hypertension --Stable. Continue home medications. Class I obesity. --Likely secondary to excess caloric intake. --Patient counseled on weight reduction, dietary/therapy. DVT prophylaxis with heparin subQ Discharge Plan: Home Plan to discharge in: Greater than 2 days Discharge Plan: Home Physician Review: Patient Assessed, Agree with Above Assessment and Plan
[2024-08-06] MEDS ORDERED: GLUCAGON 1 MG/VIAL IM PRN (20:02)
[2024-08-06] MEDS ORDERED: D50W 25 GM/50 ML SYRINGE IV PRN (20:02)
[2024-08-06] MEDS: INSULIN NPH (HUMAN) 100 UNITS/ML SQ SCH (20:46)
--- NOTE | 2024-08-06 21:57 | PN ---
Subjective: Patient lying in bed. Denies any headache, nausea, vomiting, chest pain, abdominal pain , constipation, or diarrhea. Objective: Vital Signs: Temperature 97, pulse 79, respirations 16, blood pressure 127/74. Lungs: Basal crackles. Heart: S1, S2. Regular. Abdomen: Soft, nontender. Bowel sounds present. Extremities: Left foot in surgical dressing. Laboratory Data: WBC 14.4, hemoglobin 13.7, platelets 240. BUN of 28, creatinine 1.5. Blood sugar at 4 p.m. is 350 and a.m. fasting is 206. A1c is 9.9. Assessment And Plan: A 74-year-old male with left foot second and third toe soft tissue involvement and second and third metatarsal with no evidence of osteomyelitis except soft tissue infection. Acco rding to the surgical team, patient had a lot of pus drained. Diabetic foot ulcer, diabetic neuropat hy, peripheral vascular disease, leukocytosis, improving. Continue current treatment with cefepime a nd vancomycin. Cultures are not showing any growth. We will continue to monitor patient. Monitor s igns of infection with WBC and fever. NF/MODL Voice ID: [id number] Report ID: [id number]
[2024-08-07 06:06] LABS: Absolute Basophils 0.1 K/uL (0-0.5); Absolute Lymphocytes (CBC) 2.5 K/uL (0.7-4.9); Absolute Monocytes 1.2 K/uL (0.1-1.3); Absolute Neutrophil 16.9 K/uL (1.8-8.0); Basophils % 0.7 % (0-1.3); Hematocrit 40.2 % (39.6-49.0); Hemoglobin 13.3 g/dL (13.6-17.9); Lymphocytes % 11.9 % (15.3-44.8); MCH 30.6 pg (27.0-35.0); MCHC 33.1 g/dL (32.0-36.0); MCV 92.3 fL (80-100); Monocytes % 5.6 % (3.3-12.3); Neutrophils % 81.8 % (41.7-73.7); Platelets 318 thou/uL (152-406); RBC Red Blood Cell Count 4.36 M/uL (4.33-5.43); Red Cell Distribution Width 14.2 % (12.1-15.2)
[2024-08-07 06:17] LABS: Anion Gap 10.7 mEq/L (5.0-15.0); Potassium 3.7 mEq/L (3.5-5.1)
[2024-08-07] MEDS ORDERED: D10W 125 ML IV PRN (08:06)
[2024-08-07] MEDS ORDERED: GLUCAGON 1 MG/VIAL IM PRN (08:06)
[2024-08-07 08:26] LABS: Blood Morphology Comment NOT SEEN (NOT SEEN); Differential Total Cells Count 100; Lymphocytes 13 % (15-42); Nucleated Red Blood Cells 1 /100WBC; Platelet Estimate ADEQ; Platelets, Giant FEW; Segmented Neutrophils 84 % (40-80); Toxic Granulation 1+
[2024-08-07] MEDS: INSULIN LISPRO 100 UNIT/1 ML SQ SCH (08:49)
[2024-08-07] MEDS: POTASSIUM CL SA 10 MEQ TAB PO ONE (08:50)
[2024-08-07] MEDS ORDERED: INSULIN LISPRO 100 UNIT/1 ML SQ SCH (09:00)
[2024-08-07] MEDS: VANCOMYCIN 1.75 GM in NA CHLORIDE 0.9% 500 ML IVPB SCH (09:46)
--- NOTE | 2024-08-07 11:21 | P.PN ---
Subjective Date of Service: 08/07/24 Chief Complaint: Lefft foot wound Subjective: No chest pain or shortness of breath. No nausea or vomiting. No abdominal pain. No obvious bleeding. Looks comfortable in the bed. Left foot pain is controlled. Objective: General appearance: Alert and comfortable CVS: Normal S1 and S2 Lungs: Clear to auscultation bilaterally Abdomen: Soft, bowel sounds present, no tenderness Extremities: Mild b/l LE edema, Lt>Rt, improving as per patient. Physical Examination - Vital Signs Temperature: 98.5 F Blood Pressure: 125/64 Pulse: 66 Respirations: 16 Pulse Ox (%): 95 Assessment And Plan - Plan Assessment and Plan: 1. Left foot osteomyelitis. Leukocytosis. --MRI foot without evidence of osteomyelitis --Foot Xray indicates Rarefaction and lytic change involving the second metatarsal head, concerning for ongoing osteomyelitis. Soft tissue swelling about the forefoot, with questionable subtle soft tissue gas at the level of the second metatarsal head. -- Status post I&D on 08/06/1024 --Awaiting wound culture results -continue IV antibiotics. -ID team following, appreciate recs 2. New onset DM2 with hyperglycemia. Hypertriglyceridemia --BS high, adjsuted insulin --Diabeticdiet 3. Chronic pain syndrome. --Continue current pain medication regimen 4. Hypokalemia -Replaced. 5. GERD\rheumatoid arthritis --Continue home medications --Stop prednisone 6. CKD 3B. --Stable. --Will continue to monitor renal functions. --Avoid nephrotoxins 7. Dyslipidemia. 8. Hypertension --Stable. Continue home medications. 9. obesity. --consider weight loss, f/u with PCP DVT prophylaxis with heparin subQ Plan Discussed with the patient and family at bedside, discharge plan depends all clinical progress. Physician Review: Patient Assessed, Agree with Above Assessment and Plan
[2024-08-07] MEDS: INSULIN GLARGINE 100 UNIT/ML SQ SCH (21:00)
[2024-08-08 06:13] LABS: Anion Gap 8.7 mEq/L (5.0-15.0); Potassium 3.7 mEq/L (3.5-5.1)
[2024-08-08] MEDS: POTASSIUM CL SA 10 MEQ TAB PO ONE (09:05)
[2024-08-08] MEDS: HYDROCODONE/APAP 10/325 TAB PO PRN (09:05)
[2024-08-08] MEDS ORDERED: D10W 125 ML IV PRN (09:24)
--- NOTE | 2024-08-08 13:17 | P.PN ---
Subjective Date of Service: 08/08/24 Chief Complaint: Lefft foot wound Subjective: No chest pain or shortness of breath. No nausea or vomiting. No abdominal pain. No obvious bleeding. Looks comfortable in the bed. Left foot pain is controlled. Objective: General appearance: Alert and comfortable CVS: Normal S1 and S2 Lungs: Clear to auscultation bilaterally Abdomen: Soft, bowel sounds present, no tenderness Extremities: trace b/l LE edema. Left foot has dressing. Physical Examination - Vital Signs Temperature: 98.0 F Blood Pressure: 121/74 Pulse: 65 Respirations: 20 Pulse Ox (%): 95 Assessment And Plan - Plan Assessment and Plan: 1. Left foot osteomyelitis. Leukocytosis. --MRI foot without evidence of osteomyelitis --Foot Xray indicates Rarefaction and lytic change involving the second metatarsal head, concerning for ongoing osteomyelitis. Soft tissue swelling about the forefoot, with questionable subtle soft tissue gas at the level of the second metatarsal head. -- Status post I&D on 08/06/1024 --wound culture group B strep -continue IV antibiotics. -ID team following, appreciate recs 2. New onset DM2 with hyperglycemia. Hypertriglyceridemia --BS better with insulin --Diabetic diet -Monitor sugars closely 3. Chronic pain syndrome. --Continue current pain medication regimen 4. Hypokalemia -Replaced. 5. GERD\rheumatoid arthritis --Continue home medications --Stop prednisone 6. CKD 3B. --Stable. --Will continue to monitor renal functions. --Avoid nephrotoxins 7. Dyslipidemia. 8. Hypertension --Stable. Continue home medications. 9. obesity. --consider weight loss, f/u with PCP DVT prophylaxis with heparin subQ Plan Discussed with the patient and family at bedside, discharge plan depends all clinical progress and clearance from consultants.. Physician Review: Patient Assessed, Agree with Above Assessment and Plan
[2024-08-08] MEDS: Meropenem 500 MG in NA CHLORIDE 0.9% 100 ML IV SCH (17:19)
[2024-08-09 04:33] LABS: Absolute Basophils 0.1 K/uL (0-0.5); Absolute Eosinophils 0.6 K/uL (0-0.5); Absolute Lymphocytes (CBC) 2.9 K/uL (0.7-4.9); Absolute Monocytes 1.1 K/uL (0.1-1.3); Absolute Neutrophil 8.2 K/uL (1.8-8.0); Basophils % 1.1 % (0-1.3); Eosinophils % 4.4 % (0-4.4); Hematocrit 39.1 % (39.6-49.0); Hemoglobin 13.1 g/dL (13.6-17.9); Lymphocytes % 22.5 % (15.3-44.8); MCHC 33.5 g/dL (32.0-36.0); MCV 92.7 fL (80-100); MPV 8.7 fL (7.6-11.3); Monocytes % 8.8 % (3.3-12.3); Neutrophils % 63.2 % (41.7-73.7); Nucleated Red Blood Cells % 0.1 % (0-0); Platelets 305 thou/uL (152-406); RBC Red Blood Cell Count 4.22 M/uL (4.33-5.43); Red Cell Distribution Width 13.9 % (12.1-15.2)
[2024-08-09 04:54] LABS: Anion Gap 8.9 mEq/L (5.0-15.0); Potassium 3.9 mEq/L (3.5-5.1)
[2024-08-09] MEDS: POTASSIUM CL SA 10 MEQ TAB PO ONE (08:29)
[2024-08-09] MEDS: VANCOMYCIN 1.5 GM in NA CHLORIDE 0.9% 500 ML IVPB SCH (09:10)
--- NOTE | 2024-08-09 15:37 | P.PN ---
Subjective Date of Service: 08/09/24 Chief Complaint: Lefft foot wound Subjective: No chest pain or shortness of breath. No nausea or vomiting. No abdominal pain. No obvious bleeding. Looks comfortable in the bed. Left foot pain is controlled. Objective: General appearance: Alert and comfortable CVS: Normal S1 and S2 Lungs: Clear to auscultation bilaterally Abdomen: Soft, bowel sounds present, no tenderness Extremities: trace b/l LE edema. Left foot has dressing. Physical Examination - Vital Signs Temperature: 97.9 F Blood Pressure: 132/68 Pulse: 70 Respirations: 16 Pulse Ox (%): 94 Assessment And Plan - Plan Assessment and Plan: 1. Left foot osteomyelitis. Leukocytosis. WBC improving --MRI foot without evidence of osteomyelitis --Foot Xray indicates Rarefaction and lytic change involving the second metatarsal head, concerning for ongoing osteomyelitis. Soft tissue swelling about the forefoot, with questionable subtle soft tissue gas at the level of the second metatarsal head. -- Status post I&D on 08/06/1024 --wound culture group B strep -continue IV antibiotics. -ID team following, appreciate recs 2. New onset DM2 with hyperglycemia. Hypertriglyceridemia --BS better with insulin --Diabetic diet -Monitor sugars closely 3. Chronic pain syndrome. --Continue current pain medication regimen 4. Hypokalemia -Replaced. 5. GERD\rheumatoid arthritis --Continue home medications --Stop prednisone 6. CKD 3B. --Stable. --Will continue to monitor renal functions. --Avoid nephrotoxins 7. Dyslipidemia. 8. Hypertension --Stable. Continue home medications. 9. obesity. --consider weight loss, f/u with PCP DVT prophylaxis with heparin subQ Plan Discussed with the patient and family at bedside, discharge plan depends all clinical progress and clearance from consultants, waiting on ABX plan from ID and surgical team clearance. Physician Review: Patient Assessed, Agree with Above Assessment and Plan
[2024-08-09] MEDS: Meropenem 1,000 MG in NA CHLORIDE 0.9% 100 ML IV SCH (16:32)
[2024-08-10 05:04] LABS: Absolute Eosinophils 0.6 K/uL (0-0.5); Absolute Lymphocytes (CBC) 2.1 K/uL (0.7-4.9); Absolute Monocytes 1.6 K/uL (0.1-1.3); Absolute Neutrophil 8.4 K/uL (1.8-8.0); Basophils % 0.4 % (0-1.3); Eosinophils % 4.5 % (0-4.4); Hematocrit 36.3 % (39.6-49.0); Hemoglobin 12.2 g/dL (13.6-17.9); Lymphocytes % 16.6 % (15.3-44.8); MCH 30.8 pg (27.0-35.0); MCHC 33.6 g/dL (32.0-36.0); MCV 91.8 fL (80-100); MPV 8.7 fL (7.6-11.3); Monocytes % 12.6 % (3.3-12.3); Neutrophils % 65.9 % (41.7-73.7); Nucleated Red Blood Cells % 0.2 % (0-0); Platelets 272 thou/uL (152-406); RBC Red Blood Cell Count 3.96 M/uL (4.33-5.43)
[2024-08-10 05:16] LABS: Anion Gap 9.2 mEq/L (5.0-15.0); Potassium 3.2 mEq/L (3.5-5.1)
[2024-08-10] MEDS: POTASSIUM CL SA 10 MEQ TAB PO ONE (08:00)
--- NOTE | 2024-08-10 14:12 | P.PN ---
Subjective Date of Service: 08/10/24 Chief Complaint: Lefft foot wound Subjective: No chest pain or shortness of breath. No nausea or vomiting. No abdominal pain. No obvious bleeding. Looks comfortable in the bed. Left foot pain is controlled. Objective: General appearance: Alert and comfortable CVS: Normal S1 and S2 Lungs: Clear to auscultation bilaterally Abdomen: Soft, bowel sounds present, no tenderness Extremities: trace b/l LE edema. Left foot has dressing. Physical Examination - Vital Signs Temperature: 99.3 F Blood Pressure: 135/68 Pulse: 92 Respirations: 16 Pulse Ox (%): 98 - Studies Microbiology Data (last 24 hrs): 08/04/24 09:45 Blood - Blood Aerobic Blood Culture - Final No growth in 5 days. 08/04/24 09:45 Blood - Blood Anaerobic Blood Culture - Final No growth in 5 days. 08/04/24 09:55 Blood - Blood Aerobic Blood Culture - Final No growth in 5 days. 08/04/24 09:55 Blood - Blood Anaerobic Blood Culture - Final No growth in 5 days. Assessment And Plan - Plan Assessment and Plan: Labs reviewed 74-year-old patient with the left foot infection, status post I&D, cultures growing group B strep, discussed with ID team this morning, recommending 6 weeks of antibiotics, discussed with case management to work on rehab placement. 1. Left foot osteomyelitis. Leukocytosis. WBC improving --MRI foot without evidence of osteomyelitis --Foot Xray indicates Rarefaction and lytic change involving the second metatarsal head, concerning for ongoing osteomyelitis. Soft tissue swelling about the forefoot, with questionable subtle soft tissue gas at the level of the second metatarsal head. -- Status post I&D --wound culture group B strep -continue IV antibiotics, d/w Dr. Quezada today, plan for 6 weeks meropenem and doxy -ID team following, appreciate recs -Tried to reach Dr. Mills but no answer, will try to reach out again later today or tomorrow 2. New onset DM2 with hyperglycemia. Hypertriglyceridemia --BS better with insulin, continue current insulin. Not on any meds at home, new DM diagnosis this admit --Diabetic diet -Monitor sugars closely 3. Chronic pain syndrome. --Continue current pain medication regimen 4. Hypokalemia -Replaced. 5. GERD\rheumatoid arthritis --Continue home medications --Stop prednisone 6. CKD 3B. --Stable. --Will continue to monitor renal functions. --Avoid nephrotoxins 7. Dyslipidemia. 8. Hypertension --Stable. Continue home medications. 9. obesity. --consider weight loss, f/u with PCP 10. Anemia: Secondary to acute illness, monitor closely. DVT prophylaxis with heparin subQ Plan Discussed with the patient and family at bedside, discharge to rehab soon. Physician Review: Patient Assessed, Agree with Above Assessment and Plan
--- NOTE | 2024-08-10 15:35 | PN ---
Date of Progress Note: 08/10/2024 Diagnosis: Osteomyelitis of left foot. Subjective: Patient is doing well. No complaint. When we did surgery, the bone is exposed. It is contaminated especially the second metatarsal bone. The toe does not destruction of the c artilage and ligaments around the area, just dislocated that toe. Still the toe had a blood supply t o it. The bone was exposed and the area was debrided under surgery and shows some improvement now. Plan: Will be wound care. I talked to Dr. Sosa today at bedside. [facility] and [facility] has an idea of the disease and we might have to do the long-term antibiotics. Continue rosa ssing changes, and diabetes control is essential. HM/MODL Voice ID: [id number] Report ID: [id number]
--- NOTE | 2024-08-10 16:25 | CON ---
Date of Consultation: 08/04/2024 History Of Present Illness: The patient was seen in the emergency room for evaluation of osteomyelit is involving the left foot ulcer and cellulitis. The patient has significant past medical history of rheumatoid arthritis, chronic pain syndrome, hypertension, morbid obesity, gastroesophageal reflux d haley, was sent to the emergency room by the surgeon who found excessive amount of pus coming out of his foot. The patient was also found to have significantly elevated sugar levels of 595, which leila ent did not know that he has diabetes in the past. His A1c level was 9.9. Past Medical History: As per HPI. Social History: Nonsmoker. Nondrinker. Family History: Noncontributory. Medications: Cefepime and vancomycin. See MARs for other medications. Allergies: NO KNOWN DRUG ALLERGIES. Review of Systems: A 10-point review was performed. Physical Examination: General: This is a 74-year-old male, lying in bed, not in any acute cardiopulmonary distress. Vital Signs: Temperature 98, pulse 90, respirations 17, blood pressure 133/87. HEENT: Unremarkable. Neck: Supple. Lungs: Basal crackles. Heart: S1, S2. Regular. Abdomen: Soft, nontender. Bowel sounds present. Extremities: Left foot wound noted. Laboratory Data: Shows BUN of 36, creatinine 1.6, WBC 15.8, hemoglobin 14.2, platelets 254. Culture s are pending. Assessment And Plan: Left foot diabetic foot ulcer in a 74-year-old male with newly diagnosed diabet es mellitus with a blood sugar of 595 and A1c of 9.9 involving large amount of pus was drained by the surgical team at the clinic visit. Rheumatoid arthritis. Morbid obesity. History of smoking. Leukocytosis. Renal insufficiency. Continue to monitor signs of infection with WBC and fever trends. We will follow the patient as need ed. NF/MODL Voice ID: [id number] Report ID: [id number]
--- NOTE | 2024-08-10 16:59 | PN ---
Date of Progress Note: 08/08/2024 Subjective: The patient is lying in bed. No new acute event. Chart reviewed. Objective: Vital Signs: Reviewed. Lungs: Basal crackles. Heart: S1, S2. Regular. Abdomen: Soft, nontender. Bowel sounds present. Extremities: Trace edema. Foot wound was noted. Laboratory Data: Shows BUN of 31, creatinine 1.2. WBC 20,000, hemoglobin 13.3, platelets are 318. Micro data: Blood cultures are negative to date. Wound cultures are growing Strep B. Assessment And Plan: Left foot diabetic foot ulcer, status post surgical debridement, possibly invol ving the bone. Initial wound cultures are growing Strep agalactiae group B from the wound site. Blo od cultures are negative. We will recommend to switch antibiotics to meropenem and vancomycin at thi s time from cefepime and vancomycin. Leukocytosis. Renal insufficiency is improving. New-onset diabetes mellitus. Possible 6 weeks of IV antibiotics. We will confirm with the surgical team for possible bone involve ment. We will follow the patient closely and monitor signs of infection with WBC and fever trends. NF/MODL Voice ID: [id number] Report ID: [id number]
--- NOTE | 2024-08-10 18:20 | PN ---
Subjective: The patient is lying in bed. The patient is seen with the surgical team, which showed e xtensiveness of the wound and destruction of the bone of second toe causing second toe to be freely m obile. Surgical team was able to probe the wound without any problems and discomfort to the patient. Objective: Vital Signs: Temperature 99, pulse 90, respirations 16, blood pressure 135/68. Lungs: Basal crackles. Heart: S1, S2. Regular. Abdomen: Soft, nontender. Bowel sounds present. Extremities: Left foot wound status post debridement. Assessment: 1. Diabetic neuropathy. 2. Diabetic foot ulcer, status post surgical debridement. 3. Osteomyelitis of second metatarsal head and phalanx. 4. Rheumatoid arthritis. Plan: 1. The patient is currently on meropenem. We will add doxycycline. 2. Consider long-term acute care with daily wound care and hyperbaric treatment. 3. Monitor kidney and liver function while the patient is on antibiotic. We will follow the patient closely. Monitor signs of infection with WBC and fever trend. NF/MODL Voice ID: [id number] Report ID: [id number]
[2024-08-10] MEDS: DOXYCYCLINE 100 MG in NA CHLORIDE 0.9% 100 ML IVPB SCH (20:28)
[2024-08-10 23:48] VITALS: O2SAT 94
[2024-08-11 05:15] LABS: Absolute Basophils 0.1 K/uL (0-0.5); Absolute Eosinophils 0.3 K/uL (0-0.5); Absolute Lymphocytes (CBC) 2.1 K/uL (0.7-4.9); Absolute Monocytes 1.9 K/uL (0.1-1.3); Basophils % 0.4 % (0-1.3); Eosinophils % 1.9 % (0-4.4); Hematocrit 36.1 % (39.6-49.0); Hemoglobin 12.1 g/dL (13.6-17.9); Lymphocytes % 12.8 % (15.3-44.8); MCH 30.7 pg (27.0-35.0); MCHC 33.5 g/dL (32.0-36.0); MCV 91.6 fL (80-100); MPV 8.6 fL (7.6-11.3); Monocytes % 11.4 % (3.3-12.3); Neutrophils % 73.5 % (41.7-73.7); Platelets 289 thou/uL (152-406); RBC Red Blood Cell Count 3.94 M/uL (4.33-5.43); Red Cell Distribution Width 13.7 % (12.1-15.2)
[2024-08-11 05:26] LABS: Anion Gap 10.5 mEq/L (5.0-15.0); Potassium 3.5 mEq/L (3.5-5.1)
[2024-08-11] MEDS: POTASSIUM CL SA 10 MEQ TAB PO ONE (08:27)
[2024-08-11] MEDS: ACETAMINOPHEN 325 MG TABLET PO PRN (10:05)
--- NOTE | 2024-08-11 14:11 | PN ---
Subjective: The patient lying in bed. No new acute event. Chart reviewed. Objective: Vital Signs: Reviewed. Lungs: Basal crackles. Heart: S1, S2. Regular. Abdomen: Soft, nontender. Bowel sounds present. Extremities: Trace edema of left foot wound noted. Laboratory Data: Reviewed. Assessment And Plan: 1. Diabetic foot ulcer with osteomyelitis of second metatarsal. 2. Diabetic neuropathy. 3. Rheumatoid arthritis. 4. New-onset diabetes mellitus. Continue IV antibiotic and wound care, pending long-term acute care transfer. The patient needs ben y wound care and hyperbaric treatment. We will follow the patient closely. NF/MODL Voice ID: [id number] Report ID: [id number]
--- NOTE | 2024-08-11 18:36 | P.PN ---
Subjective Date of Service: 08/11/24 Chief Complaint: Lefft foot wound Left lower extremity osteomyelitis, pending LTAC for 6 weeks of IV antibiotics, with hyperbaric wound care after discharge <Lucy Hines - Last Filed: 08/11/24 18:37> Date of Service: 08/11/24 <Mele Thomas - Last Filed: 08/21/24 02:30> Review of Systems 10-point ROS is otherwise unremarkable <Lucy Hines - Last Filed: 08/11/24 18:37> Physical Examination - Vital Signs Temperature: 99.5 F Blood Pressure: 144/59 Pulse: 75 Respirations: 16 Pulse Ox (%): 99 - Physical Exam General: Alert, In no apparent distress, Oriented x3 HEENT: Atraumatic, Normocephalic, PERRLA Neck: Supple, 2+ carotid pulse no bruit, JVD not distended Respiratory: Clear to auscultation bilaterally, Normal air movement Cardiovascular: No edema, Normal pulses, Regular rate/rhythm, Normal S1 S2 Gastrointestinal: Normal bowel sounds, Soft and benign, Non-distended Musculoskeletal: Other (Left lower extremity dressing intact, positive pulses) Neurological: Normal speech, Normal strength at 5/5 x4 extr, Other (Unsteady gait) <Lucy Hines - Last Filed: 08/11/24 18:37> Assessment And Plan - Plan 1. Left foot osteomyelitis. Leukocytosis. WBC improving --MRI foot without evidence of osteomyelitis --Foot Xray indicates Rarefaction and lytic change involving the second metatarsal head, concerning for ongoing osteomyelitis. Soft tissue swelling about the forefoot, with questionable subtle soft tissue gas at the level of the second metatarsal head. -- Status post I&D --wound culture group B strep -continue IV antibiotics, d/w Dr. Quezada today, plan for 6 weeks meropenem and doxy -ID team following, appreciate recs -Pending LTAC for 6 weeks of IV antibiotics, hyperbaric wound care, 2. New onset DM2 with hyperglycemia. Hypertriglyceridemia --BS better with insulin, continue current insulin. Not on any meds at home, new DM diagnosis this admit --Diabetic diet -Monitor sugars closely 3. Chronic pain syndrome. --Continue current pain medication regimen 4. Hypokalemia -Replaced. 5. GERD\rheumatoid arthritis --Continue home medications --Stop prednisone 6. CKD 3B. --Stable. --Will continue to monitor renal functions. --Avoid nephrotoxins 7. Dyslipidemia. 8. Hypertension --Stable. Continue home medications. 9. obesity. --consider weight loss, f/u with PCP 10. Anemia: Secondary to acute illness, monitor closely. DVT prophylaxis with heparin subQ Discharge Plan: LTAC Physician Review: Patient Assessed, Agree with Above Assessment and Plan Critical Care: No Time Spent Managing PTS Care (In Minutes): 35 <Lucy Hines - Last Filed: 08/11/24 18:37> Date of Service: 08/11/24 Chart has been reviewed. Events of the last 24 hours have been noted. Case discussed with JUAN. I performed a substantial part of the MDM during this patient's care today. I personally made or approved the documented management plan and acknowledge its risk of complications. I agree with the findings and documentation provided in the JUAN's notes <Mele Thomas - Last Filed: 08/21/24 02:30>
[2024-08-12 04:02] VITALS: BMI 32.3
[2024-08-12 04:38] LABS: Absolute Basophils 0.1 K/uL (0-0.5); Absolute Eosinophils 0.3 K/uL (0-0.5); Absolute Monocytes 1.7 K/uL (0.1-1.3); Absolute Neutrophil 10.5 K/uL (1.8-8.0); Basophils % 0.4 % (0-1.3); Eosinophils % 2.1 % (0-4.4); Hemoglobin 11.9 g/dL (13.6-17.9); Lymphocytes % 13.6 % (15.3-44.8); MCH 30.3 pg (27.0-35.0); MCHC 33.2 g/dL (32.0-36.0); MCV 91.5 fL (80-100); MPV 8.5 fL (7.6-11.3); Monocytes % 11.6 % (3.3-12.3); Neutrophils % 72.3 % (41.7-73.7); Platelets 292 thou/uL (152-406); RBC Red Blood Cell Count 3.93 M/uL (4.33-5.43); Red Cell Distribution Width 13.8 % (12.1-15.2)
[2024-08-12 05:02] LABS: Anion Gap 10.6 mEq/L (5.0-15.0); Potassium 3.6 mEq/L (3.5-5.1)
--- NOTE | 2024-08-12 14:51 | P.PN ---
Date of Service: 08/12/24 Subjective Left lower extremity osteomyelitis, pending LTAC for 6 weeks of IV antibiotics, with hyperbaric wound care after discharge no compliants Review of Systems 10-point ROS is otherwise unremarkable Physical Examination - Vital Signs reviewed - Physical Exam General: Alert, In no apparent distress, Oriented x3, afebrile HEENT: Atraumatic, Normocephalic, PERRLA Neck: Supple, 2+ carotid pulse no bruit, JVD not distended Respiratory: Clear to auscultation bilaterally, unlabored Cardiovascular: No edema, Normal pulses, Regular rate/rhythm, Normal S1 S2 Gastrointestinal: Normal bowel sounds, Soft and benign, non-tender Musculoskeletal: Other (Left lower extremity dressing intact, positive pulses) Neurological: Normal speech, Normal strength at 5/5 x4 extr, Other (Unsteady gait) Assessment And Plan - Plan 1. Left foot osteomyelitis. Leukocytosis. WBC improving --MRI foot without evidence of osteomyelitis --Foot Xray indicates Rarefaction and lytic change involving the second metatarsal head, concerning for ongoing osteomyelitis. Soft tissue swelling about the forefoot, with questionable subtle soft tissue gas at the level of the second metatarsal head. -- Status post I&D --wound culture group B strep -continue IV antibiotics, d/w Dr. Quezada today, plan for 6 weeks meropenem and doxy -ID team following, appreciate recs -Pending LTAC for 6 weeks of IV antibiotics, hyperbaric wound care, 2. New onset DM2 with hyperglycemia. Hypertriglyceridemia --BS better with insulin, continue current insulin. Not on any meds at home, new DM diagnosis this admit --Diabetic diet -Monitor sugars closely 3. Chronic pain syndrome. --Continue current pain medication regimen 4. Hypokalemia -Replaced. 5. GERD\rheumatoid arthritis --Continue home medications --Stop prednisone 6. CKD 3B. --Stable. --Will continue to monitor renal functions. --Avoid nephrotoxins 7. Dyslipidemia. 8. Hypertension --Stable. Continue home medications. 9. obesity. --consider weight loss, f/u with PCP 10. Anemia: Secondary to acute illness, monitor closely. DVT prophylaxis with heparin subQ Discharge Plan: LTAC Physician Review: Patient Assessed, Agree with Above Assessment and Plan Critical Care: No Time Spent Managing PTS Care (In Minutes): 33 <Lucy Hines - Last Filed: 08/14/24 07:47> Chart has been reviewed. Events of the last 24 hours have been noted. Case discussed with JUAN. I performed a substantial part of the MDM during this patient's care today. I personally made or approved the documented management plan and acknowledge its risk of complications. I agree with the findings and documentation provided in the JUAN's notes <Mele Thomas - Last Filed: 08/21/24 02:30>
--- NOTE | 2024-08-13 17:07 | PN ---
Subjective: The patient is lying in bed. No new acute event. at the bedside. Objective: Vital Signs: Reviewed. Lungs: Basal crackles. Heart: S1, S2. Regular. Abdomen: Soft, nontender. Bowel sounds present. Extremities: Trace edema. Laboratory Data: WBC 14.5, hemoglobin 11.9, platelets 292. Chemistry shows BUN of 26, creatinine 1. 1. Wound culture, Strep agalactiae group B. Assessment And Plan: 1. Left foot osteomyelitis of second toe and cellulitis and diabetic foot ulcer, status post surgical debridement. Continue antibiotic and wound care. Agree with long-term acute care transfer. Contin ue to monitor sugar levels. Continue current treatment. 2. Leukocytosis. 3. We will follow the patient closely. NF/MODL Voice ID: [id number] Report ID: [id number]
[2024-08-13] MEDS: MELATONIN 5 MG TABLET PO PRN (20:25)
[2024-08-14 05:32] LABS: Potassium 3.2 mEq/L (3.5-5.1)
--- NOTE | 2024-08-14 07:50 | P.PN ---
Date of Service: 08/13/24 Subjective PT to eval for DME needs, pain control as needed analgesia Review of Systems 10-point ROS is otherwise unremarkable Physical Examination - Vital Signs reviewed - Physical Exam General: Alert, In no apparent distress, Oriented x3, afebrile HEENT: Atraumatic, Neck: Supple, JVD not distended Respiratory: Clear to auscultation bilaterally, Cardiovascular: No edema, Normal pulses, Regular rate/rhythm, Normal S1 S2 Gastrointestinal: Normal bowel sounds, nondistended Musculoskeletal: Other (Left lower extremity dressing intact, positive pulses) Neurological: Normal speech, Normal strength at 5/5 x4 extr, Other (Unsteady gait) Assessment And Plan - Plan 1. Left foot osteomyelitis. Leukocytosis. WBC improving --MRI foot without evidence of osteomyelitis --Foot Xray indicates Rarefaction and lytic change involving the second metatarsal head, concerning for ongoing osteomyelitis. Soft tissue swelling about the forefoot, with questionable subtle soft tissue gas at the level of the second metatarsal head. -- Status post I&D --wound culture group B strep -continue IV antibiotics, d/w Dr. Quezada today, plan for 6 weeks meropenem and doxy -ID team following, appreciate recs -Pending LTAC for 6 weeks of IV antibiotics, hyperbaric wound care, -PT to eval for DME needs 2. New onset DM2 with hyperglycemia. Hypertriglyceridemia --BS better with insulin, continue current insulin. Not on any meds at home, new DM diagnosis this admit --Diabetic diet -Monitor sugars closely 3. Chronic pain syndrome. --Continue current pain medication regimen 4. Hypokalemia -Replaced. 5. GERD\rheumatoid arthritis --Continue home medications --Stop prednisone 6. CKD 3B. --Stable. --Will continue to monitor renal functions. --Avoid nephrotoxins 7. Dyslipidemia. 8. Hypertension --Stable. Continue home medications. 9. obesity. --consider weight loss, f/u with PCP 10. Anemia: Secondary to acute illness, monitor closely. DVT prophylaxis with heparin subQ Discharge Plan: LTAC Physician Review: Patient Assessed, Agree with Above Assessment and Plan Critical Care: No Time Spent Managing PTS Care (In Minutes): 25 <Lucy Hines - Last Filed: 08/14/24 07:50> Chart has been reviewed. Events of the last 24 hours have been noted. Case discussed with JUAN. I performed a substantial part of the MDM during this patient's care today. I personally made or approved the documented management plan and acknowledge its risk of complications. I agree with the findings and documentation provided in the JUAN's notes <Mele Thomas - Last Filed: 08/21/24 02:31>
--- NOTE | 2024-08-14 08:15 | P.DS ---
Admission Date: 08/04/24 Discharge Date: 08/14/24 Reason for Admission: Lefft foot wound Brief History of Present Illness: 74-year-old male with a past medical history significant for rheumatoid arthritis, chronic pain syndrome, hypertension, obesity, GERD who presents with complaint of wound to the left foot after being sent by his surgeon to come to the ER. Patient reported he noticed a wound under his foot 2 weeks ago which has become progressively worse. Patient reports some drainage from the wound. Patient followed up with a wound MD last week and had a follow-up appointment today. Patient also reports swelling and redness to left foot as well as pain to the foot . Patient rated pain as 6/10 in severity and described pain as aching in quality. Patient denies any other signs and symptoms. Symptoms are aggravated or relieved by nothing. Patient decided to present to the hospital as directed by his wound care doctor\Surgeon. - Physical Exam General: Alert, In no apparent distress, Oriented x3, Cooperative HEENT: Atraumatic, PERRLA, Mucous membr. moist/pink, EOMI, Sclerae nonicteric Neck: Supple, 2+ carotid pulse no bruit, No LAD, Without JVD or thyroid abnormality Respiratory: Clear to auscultation bilaterally, Normal air movement Cardiovascular: Regular rate/rhythm, Normal S1 S2, Edema Capillary refill: <2 Seconds Gastrointestinal: Normal bowel sounds, Soft and benign, Non-distended, No tenderness Musculoskeletal: No clubbing, No swelling, No tenderness Integumentary: No rashes, Erythema, left foot diabetic foot wound, dry dressing Neurological: Normal gait, Normal speech, Normal tone, Normal affect Lymphatics: No axilla or inguinal lymphadenopathy Hospital Course: 74-year-old male with a past medical history significant for rheumatoid arthritis, chronic pain syndrome, hypertension, obesity, GERD who presents with complaint of wound to the left foot after being sent by his surgeon to come to the ER. Patient reported he noticed a wound under his foot 2 weeks ago which has become progressively worse. Patient reports some drainage from the wound. Patient followed up with a wound MD last week and had a follow-up appointment today. Patient also reports swelling and redness to left foot as well as pain to the foot . Patient had noted left foot osteomyelitis, plan to discharge for LTAC for 6 weeks of antibiotic, and wound care Assessment Left foot osteomyelitis-plan to discharge for LTAC for 6 weeks of IV antibiotics, meropenem, doxycycline (08/06 Excisional debridement of necrotic infected diabetic ulcer [id number] Dr Mills) Leukocytosis improving-seen by infectious disease, infectious disease will follow him a LTAC in [place] New onset diabetes type 2 with hyperglycemia-sliding scale insulin, Accu-Cheks Chronic pain syndrome as needed analgesics, Hypokalemia trend electrolytes replace as needed while inpatient GERD resume home meds Rheumatoid arthritis, prednisone stopped, CKD 3B, trend kidney function Hypertension, hyperlipidemia, resume home meds PICC line placed, Culture left foot wound shows Streptococcus agalactiae b- being treated with doxycycline and meropenem. Patient will continue hyperbaric wound care at LTAC, PT and OT. Continue home medicines as previously prescribed GOAL: Clear understanding of disease process INSTRUCTIONS: Physician Discharge Instructions: -Discharge to LTAC facility for 6 weeks of IV antibiotics and wound care -Follow-up with surgeon after discharge home -Follow-up with PCP in 1 to 2 weeks -Please call Dr. Thomas at [phone] if any questions regarding hospital stay -Please call nursing station at [phone] if any nursing or medication questions -Return to the emergency room if symptoms worsen Diet: ADA, low sodium Activity: Fall precautions <Lucy Hines - Last Filed: 08/15/24 18:14> Admission Date: 08/04/24 Discharge Date: 08/14/24 Hospital Course: Chart has been reviewed. Events of the last 24 hours have been noted. Case discussed with JUAN. I performed a substantial part of the MDM during this patient's care today. I personally made or approved the documented management plan and acknowledge its risk of complications. I agree with the findings and documentation provided in the JUAN's notes <Mele Thomas - Last Filed: 08/21/24 02:31> Dis[facility]: [facility] Vital Signs/Physical Exam: Temp Pulse Resp BP Pulse Ox 97.4 F 66 18 120/68 95 08/14/24 04:00 08/14/24 04:00 08/14/24 04:00 08/14/24 04:00 08/14/24 04:00 Laboratory Data at Discharge: WBC 14.50 thou/uL (4.3-10.9) H 08/12/24 04:08 Hgb 11.9 g/dL (13.6-17.9) L 08/12/24 04:08 Hct 36.0 % (39.6-49.0) L 08/12/24 04:08 Plt Count 292 thou/uL (152-406) 08/12/24 04:08 PT 11.9 SECONDS (10.0-13.0) 08/04/24 09:55 INR 1.05 08/04/24 09:55 APTT 26.3 SECONDS (24.3-36.9) 08/04/24 09:55 Sodium 134 mEq/L (136-145) L 08/12/24 04:08 Potassium 3.2 mEq/L (3.5-5.1) L 08/14/24 04:46 BUN 26 mg/dL (7-18) H 08/12/24 04:08 Creatinine 1.16 mg/dL (0.70-1.30) 08/12/24 04:08 Glucose 146 mg/dL (74-106) H 08/12/24 04:08 Uric Acid < 0.2 mg/dL (3.5-7.2) L 08/05/24 04:01 Phosphorus 3.0 mg/dL (2.5-4.9) 08/04/24 09:55 Magnesium 2.0 mg/dL (1.6-2.4) 08/14/24 04:46 Total Bilirubin 1.0 mg/dL (0.2-1.0) 08/05/24 04:01 AST < 10 U/L (15-37) L 08/05/24 04:01 ALT < 14 U/L (16-61) L 08/05/24 04:01 Alkaline Phosphatase 108 U/L (45-117) D 08/05/24 04:01 Triglycerides 208 mg/dL (<150) H 08/04/24 Unknown Cholesterol 185 mg/dL (<200) 08/04/24 Unknown HDL Cholesterol 39 mg/dL (40-60) L 08/04/24 Unknown Cholesterol/HDL Ratio 4.74 08/04/24 Unknown <Lucy Hines - Last Filed: 08/15/24 18:14> Vital Signs/Physical Exam: Temp Pulse Resp BP Pulse Ox 98.7 F 80 16 127/69 94 08/14/24 12:00 08/14/24 12:00 08/14/24 12:00 08/14/24 12:00 08/14/24 12:00 Laboratory Data at Discharge: WBC 14.50 thou/uL (4.3-10.9) H 08/12/24 04:08 Hgb 11.9 g/dL (13.6-17.9) L 08/12/24 04:08 Hct 36.0 % (39.6-49.0) L 08/12/24 04:08 Plt Count 292 thou/uL (152-406) 08/12/24 04:08 PT 11.9 SECONDS (10.0-13.0) 08/04/24 09:55 INR 1.05 08/04/24 09:55 APTT 26.3 SECONDS (24.3-36.9) 08/04/24 09:55 Sodium 134 mEq/L (136-145) L 08/12/24 04:08 Potassium 3.2 mEq/L (3.5-5.1) L 08/14/24 04:46 BUN 26 mg/dL (7-18) H 08/12/24 04:08 Creatinine 1.16 mg/dL (0.70-1.30) 08/12/24 04:08 Glucose 146 mg/dL (74-106) H 08/12/24 04:08 Uric Acid < 0.2 mg/dL (3.5-7.2) L 08/05/24 04:01 Phosphorus 3.0 mg/dL (2.5-4.9) 08/04/24 09:55 Magnesium 2.0 mg/dL (1.6-2.4) 08/14/24 04:46 Total Bilirubin 1.0 mg/dL (0.2-1.0) 08/05/24 04:01 AST < 10 U/L (15-37) L 08/05/24 04:01 ALT < 14 U/L (16-61) L 08/05/24 04:01 Alkaline Phosphatase 108 U/L (45-117) D 08/05/24 04:01 Triglycerides 208 mg/dL (<150) H 08/04/24 Unknown Cholesterol 185 mg/dL (<200) 08/04/24 Unknown HDL Cholesterol 39 mg/dL (40-60) L 08/04/24 Unknown Cholesterol/HDL Ratio 4.74 08/04/24 Unknown <Mele Thomas - Last Filed: 08/21/24 02:31> Diet: ADA Activity: Fall precautions Time spent managing pt's care (in minutes): 45 <Lucy Hines - Last Filed: 08/15/24 18:14> <Mele Thomas - Last Filed: 08/21/24 02:31> Home Medications: Esomeprazole Magnesium [Nexium] 40 mg PO DAILY 01/19/15 Triamterene/Hctz [Maxzide 75*] 1 tab PO DAILY 01/19/15 Losartan Potassium [Cozaar*] 50 mg PO DAILY 05/31/19 Nifedipine Xl [Procardia XL*] 90 mg PO DAILY 05/31/19 predniSONE [Prednisone*] 10 mg PO DAILY 05/31/19 Aspirin [Aspirin EC 81 MG] 81 mg PO DAILY 12/31/19 Pegloticase [Krystexxa] 8 mg IV [facility] 08/05/24 Sarilumab [Kevzara] 200 mg SQ [facility] 08/05/24 Followup: Eden MONET,Heidy Ornelas DO [Primary Care Provider] - 1-2 Weeks Adonay Mills MD [ACTIVE - CAN ADMIT] -
[2024-08-14] MEDS: POTASSIUM CL SA 10 MEQ TAB PO ONE (09:51)
[2024-08-14 12:28] VITALS: BP 127/69; TEMP 98.7
--- NOTE | 2024-09-02 16:20 | OP ---
Date of Procedure: 09/02/2024 Surgeon: Adonay Mills MD Preoperative Diagnosis: Necrotic infected diabetic ulcer with osteomyelitis of the left foot. Postoperative Diagnosis: Necrotic infected diabetic ulcer with osteomyelitis of the left foot. Procedure Performed: Excisional debridement of necrotic tissue of the diabetic ulcer down to subcuta neous tissue and muscle about 12 x 3 x 2 cm with pulse lavage. Ebl: Less than 20 cc. Specimen: Culture. Findings: Through and through wound from plantar to dorsal foot necrotic tissue present and tendons exposed. Anesthesia: General plus local. Complications: None. Indication: This is a case of a male, who comes to us with cellulitis of the left foot. Has an ulce r on the plantar surface, but it is somehow associated with the dorsal cellulitis. I need to explore this and control the infection and do debridement. The benefits, alternatives, and risks fully expl ained, which include, but not limited to infection, bleeding, damage to adjacent structures, anesthes ia complication, recurrence of [place]. He also understands this may not relieve symptoms, he might need more than one surgical intervention. He understood, signed a consent. It is important to control th e diabetes and improve his circulation. Description Of Procedure: The patient was brought to the operating room, placed in supine position. Anesthesia was without complication. The foot was prepped and draped in a sterile fashion. A time -out was called. After that, I proceeded to start from the dorsum. We see there was a channel that connect through metatarsal regions into the dorsum of the foot. The side of the foot also was affect ed. We will remove that. There was some bone and tendon exposed. There is muscle that is also debr ided partially. We did pulse lavage in that area trying to get all the pus and necrotic tissue from that region. Hemostasis was obtained and the area was packed with wet-to-dry dressing. The patient tolerated the procedure well. Patient was sent to recovery in stable condition. HM/MODL Voice ID: [id number] Report ID: [id number]
== END 2024-08-14 16:25 | DRG 853 ==
LOC: ER 09:18 → ERHOLD 11:45 → 2ND 19:51
PROVIDERS: ADMIT Family Medicine; ATTEND Hospitalist
PROC: 02HV33Z Insertion of Infusion Device into Superior Vena Cava, Percutaneous Approach (ICD-10-PCS; 2024-08-04)
PROC: 0JBR0ZZ Excision of Left Foot Subcutaneous Tissue and Fascia, Open Approach (ICD-10-PCS; principal; 2024-08-06 07:30)
DX: A41.9 Sepsis, unspecified organism (principal); R65.21 Severe sepsis with septic shock; M86.172 Other acute osteomyelitis, left ankle and foot; L02.612 Cutaneous abscess of left foot; E87.20 Acidosis, unspecified; E11.52 Type 2 diabetes mellitus with diabetic peripheral angiopathy with gangrene; I12.9 Hypertensive chronic kidney disease with stage 1 through stage 4 chronic kidney disease, or unspecified chronic kidney disease; N18.32 Chronic kidney disease, stage 3b; E11.22 Type 2 diabetes mellitus with diabetic chronic kidney disease; E11.65 Type 2 diabetes mellitus with hyperglycemia; E11.40 Type 2 diabetes mellitus with diabetic neuropathy, unspecified; E11.69 Type 2 diabetes mellitus with other specified complication; E11.621 Type 2 diabetes mellitus with foot ulcer; L97.529 Non-pressure chronic ulcer of other part of left foot with unspecified severity; D63.1 Anemia in chronic kidney disease; M06.9 Rheumatoid arthritis, unspecified; E66.09 Other obesity due to excess calories; E87.6 Hypokalemia; E78.5 Hyperlipidemia, unspecified; E78.1 Pure hyperglyceridemia; G89.4 Chronic pain syndrome; K21.9 Gastro-esophageal reflux disease without esophagitis; B95.1 Streptococcus, group B, as the cause of diseases classified elsewhere; Z71.3 Dietary counseling and surveillance; Z79.82 Long term (current) use of aspirin; Z68.32 Body mass index [BMI] 32.0-32.9, adult; Z79.52 Long term (current) use of systemic steroids; Z87.891 Personal history of nicotine dependence; Z79.899 Other long term (current) drug therapy
CPT/HCPCS: 36415; 80048; 80053; 80061; 80202; 82947; 83036; 83605; 83735; 84100; 84132; 84550; 85025; 85610; 85730; 87040; 87070; 87075; 87077; 87186; 87205; 88304; 93005; 94010; 96365; 96366; 99285; J0692; J1644; J1720; J1815; J2003; J2185; J2250; J2405; J2704; J2919; J3010; J3370; J7030; J7040; J7050; J7512

== ENCOUNTER 2024-09-24 16:02 | Inpatient (IN) | payer OTHER, MEDICARE ==
--- OUTSIDE RECORDS SUMMARY | 2024-09-24 16:06 | XMS REPORT | Continuity of Care Document ---
Author Name Unknown Address [address] [facility] [address] [place] [address] [facility] Address [address] [facility] 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 Attending Clinician Unavail able Satya Admitting Clinician Unavailable Payers Payer Name Policy Type Policy Number Effective Date Expirati on Date Source MEDICARE PART A AND B [id number] 2017 00:00:00 [place] [id number] 2017 00:00:00 [facility]ALTH[facility] OPTIONS (MEDICARE SUPPLEMENT) [id number] 2021 00:00:00 MEDICARE PART A \T\ B [id number] 2017 00:00:00 [facility] MEDICARE SUPPLEMENT [id number] 2020 00:00:00 Problems Condition Name Condition Details Condition Category Status Onset Date Resolution Date Last Treatment Date Treating Clinician Comments Source Rheumatoid arthritis involving both hands with positive rheumatoid factor Rheumatoid arthritis involving both hands with positive rheumatoid factor Disease Active 2023-06 0-10 00:00: 00 [facility] 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 Disease Active 0 5-14 00:00: 00 [facility] Rheumatoid nodule of hand, left Rheumatoid nodule of hand, left Disease Active 0 3-08 00:00: 00 [facility] Rheumatoid nodule of hand, right Rheumatoid nodule of hand, right Disease Active 0 3-08 00:00: 00 [facility] Bilateral hand pain Bilateral hand pain Disease Active 0 3-08 00:00: 00 [facility] Tenosynovi tis of wrist flexor Tenosynovi tis of wrist flexor Disease Active 0 3-08 00:00: 00 [facility] 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 Disease Active 0 3-01 00:00: 00 [facility] Nontraumat ic complete tear of left rotator cuff Nontraumat ic complete tear of left rotator cuff Disease Active 0 3-01 00:00: 00 [facility] Tendinosis of left shoulder Tendinosis of left shoulder Disease Active 0 3-01 00:00: 00 [facility] Rheumatoid nodule of elbow, left Rheumatoid nodule of elbow, left Disease Active 0 3-01 00:00: 00 [facility] Rheumatoid nodule, right elbow Rheumatoid nodule, right elbow Disease Active 0 3-01 00:00: 00 [facility] Urgent desire to urinate Urgent Desire to Urinate Problem Active 0 3-22 00:00: 00 [facility] Recurrent urinary tract infection Recurrent Urinary Tract Infection Problem Active 0 5-02 00:00: 00 [facility]rology UNK UNK Active 03/05/2019 [facility] Diagnosis Active 2018-0 03-05 00:00: 00 2019-03-12 05:38:00 Trish Medeiros ENDOSCOPIC CARPAL TUNNEL RELEASE, LEFT H ENDOSCOPIC CARPAL TUNNEL RELEASE, LEFT H Active 03/05/2019 [facility] Diagnosis Active 2018-0 03-05 00:00: 00 2019-03-16 14:16:00 Trish Medeiros M25.559 - PAIN IN UNSPECIFIE D HIP M25.559 - PAIN IN UNSPECIFIE D HIP Active 01/14/2018 [facility] [place] Diagnosis Active 2017-0 808 00:01: 00 2018-01-27 09:41:00 Trish Medeiros Pain of left hand Pain of left hand [facility] carpal tunnel syndrome of left wrist Acute carpal tunnel syndrome of left wrist Problem Active [facility] History of Arthritis History of Arthritis Problem Resolve d [facility] History of Back pain History of Back pain Problem Resolve d [facility] History of Hemorrhoid History of Hemorrhoid Problem Resolve d [facility] History of High blood pressure History of High blood pressure Problem Resolve d [facility] History of Rheumatic fever History of Rheumatic fever Problem Resolve d [facility] History of hand surgery History of hand surgery Problem Active [facility] of Past Illness Condition Name Condition Details Condition Category Status Onset Date Resolution Date Last Treatment Date Treating Clinician Comments Source Pain in right hip Pain in right hip 02/03/2018 08/16/2018 SHAZIA [place] Problem 02-03 04:17: 57 2018-08-16 12:22:45 2018-08-16 12:22:45 Trish Medeiros Allergies, Adverse Reactions, Alerts Allergy Name Allergy Type Status Severity Reaction(s) Onset Date Inactive Date Treating Clinician Comments Source NO KNOWN ALLERGIE S Drug Class Active [facility] Social History Social Habit Start Date Stop Date Quantity Comments Source Sexual orientation 2023-10-22 08:26:09 Heterosexual (finding) [facility] Alcoholic beverage intake 2024-03-18 00:00:00 2024-03-18 00:00:00 Current drinker of alcohol (finding) [facility] History of Social function 2024-03-18 00:00:00 2024-03-18 00:00:00 [facility] Tobacco use and exposure 2023-08-08 00:00:00 2023-08-08 00:00:00 Smokeless tobacco non-user [facility] Alcohol Comment 2023-08-08 00:00:00 2023-08-08 00:00:00 Socially [facility] Social History 2019-03-12 11:01:02 2019-03-12 11:01:02 Brigitte Medeiros Sex assigned at 1950 00:00:00 1950 00:00:00 M [facility] Smoking Status Start Date Stop Date Source [facility] smoked tobacco [facility] Medic[facility] Ordered Medication Name Filled Medication Name Start Date Stop Date Current Medication? Ordering Clinician Indication Dosage Frequency Signature (SIG) Comments Components Source Pegloticase (KRYSTEXXA IV) 2023-06 0 10:02: 49 Yes Infuse into a venous catheter. [facility] allopurinol (Zyloprim) 300 MG tablet 12-09 00:00: 00 Yes 300mg QD Take 300 mg by mouth 1 (one) time each day. [facility] NexIUM [address] capsule 08-07 13:26: 21 Yes 1{capsu le} 1 capsule 1 (one) time each day at the same time. [facility] losartan (Cozaar) 50 MG tablet 08-07 13:26: 21 Yes losartan 50 mg tablet TAKE 1 TABLET BY MOUTH EVERY DAY [facility] NIFEdipine XL (Procardia XL) 90 MG 24 hr tablet 08-07 13:26: 21 Yes nifedipine ER 90 mg tablet,ext ended release 24 hr TAKE 1 TABLET BY MOUTH EVERY DAY [facility] triamterene -hydrochlor othiazide (Maxzide) 75-50 MG tablet 08-07 13:26: 21 Yes triamteren e 75 mg-hydroch lorothiazi de 50 mg tablet TAKE 1 TABLET BY MOUTH EVERY DAY [facility] propofol (ANES) 2018-06 14:11: 00 No Route: IV, Drug form: INJ, ONCE, Stop date: 03/12/19 9:11:00 CDT Trish Medeiros ondansetron ([facility]) 2018-06 0 14:11: 00 No Route: IV, Drug form: INJ, ONCE, Stop date: 03/12/19 9:11:00 CDT Trish Medeiros lidocaine (ANES) 2018-06 0 14:11: 00 No Route: IV, Drug form: INJ, ONCE, Stop date: 03/12/19 9:11:00 CDT Trish Medeiros Acetaminoph en 325 MG / Oxycodone Hydrochlori de 5 MG Oral Tablet [Percocet 5/325] 2018-06 0 14:07: 00 No Notes: Do not exceed 4gm/day of acetaminop hen. (Same as: Percocet-5 /325) Trish Medeiros Zofran 2018-06 14:07: 00 No Notes: (Same as: Carleen) MEDICATION WASTE Product Size: 4 mg Product Wasted: ___ mg Trish Medeiros ceFAZolin (ANES) 2018-06 14:06: 00 No Route: IV, Drug form: INJ, ONCE, Stop date: 03/12/19 9:06:00 CDT Trish Medeiros midazolam (ANES) 2018-06 14:01: 00 No Route: IV, Drug form: SOLN, ONCE, Stop date: 03/12/19 9:01:00 CDT Trish Medeiros acetaminoph en (ANES) 10 mg 2018-06 13:51: 00 No Route: IV, Drug form: INJ, Start date: 03/12/19 8:51:00 CDT, Stop date: 03/12/19 9:51:00 CDT Trish Medeiros Lactated Ringers Injection IV (ANES) 1000 mL 2018-06 13:25: 00 No Route: IV, Total Volume: 1,000, Start date: 03/12/19 8:25:00 CDT, Stop date: 03/12/19 9:25:00 CDT Trish Medeiros Calcium Chloride 0.0014 MEQ/ML / Potassium Chloride 0.004 MEQ/ML / Sodium Chloride 0.103 MEQ/ML / Sodium Lactate 0.028 MEQ/ML Injectable Solution 2018-06 11:02: 00 No 1,000 mL, Rate: 75 ml/hr, Infuse over: 13.3 hr, Route: IV, Dosing Weight 122.007 kg, Total Volume: 1,000, Start date: 03/12/19 6:02:00 CDT, Duration: 30 day, Stop date: 04/11/19 6:01:00 TOBACCO SIZER, 2.53, m2, 0 Trish Medeiros Promethazin e HCl - 25 MG Oral Tablet Promethazin e HCl - 25 MG Oral Tablet 2018-06 00:00: 00 Yes ALEXIS CHOWDHURY M.D. ONE TAB EVERY 6 HOURS PRN [facility] Acetaminoph en 325 MG / Hydrocodone Bitartrate 10 MG Oral Tablet [[place] 10/325] 2018-06 17:16: 00 Yes 1 tab, PO, Q6H, PRN Pain Score 1-3, 0 Refill(s) Trish Medeiros Prednisone 2018-06 17:15: 00 Yes 20 mg, PO, Daily, Quantity sufficient , 0 Refill(s) Trish Medeiros Actemra 20 mg/mL intravenous solution 2018-06 17:15: 00 Yes IV, q4wk, 0 Refill(s) Trish Medeiros Losartan Potassium 50 MG Oral Tablet [Cozaar] 2018-06 17:14: 00 Yes 50 mg = 1 tab, PO, Daily, 0 Refill(s) Trish Medeiros Hydrochloro thiazide 50 MG / Triamterene 75 MG Oral Tablet [Maxzide] 2018-06 17:14: 00 Yes 1 tab, PO, Daily, 0 Refill(s) Trish Medeiros Esomeprazol e 40 MG Enteric Coated Capsule [Nexium] 2018-06 17:14: 00 Yes 40 mg = 1 cap, PO, Daily, 0 Refill(s) Trish Medeiros 24 HR Nifedipine 90 MG Extended Release Tablet [Procardia] 2018-06 17:13: 00 Yes 90 mg = 1 tab, PO, Daily, 0 Refill(s) Trish Medeiros Besivance 0.6 % eye drops,suspe nsion INSTILL 1 DROP RIGHT EYE THREE TIMES DAILY Besivance 0.6 % eye drops,suspe nsion INSTILL 1 DROP RIGHT EYE THREE TIMES DAILY No Besivance 0.6 % eye drops,susp ension INSTILL 1 DROP RIGHT EYE THREE TIMES DAILY [facility] chlorhexidi ne gluconate 0.12 % mouthwash chlorhexidi ne gluconate 0.12 % mouthwash No chlorhexid ine gluconate 0.12 % mouthwash [facility] Covera-HS 240 mg tablet,exte nded release Take 1 tablet every 2 weeks by oral route. Covera-HS 240 mg tablet,exte nded release Take 1 tablet every 2 weeks by oral route. No 1 Q2W [facility] 240 mg tablet,ext ended release Take 1 tablet every 2 weeks by oral route. [facility] esomeprazol e magnesium 40 mg capsule,del ayed release esomeprazol e magnesium 40 mg capsule,del ayed release No esomeprazo le magnesium 40 mg capsule,de layed release [facility] meloxicam 7.5 mg tablet TAKE 1 TABLET BY MOUTH EVERY DAY meloxicam 7.5 mg tablet TAKE 1 TABLET BY MOUTH EVERY DAY No meloxicam 7.5 mg tablet TAKE 1 TABLET BY MOUTH EVERY DAY [facility] orphenadrin e citrate ER 100 mg tablet,exte nded release TAKE 1 TABLET BY MOUTH TWICE A DAY orphenadrin e citrate ER 100 mg tablet,exte nded release TAKE 1 TABLET BY MOUTH TWICE A DAY No orphenadri ne citrate ER 100 mg tablet,ext ended release TAKE 1 TABLET BY MOUTH TWICE A DAY [facility] prednisone 5 mg tablet prednisone 5 mg tablet No prednisone 5 mg tablet [facility] Uribel 118 mg-10 mg-40.8 mg-36 mg capsule Take 1 capsule 4 times a day by oral route. Take prn urinary pain Uribel 118 mg-10 mg-40.8 mg-36 mg capsule Take 1 capsule 4 times a day by oral route. Take prn urinary pain No 1capsul e(s) QID Uribel 118 mg-10 mg-40.8 mg-36 mg capsule Take 1 capsule 4 times a day by oral route. Take prn urinary pain [facility] Vital Signs Vital Name Observation Time Observation Value Comments S ource Body height 2023-08-15 19:10:00 185.4 cm [facility] Body weight 2023-08-15 19:10:00 110.678 kg [facility] BMI 2023-08-15 19:10:00 32.19 kg/m2 [facility] BMI (Body Mass Index) 2023-03-03 00:00:00 33.2 kg/m2 [facility] Height 2023-03-03 00:00:00 72 [in_i] [facility] Body Weight 2023-03-03 00:00:00 245 [lb_av] Jarret [facility] BP Diastolic 2022-08-27 00:00:00 90 mm[Hg] [facility] Height 2022-08-27 00:00:00 72 [in_i] [facility] BMI (Body Mass Index) 2022-08-27 00:00:00 37.7 kg/m2 [facility] BP Systolic 2022-08-27 00:00:00 160 mm[Hg] [place] Body Weight 2022-08-27 00:00:00 278 [lb_av] [facility] BP Diastolic 2022-02-18 00:00:00 90 mm[Hg] [facility] Height 2022-02-18 00:00:00 72 [in_i] [facility] BMI (Body Mass Index) 2022-02-18 00:00:00 37.7 kg/m2 [facility] BP Systolic 2022-02-18 00:00:00 141 mm[Hg] [facility] Body Weight 2022-02-18 00:00:00 278 [lb_av] [facility] BP Diastolic 2021-12-31 00:00:00 80 mm[Hg] [facility] Height 2021-12-31 00:00:00 72 [in_i] [facility] BMI (Body Mass Index) 2021-12-31 00:00:00 37.7 kg/m2 [facility] BP Systolic 2021-12-31 00:00:00 131 mm[Hg] [facility] Body Weight 2021-12-31 00:00:00 278 [lb_av] [facility] BP Diastolic 2021-11-12 00:00:00 81 mm[Hg] [facility] Height 2021-11-12 00:00:00 72 [in_i] [facility] BMI (Body Mass Index) 2021-11-12 00:00:00 37.7 kg/m2 [facility] BP Systolic 2021-11-12 00:00:00 125 mm[Hg] [facility] Body Weight 2021-11-12 00:00:00 278 [lb_av] [facility] Height 2021-10-08 00:00:00 72 [in_i] [facility] Height 2021-08-31 00:00:00 72 [in_i] [facility] BMI (Body Mass Index) 2021-08-31 00:00:00 37.7 kg/m2 [facility] Body Weight 2021-08-31 00:00:00 278 [lb_av] [facility] Respitory Rate 2019-03-12 14:45:00 [facility] Systolic (mm Hg) 2019-03-12 14:45:00 [facility] Diastolic (mm Hg) 2019-03-12 14:45:00 [facility] Respitory Rate 2019-03-12 14:30:00 [facility] Systolic (mm Hg) 2019-03-12 14:30:00 [facility] Diastolic (mm Hg) 2019-03-12 14:30:00 [facility] Respitory Rate 2019-03-12 14:15:00 [facility] Systolic (mm Hg) 2019-03-12 14:15:00 [facility] Diastolic (mm Hg) 2019-03-12 14:15:00 [facility] Height 2019-03-12 10:52:00 185.42 cm [facility] Weight 2019-03-12 10:52:00 [facility] BMI Calculated 2019-03-12 10:52:00 [facility] Procedures Procedure Date / Time Performed Performing Clinician Source US, kidney 2021-08-31 00:00:00 [facility] Post Op Promis 29 Survey 2019-03-19 00:00:00 [facility] Carpal Tunnel Surgery [facility] Hernia Repair [facility] Laminectomy [facility] History of Back Surgery [facility] Encounters Start Date/Time End Date/Time Encounter Type Admission Type Attending Clinicians Care Facility Care Department Encounter ID Source 2024-09-16 10:30:00 2024-09-16 10:30:00 Outpatient SKY HYATT [facility] [id number] [facility] 2024-03-18 10:30:00 2024-03-18 10:30:00 Office Visit Sky Hyatt [facility] [id number] [facility] 2023-12-25 09:30:00 2023-12-25 09:53:29 Office Visit Sky Hyatt [facility] 1..840.114 [id number] [facility] 2023-12-16 10:00:00 2023-12-16 10:00:00 Outpatient SKY HYATT [facility] [id number] [facility] 2023-10-21 10:00:00 2023-10-21 10:37:10 Office Visit Sky Hyatt [facility] 1..840.114 [id number] [facility] 2023-10-08 10:45:00 2023-10-08 10:45:00 Outpatient SKY HYATT [facility] [id number] [facility] 2023-09-30 00:00:00 2023-09-30 00:00:00 Fercho Chase MD: [address] [place] [address] , Ph. [facility] U[facility] [id number] [facility] 2023-09-02 00:00:00 2023-09-02 00:00:00 Fercho Chase MD: [address] [place] [address] , Ph. [facility] Urology [facility] [id number] [facility] 2023-08-15 13:30:00 2023-08-15 13:51:05 Office Visit Sky Hyatt [facility] ..840.114 [id number] [facility] 2023-08-15 00:00:00 2023-08-15 13:51:05 Outpatient [facility] [id number] [facility] 2023-08-08 13:00:00 2023-08-08 13:44:34 Office Visit Sky Hyatt [facility] [id number] [facility] 2023-08-08 00:00:00 2023-08-08 13:44:34 Outpatient [facility] [id number] [facility] 2023-08-05 00:00:00 2023-08-05 00:00:00 Fercho Chase MD: [address] [place] [address] , Ph. [facility] [place] - U [id number] [facility] 2023-08-05 00:00:00 2023-08-05 00:00:00 Fercho Chase MD: [place] [address] , Ph. [facility] PA - U [id number] [facility] 2023-07-08 00:00:00 2023-07-08 00:00:00 Fercho Chase MD: [address] [place] [address] , Ph. [facility] PA - U [id number] [facility] 2023-06-10 00:00:00 2023-06-10 00:00:00 Fercho Chase MD: [address] [place] [address] , Ph. [facility] PA - U [id number] [facility] 2023-05-06 00:00:00 2023-05-06 00:00:00 Fercho Chase MD: [address] [place] [address] , Ph. [facility] PA - [facility] [id number] [facility] 2023-04-08 00:00:00 2023-04-08 00:00:00 Fercho Chase MD: [address] [place] [address] , Ph. [facility] Urology PA - U [id number] [facility] 2023-03-18 00:00:00 2023-03-18 00:00:00 Fercho Chase MD: [address] [place] [address] , Ph. [facility] Urology MA - U [id number] [facility] 2023-03-03 00:00:00 2023-03-03 00:00:00 Fercho Chase MD: [place] [address] , Ph. [facility] PA - 200 [id number] [facility] 2023-02-11 00:00:00 2023-02-11 00:00:00 Fercho Chase MD: [address] [place] [address] , Ph. [facility] Urology MA - U [id number] [facility] 2023-01-14 00:00:00 2023-01-14 00:00:00 Fercho Chase MD: [place] [address] , Ph. [facility] Urology MA - U [id number] [facility] 2022-12-17 00:00:00 2022-12-17 00:00:00 Fercho Chase MD: [place] [address] , Ph. [facility] Urology MA - U [id number] [facility] 2022-11-19 00:00:00 2022-11-19 00:00:00 Fercho Chase MD: [address] [id number] , Ph. [facility] PA - [facility] [id number] [facility] 2022-10-22 00:00:00 2022-10-22 00:00:00 Fercho Chase MD: [address] [place] [address] , Ph. [facility] PA - [facility] [id number] [facility] 2022-09-24 00:00:00 2022-09-24 00:00:00 Fercho Chase MD: [address] , Ph. [facility] PA - [facility] [id number] [facility] 2022-08-27 00:00:00 2022-08-27 00:00:00 Fercho Chase MD: [address] [place] [id number] , Ph. [facility] Urology PA - 200 [id number] [facility] 2022-07-30 00:00:00 2022-07-30 00:00:00 David Sampson MD: [address] [place] [id number] , Ph. [facility] PA - U [id number] [facility] 2022-07-02 00:00:00 2022-07-02 00:00:00 David Sampson MD: [address] [place] [address] , [facility]. [facility] [id number] [facility] 2022-06-14 00:00:00 2022-06-14 00:00:00 Outpatient Mineo_M [facility] U [id number] [facility] 2022-06-14 00:00:00 2022-06-14 00:00:00 Outpatient Mineo_M [facility] U [id number] [facility] 2022-06-14 00:00:00 2022-06-14 00:00:00 Outpatient Mineo_M HMU HMU [id number] [facility] 2022-06-14 00:00:00 2022-06-14 00:00:00 Outpatient Mineo_M HMU HMU [id number] [facility] 2022-06-14 00:00:00 2022-06-14 00:00:00 Outpatient Mineo_M HMU HMU [id number] [facility] 2022-06-14 00:00:00 2022-06-14 00:00:00 Outpatient Mineo_M HMU HMU [id number] [facility] 2022-06-14 00:00:00 2022-06-14 00:00:00 Outpatient Mineo_M HMU HMU [id number] [facility] 2022-06-14 00:00:00 2022-06-14 00:00:00 Outpatient Mineo_M [facility]U HMU [id number] [facility] 2022-06-14 00:00:00 2022-06-14 00:00:00 Outpatient Mineo_M [facility]U HMU [id number] [facility] 2022-06-14 00:00:00 2022-06-14 00:00:00 Outpatient Mineo_M [facility] HMU [id number] [facility] 2022-06-14 00:00:00 2022-06-14 00:00:00 Outpatient Mineo_M HMU HMU [id number] [facility] 2022-06-14 00:00:00 2022-06-14 00:00:00 Outpatient Mineo_M [facility] HMU [id number] [facility] 2022-06-14 00:00:00 2022-06-14 00:00:00 Outpatient Mineo_M HMU HMU [id number] [facility] 2022-06-14 00:00:2022-06-14 00:00:00 Outpatient Mineo_M [facility]U HMU [id number] [facility] 2022-06-14 00:00:00 2022-06-14 00:00:00 Outpatient Mineo_M HMU HMU [id number] [facility] 2022-06-14 00:00:00 2022-06-14 00:00:00 Outpatient Mineo_M HMU HMU [id number] [facility] 2022-06-14 00:00:00 2022-06-14 00:00:00 Outpatient Mineo_M HMU HMU [id number] [facility] 2022-06-14 00:00:00 2022-06-14 00:00:00 Outpatient Mineo_M HMU HMU [id number] [facility] 2022-06-14 00:00:00 2022-06-14 00:00:00 Outpatient Mineo_M HMU HMU [id number] [facility] 2022-06-14 00:00:00 2022-06-14 00:00:00 Outpatient Mineo_M HMU HMU [id number] [facility] 2022-06-14 00:00:00 2022-06-14 00:00:00 Outpatient Mineo_M HMU HMU [id number] [facility] 2022-06-14 00:00:00 2022-06-14 00:00:00 Outpatient Mineo_M HMU HMU [id number] [facility] 2022-06-14 00:00:00 2022-06-14 00:00:00 Outpatient Mineo_M [facility]U HMU [id number] [facility] 2022-06-14 00:00:00 2022-06-14 00:00:00 Outpatient Mineo_M HMU HMU [id number] [facility] 2022-06-14 00:00:00 2022-06-14 00:00:00 Outpatient Mineo_M HMU HMU [id number] [facility] 2022-06-14 00:00:00 2022-06-14 00:00:00 Outpatient Mineo_M HM[facility] HMU [id number] [facility] 2022-[facility]14 00:00:00 2022-06-14 00:00:00 Outpatient Mineo_M [facility] HMU [id number] [facility] 2022-06-14 00:00:00 2022-06-14 00:00:00 Outpatient Mineo_M [facility] HMU [id number] [facility] 2022-06-04 00:00:00 2022-06-04 00:00:00 Outpatient Mineo_M HMU HMU [id number] [facility] 2022-06-04 00:00:00 2022-06-04 00:00:00 David Sampson MD: [address] [place] [address] , Ph. U [facility] Urology PA - HMU [id number] [facility] 2022-05-29 00:00:00 2022-05-29 00:00:00 Outpatient Mineo_M HMU HMU [id number] [facility] 2022-05-23 00:00:00 2022-05-23 00:00:00 Outpatient Mineo_M [facility] HMU [id number] [facility] 2022-05-06 00:00:00 2022-05-06 00:00:00 Outpatient Mineo_M HMU HMU [id number] [facility] 2022-05-06 00:00:00 2022-05-06 00:00:00 David Sampson MD: [address] [place] [address] , Ph. U [facility] Urology PA - HMU [id number] [facility] Urology 2022-04-11 00:00:00 2022-04-11 00:00:00 Outpatient Mineo_M HMU HMU [id number] [facility] Urology 2022-04-08 00:00:00 2022-04-08 00:00:00 Outpatient Mineo_M HMU U [id number] [facility] 2022-04-08 00:00:00 2022-04-08 00:00:00 David Sampson MD: [address] [place] [address] , [facility]. [facility] HMU [id number] [facility] 2022-03-22 00:00:00 2022-03-22 00:00:00 Outpatient Mineo_M HMU U [id number] [facility] 2022-03-13 00:00:00 2022-03-13 00:00:00 Outpatient Mineo_M HMU U [id number] [facility] Urology 2022-03-11 00:00:00 2022-03-11 00:00:00 Outpatient Mineo_M HMU U [id number] [facility] Urology 2022-03-11 00:00:00 2022-03-11 00:00:00 David Sampson MD: [address] [place] [address] , Ph. [facility] - HMU [id number] [facility] Urolog 2022-02-18 00:00:00 2022-02-18 00:00:00 Outpatient Mineo_M HMU U [id number] [facility]rology 2022-02-18 00:00:00 2022-02-18 00:00:00 Outpatient Fercho Chase U U [id number] 2022-02-18 00:00:00 2022-02-18 00:00:00 Fercho Chase MD: [address] [place] [address] , Ph. [facility] - 200 [id number] [facility]rolog 2022-02-14 00:00:00 2022-02-14 00:00:00 Outpatient Mineo_M HMU U [id number] [facility]rolog 2022-02-13 00:00:00 2022-02-13 00:00:00 Outpatient Mineo_M HMU U [id number] [facility]rolog 2022-02-13 00:00:00 2022-02-13 00:00:00 Outpatient David Sampson [facility] [id number] 2022-02-13 00:00:00 2022-02-13 00:00:00 David Sampson MD: [address] [place] [address] , Ph. [facility] Urology PA - U [id number] [facility] 2022-02-07 00:00:00 2022-02-07 00:00:00 Outpatient Mineo_M HMU U [id number] [facility]rolog 2022-02-04 00:00:00 2022-02-04 00:00:00 Outpatient Mineo_M HMU U [id number] [facility] 2022-02-04 00:00:00 2022-02-04 00:00:00 Fercho Chase MD: [address] [place] [address] , Ph. [facility] Urology PA - U [id number] [facility]rolog 2022-02-04 00:00:00 2022-02-04 00:00:00 [facility] [id number] 2022-01-22 00:00:00 2022-01-22 00:00:00 Outpatient Mineo_M HMU U [id number] [facility] 2022-01-21 00:00:00 2022-01-21 00:00:00 Outpatient Mineo_M HMU U [id number] [facility]rolog 2022-01-21 00:00:00 2022-01-21 00:00:00 Fercho Chase MD: [address] [place] [address] , Ph. [facility] - HMU [id number] [facility] 2022-01-21 00:00:00 2022-01-21 00:00:00 Outpatient Fercho Chase U U [id number] 2022-01-14 00:00:00 2022-01-14 00:00:00 Outpatient Mineo_M HMU U [id number] [facility] 2022-01-14 00:00:00 2022-01-14 00:00:00 Fercho Chase MD: [address] [place] [address] , Ph. [facility] Urology PA - HMU [id number] [facility] 2022-01-14 00:00:00 2022-01-14 00:00:00 Outpatient Fercho Chase U U [id number] 2022-01-10 00:00:00 2022-01-10 00:00:00 Outpatient Mineo_M HMU U [id number] [facility] 2022-01-07 00:00:00 2022-01-07 00:00:00 Outpatient Mineo_M HMU HMU [id number] [facility] 2022-01-07 00:00:00 2022-01-07 00:00:00 David Sampson MD: [address] [place] [address] , Ph. U [facility] Urology PA - U [id number] [facility]rology 2022-01-07 00:00:00 2022-01-07 00:00:00 Outpatient David Sampson U HMU [id number] 2022-01-01 04:40:00 2022-01-01 04:40:00 Outpatient Mineo_M HMU HMU [id number] [facility]rology 2021-12-31 02:23:00 2021-12-31 02:23:00 Outpatient Mineo_M HMU HMU [id number] [facility] 2021-12-31 00:00:00 2021-12-31 00:00:00 David Sampson MD: [address] [place] [address] , Ph. U [facility] Urology PA - HMU [id number] [facility] 2021-12-31 00:00:00 2021-12-31 00:00:00 Outpatient Fercho Chase U U [id number] 2021-12-31 00:00:00 2021-12-31 00:00:00 Outpatient David Sampson U HMU [id number] 2021-12-27 04:22:00 2021-12-27 04:22:00 Outpatient Mineo_M HMU HMU [id number] [facility] 2021-12-24 11:25:00 2021-12-24 11:25:00 Outpatient Mineo_M HMU HMU [id number] [facility] 2021-12-24 00:00:00 2021-12-24 00:00:00 Daivd Sampson MD: [address] [place] [address] , Ph. U [place] [facility] PA - HMU [id number] [facility] 2021-12-24 00:00:00 2021-12-24 00:00:00 Outpatient David Sampson HMU HMU [id number] 2021-12-19 09:36:00 2021-12-19 09:36:00 Outpatient Mineo_M HMU HMU [id number] [facility] 2021-12-17 11:55:00 2021-12-17 11:55:00 Outpatient Mineo_M HMU HMU [id number] [facility] 2021-12-17 00:00:00 2021-12-17 00:00:00 Fercho Chase MD: [address] [place] [address] , Ph. U [facility] Urology PA - HMU [id number] [facility] 2021-12-17 00:00:00 2021-12-17 00:00:00 Outpatient Rena Fercho Carmona U U [id number] 2021-12-11 12:19:00 2021-12-11 12:19:00 Outpatient Mineo_M HMU HMU [id number] [facility] 2021-12-11 00:00:00 2021-12-11 00:00:00 David Sampson MD: [address] [place] [address] , Ph. U [facility] Urology PA - HMU [id number] [facility] 2021-12-11 00:00:00 2021-12-11 00:00:00 Outpatient Camilla Davidroderick Cabrales HMU HMU [id number] 2021-12-03 11:30:00 2021-12-03 11:30:00 Outpatient Mineo_M HMU HMU [id number] [facility] 2021-12-03 00:00:00 2021-12-03 00:00:00 David Sampson MD: [address] [place] [address] , Ph. U [facility] Urolog PA - HMU [id number] [facility] 2021-12-03 00:00:00 2021-12-03 00:00:00 Outpatient David Sampson HMU HMU [id number] 2021-11-26 10:25:00 2021-11-26 10:25:00 Outpatient Mineo_M HMU HMU [id number] [facility] 2021-11-20 11:39:00 2021-11-20 11:39:00 Outpatient Mineo_M HMU HMU [id number] [facility] 2021-11-19 11:16:00 2021-11-19 11:16:00 Outpatient Mineo_M HMU HMU [id number] [facility] 2021-11-19 00:00:00 2021-11-19 00:00:00 David Sampson MD: [address] [place] [address] , Ph. U [facility] Urology PA - HMU [id number] [facility] 2021-11-19 00:00:00 2021-11-19 00:00:00 Outpatient David Sampson U U [id number] 03:43:00 2021-11-16 03:43:00 Outpatient Mineo_M HMU HMU [id number] [facility] 2021-11-15 08:56:00 2021-11-15 08:56:00 Outpatient Mineo_M HMU HMU [id number] [facility] 2021-11-12 03:01:00 2021-11-12 03:01:00 Outpatient Mineo_M HMU U [id number] [facility] 2021-11-12 00:00:00 2021-11-12 00:00:00 David Sampson MD: [address] [place] [address] , Ph. U [facility] Urolog PA - U [id number] [facility] 2021-11-12 00:00:00 2021-11-12 00:00:00 Outpatient David Sampson U U [id number] 2021-11-12 00:00:00 2021-11-12 00:00:00 Outpatient Fercho Chase U U [id number] 2021-10-22 09:40:00 2021-10-22 09:40:00 Outpatient Mineo_M HMU U [id number] [facility] 2021-10-10 09:53:00 2021-10-10 09:53:00 Outpatient Mineo_M HMU U [id number] [facility] 2021-10-08 04:27:00 2021-10-08 04:27:00 Outpatient Mineo_M HMU U [id number] [facility] 2021-10-08 00:00:00 2021-10-08 00:00:00 Fercho Chase MD: [address] [place] [address] , Ph. U [facility] Urolog PA - [id number] [facility] 2021-10-08 00:00:00 2021-10-08 00:00:00 [facility] [id number] 2021-10-04 09:04:00 2021-10-04 09:04:00 Outpatient Mineo_M HMU U [id number] [facility] 2021-09-20 02:30:00 2021-09-20 02:30:00 Outpatient Mineo_M HMU HMU [id number] [facility] 2021-09-20 02:30:00 2021-09-20 02:30:00 Outpatient Mineo_M HMU HMU [id number] [facility] 2021-09-20 00:00:00 2021-09-20 00:00:00 Outpatient Fercho Chase U U [id number] 2021-09-20 00:00:00 2021-09-20 00:00:00 Fercho Chase MD: [address], [place] [address] , Ph. [facility] [id number] [facility] 2021-09-03 02:41:00 2021-09-03 02:41:00 Outpatient Mineo_M HMU [facility] [id number] [facility] 2021-08-31 03:24:00 2021-08-31 03:24:00 Outpatient Mineo_M HMU [facility] [id number] [facility] 2021-08-31 00:00:00 2021-08-31 00:00:00 Fercho Chase MD: [address], [place] [address] , Ph. [facility] Urolog PA - 200 [id number] [facility] 2021-08-31 00:00:00 2021-08-31 00:00:00 Outpatient Lexycandelaria Fer[facility] [id number] 2021-08-31 00:00:00 2021-08-31 00:00:00 Outpatient Fercho Chase [facility] [id number] 2021-08-08 02:27:00 2021-08-08 02:27:00 Outpatient Satya [facility] [id number] [facility] 2020-07-13 15:10:00 2020-07-13 15:10:00 Outpatient Edwina NANCY HARTMAN [facility] [id number] [facility] 2020-07-13 15:10:00 2020-07-13 15:10:00 Outpatient Edwina MINNIE NANCY [facility] [id number] [facility] 2020-06-15 16:30:00 2020-06-15 16:30:00 Outpatient Edwina MINNIENANCY [facility] [id number] [facility] 2019-03-18 09:45:00 2019-03-18 09:45:00 Appointmen t; ALEXIS CHOWDHURY M.D. CRUMBIE, DAVID, M.D. [facility] [id number] [place] [facility] 2019-03-15 09:30:00 2019-03-15 09:30:00 Appointmen t; ALEXIS CHOWDHURY M.D. CRUMBIE, DAVID, M.D. [facility] Orthopedics [facility] [id number] [place] [facility] 2019-03-12 10:38:00 2019-03-12 15:03:00 Day Surgery nullFlavo r [facility] [id number] Trish suazo [place] 2019-03-12 13:00:00 2019-03-12 13:00:00 Appointmen t; ALEXIS CHOWDHURY M.D. CRUMBIE, DAVID, M.D. [id number] [place] [facility] 2019-03-12 05:38:00 2019-03-12 05:38:00 Outpatient MHBL MHBL [id number] [id number] 2019-02-25 20:15:00 2019-02-25 20:15:00 Ambulatory Pre-Reg nullFlavo r [facility] [id number] Trish Medeiros 2019-02-22 10:30:00 2019-02-22 10:30:00 ALEXIS Cooney M.D. ALEXIS CHOWDHURY M.D. [facility] [id number] [place] [facility] 2018-01-27 14:31:00 2018-01-28 04:59:00 Outpt Diag Services nullFlavo r [facility] [id number] Trish Medeiros Results Test Description Test Time Test Comments Results Result Co mments Source [facility] UrologyUrinalysis macro (dipstick) panel - [id number] 10:05:00* Test Item Value Reference Range Interpretation Comme nts leukocytes (test code = leukocytes) negative neg urobilinogen (test code = urobilinogen) 0.2 E.U./dL sm amt (.5-1mg/dL) protein (test code = protein) trace See_Comment A [Automated [employer] ge] The system which generated this result transmitted reference range: <=150 mg/d. The reference range was not used to interpret this result as normal/abnormal. pH (test code = pH) 6.0 4.5-8 blood (test code = blood) negative See_Comment [Automated [employer] ge] The system which generated this result transmitted reference range: <=3 RBC. The reference range was not used to interpret this result as normal/abnormal. specific gravity (test code = specific gravity) 1.020 1.005-1.025 ketone (test code = ketone) negative none bilirubin (test code = bilirubin) negative neg glucose (test code = glucose) negative See_Comment [Automated [employer] ge] The system which generated this result transmitted reference range: <=130 mg/d. The reference range was not used to interpret this result as normal/abnormal. color (test code = color) yellow yellow clarity (test code = clarity) clear clear or cloudy nitrite (test code = nitrite) negative neg [facility] UrologyUrinalysis macro (dipstick) panel - [id number] 11:01:00* Test Item Value Reference Range Interpretation Comme nts leukocytes (test code = leukocytes) negative neg urobilinogen (test code = urobilinogen) 0.2 E.U./dL sm amt (.5-1mg/dL) protein (test code = protein) negative See_Comment [Automated messa ge] The system which generated this result transmitted reference range: <=150 mg/d. The reference range was not used to interpret this result as normal/abnormal. pH (test code = pH) 7.0 4.5-8 blood (test code = blood) negative See_Comment [Automated messa ge] The system which generated this result transmitted reference range: <=3 RBC. The reference range was not used to interpret this result as normal/abnormal. specific gravity (test code = specific gravity) 1.015 1.005-1.025 ketone (test code = ketone) negative none bilirubin (test code = bilirubin) negative neg glucose (test code = glucose) negative See_Comment [Automated messa ge] The system which generated this result transmitted reference range: <=130 mg/d. The reference range was not used to interpret this result as normal/abnormal. color (test code = color) yellow yellow clarity (test code = clarity) clear clear or cloudy nitrite (test code = nitrite) negative neg [facility] Urologymeasurement of post-voiding residual urine and/or bladder capacity (PROC)2022-08-27 10:24:50* Test Item Value Reference Range Interpretation Comme [facility] CC (test code = CC) 83 CC [facility] UrologyPSA, serum or [id number] 00:00:00* Test Item Value Reference Range Interpretation Comme [facility] PSA testosterone (test code = PSA testosterone) PSA_1 (test code = PSA_1) 0.22 [facility] Urologymeasurement of post-voiding residual urine and/or bladder capacity (PROC)2021-12-31 12:01:00* Test Item Value Reference Range Interpretation Comme [facility] CC (test code = CC) 116.5 [facility] UrologyUrinalysis macro (dipstick) panel - [id number] 11:15:00* Test Item Value Reference Range Interpretation Comme [facility] leukocytes (test code = leukocytes) negative neg urobilinogen (test code = urobilinogen) 0.2 E.U./dL sm amt (.5-1mg/dL) protein (test code = protein) negative See_Comment [Automated messa ge] The system which generated this result transmitted reference range: <=150 mg/d. The reference range was not used to interpret this result as normal/abnormal. pH (test code = pH) 6.0 4.5-8 blood (test code = blood) negative See_Comment [Automated [employer] ge] The system which generated this result transmitted reference range: <=3 RBC. The reference range was not used to interpret this result as normal/abnormal. specific gravity (test code = specific gravity) 1.020 1.005-1.025 ketone (test code = ketone) negative none bilirubin (test code = bilirubin) negative neg glucose (test code = glucose) negative See_Comment [Automated [employer]] The system which generated this result transmitted reference range: <=130 mg/d. The reference range was not used to interpret this result as normal/abnormal. color (test code = color) yellow yellow clarity (test code = clarity) clear clear or cloudy nitrite (test code = nitrite) negative neg [facility] UrologyCytology report of Specimen Cyto [id number] 00:00:00 Non-general maintenance helper [facility] Urolog[facility]asurement of post-voiding residual urine and/or bladder capacity (PROC)2021-08-31 11:21:00* Test Item Value Reference Range Interpretation Comme nts CC (test code = CC) 97 [facility] Urology[U] XRAY HAND MIN 3 VWS LEFT [id number] 11:03:00Images acquired, not reported on this accession number.[employer] [facility]
[2024-09-24 17:16] LABS: Absolute Basophils 0.2 K/uL (0-0.5); Absolute Eosinophils 2.6 K/uL (0-0.5); Absolute Lymphocytes (CBC) 3.5 K/uL (0.7-4.9); Absolute Neutrophil 8.4 K/uL (1.8-8.0); Eosinophils % 16.7 % (0-4.4); Hematocrit 37.6 % (39.6-49.0); Hemoglobin 12.9 g/dL (13.6-17.9); Lymphocytes % 22.6 % (15.3-44.8); MCH 30.1 pg (27.0-35.0); MCHC 34.2 g/dL (32.0-36.0); MCV 88.1 fL (80-100); MPV 8.6 fL (7.6-11.3); Monocytes % 6.1 % (3.3-12.3); Neutrophils % 53.6 % (41.7-73.7); Nucleated Red Blood Cells % 0.1 % (0-0); Platelets 231 thou/uL (152-406); RBC Red Blood Cell Count 4.27 M/uL (4.33-5.43); Red Cell Distribution Width 16.1 % (12.1-15.2)
[2024-09-24 17:24] LABS: PTT, Activated Partial Thromb 30.6 SECONDS (27.2-37.4); Protime INR 1.15
--- NOTE | 2024-09-24 17:26 | RAD REPORT ---
Exam:Foot Left 3 View CLINICAL HISTORY: Left foot pain FINDINGS: Severe hallux valgus deformity with marked medial subluxation of the first proximal phalanx. Lateral subluxations involves second, third and fourth proximal phalanges. The bones are markedly osteoporotic. No obvious bony destructive lesion visualized. No fracture seen.
[2024-09-24 17:35] LABS: Albumin 3.2 g/dL (3.4-5.0); Albumin/Globulin Ratio 0.9 (1.1-1.8); Alkaline Phosphatase 101 U/L (45-117); Anion Gap 11.7 mEq/L (5.0-15.0); BUN Blood Urea Nitrogen 46 mg/dL (7-18); Bicarbonate 23 mEq/L (21-32); Bilirubin Total 0.3 mg/dL (0.2-1.0); Globulin 3.5 g/dL (2.3-3.5); Glomerular Filtration Rate 46 ml/min (=/>90); Glucose Level 114 mg/dL (74-106); Potassium 3.7 mEq/L (3.5-5.1); Protein, Total 6.7 g/dL (6.4-8.2); Sodium Level 138 mEq/L (136-145)
[2024-09-24 17:36] LABS: ALT/SGPT < 14 U/L (16-61); AST/SGOT < 10 U/L (15-37)
--- NOTE | 2024-09-24 18:40 | ER ---
Nurse's Notes [facility] Name: Juan Nam Age: 74 yrs Sex: Male : 1950 Arrival Date: 09/24/2024 Time: 16:02 Bed 20 Private MD: Diagnosis: Unspecified open wound, left foot, initial encounter Presentation: 09/24 16:15 Chief complaint:. Chief complaint: Patient states: Sent here for abnormal lab results. ld1 Seeing wound care with Dr. Mills for wound to left foot. Coronavirus screen: At this time, the client does not indicate any symptoms associated with coronavirus-19. Ebola Screen: No symptoms or risks identified at this time. Initial Sepsis Screen: Does the patient meet any 2 criteria? No. Patient's initial sepsis screen is negative. Does the patient have a suspected source of infection? No. Patient's initial sepsis screen is negative. Risk Assessment: Do you want to hurt yourself or someone else? Patient reports no desire to harm self or others. Onset of symptoms was September 24, 2024. 16:15 Method Of Arrival: Ambulatory ld1 16:15 Acuity: CESAR 3 ld1 Triage Assessment: 16:17 General: Appears in no apparent distress. comfortable, Behavior is calm, cooperative, ld1 appropriate for age. Pain: Denies pain. EENT: No signs and/or symptoms were reported regarding the EENT system. Neuro: Level of Consciousness is awake, alert, obeys commands, Oriented to person, place, time, situation. Cardiovascular: Capillary refill < 3 seconds Patient's skin is warm and dry. Respiratory: Airway is patent Respiratory effort is even, unlabored. GI: Abdomen is round non-distended. : No signs and/or symptoms were reported regarding the genitourinary system. Derm: No signs and/or symptoms reported regarding the dermatologic system. Musculoskeletal: No signs and/or symptoms reported regarding the musculoskeletal system. Historical: - Allergies: 16:17 No Known Allergies; ld1 - PMHx: 16:17 Chronic pain; Hypertension; Rheumatoid Arthritis; ld1 - Immunization history:: Adult Immunizations up to date. - Infectious Disease History:: Denies. - Social history:: Smoking status: Patient denies any tobacco usage or history of. Screenin:30 [facility] ED Fall Risk Assessment (Adult) History of falling in the last 3 months, db including since admission No falls in past 3 months (0 pts) Confusion or Disorientation No (0 pts) Intoxicated or Sedated No (0 pts) Impaired Gait Yes (1 pt) Mobility Assist Device Used Yes (1 pt) Altered Elimination No (0 pt) Score/Fall Risk Level 0 - 2 = Low Risk Oriented to surroundings, Maintained a safe environment. Abuse screen: Denies threats or abuse. Denies injuries from another. Nutritional screening: No deficits noted. Tuberculosis screening: No symptoms or risk factors identified. Assessment: 16:30 Reassessment: Patient appears in no apparent distress at this time. Patient and/or db family updated on plan of care and expected duration. Pain level reassessed. Patient is alert, oriented x 3, equal unlabored respirations, skin warm/dry/pink. General: Appears in no apparent distress. comfortable, Behavior is calm, cooperative. Pain: Complains of pain in left foot. Neuro: Level of Consciousness is awake, alert, obeys commands, Oriented to person, place, time, situation. Derm: Wound noted left foot. 19:37 General: Appears in no apparent distress. comfortable, Behavior is calm, cooperative. al5 Pain: Denies pain. Neuro: Level of Consciousness is awake, alert, obeys commands, Oriented to person, place, time, situation. Cardiovascular: Capillary refill < 3 seconds Patient's skin is warm and dry. Rhythm is sinus rhythm. Respiratory: Airway is patent Respiratory effort is even, unlabored, Respiratory pattern is regular, symmetrical. GI: No signs and/or symptoms were reported involving the gastrointestinal system. : No signs and/or symptoms were reported regarding the genitourinary system. EENT: No signs and/or symptoms were reported regarding the EENT system. Derm: Wound noted ball of left foot Wound is no redness noted to the area. Musculoskeletal: No signs and/or symptoms reported regarding the musculoskeletal system. 22:05 Reassessment: Patient appears in no apparent distress at this time. No changes from al5 previously documented assessment. Patient and/or family updated on plan of care and expected duration. Pain level reassessed. Patient is alert, oriented x 3, equal unlabored respirations, skin warm/dry/pink. Vital Signs: 16:15 BP 144 / 74; Pulse 85; Resp 18; Temp 97.1(TE); Pulse Ox 100% on R/A; Weight 111.13 kg; ld1 Height 6 ft. 1 in. ; Pain 0/10; 16:30 BP 143 / 80; Pulse 74; Resp 18; Pulse Ox 97% on R/A; db 17:00 BP 130 / 82; Pulse 79; Resp 16; Pulse Ox 99% on R/A; db 18:30 BP 134 / 81; Pulse 71; Resp 16; Pulse Ox 99% on R/A; db 19:00 BP 134 / 75; Pulse 75; Resp 17; Pulse Ox 99% on R/A; db 19:30 BP 149 / 80; Pulse 79; Resp 18; Pulse Ox 97% ; al5 22:04 BP 136 / 71; Pulse 73; Resp 18; Pulse Ox 99% ; al5 16:15 Body Mass Index 32.32 (111.13 kg, 185.42 cm) ld1 16:15 Pain Scale: Adult ld1 ED Course: 16:04 Patient arrived in ED. im 16:08 Regino Ramos PA is PHCP. cp 16:08 Yunior Rodriguez MD is Attending Physician. cp 16:12 Alisha Fair, DOMINIC is Primary Nurse. db 16:17 Triage completed. ld1 16:17 Arm band placed on right wrist. ld1 16:30 Patient has correct armband on for positive identification. Bed in low position. Call db light in reach. Side rails up X2. Client placed on continuous cardiac and pulse oximetry monitoring. NIBP monitoring applied. prep manager on. Pulse ox on. NIBP on. Warm blanket given. Pillow given. 17:04 Accessed midline Clean \T\ dry. Dressing intact. Good blood return. db 17:14 XRAY Foot LEFT 3 View In Process Unspecified. EDMS 17:14 Second set of blood cultures drawn by me. Inserted straight stick. db 18:38 Jakob Marcum MD is Hospitalizing Provider. cp 19:37 Grace Holt, DOMINIC is Primary Nurse. al5 19:39 Provided Education on: need for admission. al5 19:39 No provider procedures requiring assistance completed. al5 22:04 Patient admitted, IV remains in place. al5 Administered Medications: 18:52 Drug: vancoMYCIN IVPB 1.5 grams IVPB at calculated rate once Route: IVPB; Rate: db calculated rate; Site: right upper arm; 21:20 Follow up: Response: No adverse reaction; IV Status: Completed infusion; IV Intake: al5 500ml Medication: 16:30 VIS not applicable for this client. db Intake: 21:20 IV: 500ml; Total: 500ml. al5 Outcome: 18:39 Decision to Hospitalize by Provider. cp 22:04 Admitted to Med/surg accompanied by tech, via wheelchair, room 214, with chart, al5 22:04 Condition: stable 22:04 Instructed on the need for admit, 22:05 Patient left the ED. al5 Signatures: Dispatcher [employer] EDMS Regino Ramos PA PA cp Savanna Bishop RN RN ld1 Alisha Fair RN RN Laura Hoover Amanda RN RN al5
--- NOTE | 2024-09-24 18:40 | EDPHYS ---
Physician Documentation [facility] Name: Juan Nam Age: 74 yrs Sex: Male : 1950 Arrival Date: 09/24/2024 Time: 16:02 Bed 20 Private MD: ED Physician Yunior Rodriguez HPI: 09/24 16:55 This 74 yrs old Male presents to ER via Ambulatory with complaints of Abnormal Lab cp Results. 16:55 Patient is a 74-year-old male who presents to the emergency department due to abnormal cp recent blood work. Patient has a history of a chronic wound to his left foot in which he is receiving IV cefepime and and oral Doxycycline. Patient reports he had recent blood work that showed he had an elevated white blood cell count and so he was referred to the emergency department for evaluation. Patient denies fever and reports otherwise feeling well. Historical: - Allergies: 16:17 No Known Allergies; ld1 - PMHx: 16:17 Chronic pain; Hypertension; Rheumatoid Arthritis; ld1 - Immunization history:: Adult Immunizations up to date. - Infectious Disease History:: Denies. - Social history:: Smoking status: Patient denies any tobacco usage or history of. ROS: 17:00 MS/extremity: Positive for chronic wound to left foot, cp 17:00 Constitutional: history per hpi cp 17:00 All other systems are negative, cp Exam: 17:05 Constitutional: The patient appears in no acute distress, alert, awake, cp non-diaphoretic, non-toxic, well developed, well nourished, obese, 17:05 Head/Face: Normocephalic, atraumatic. cp 17:05 Eyes: Periorbital structures: appear normal, Conjunctiva: normal, no exudate, no injection, Sclera: no appreciated abnormality, Lids and lashes: appear normal, bilaterally, 17:05 ENT: External ear(s): are unremarkable, Nose: is normal, Mouth: Lips: moist, Oral mucosa: moist, Posterior pharynx: Airway: no evidence of obstruction, patent, 17:05 Neck: ROM/movement: is normal, is supple, without pain, no range of motions limitations, 17:05 Chest/axilla: Inspection: normal, 17:05 Cardiovascular: Rate: normal, Rhythm: regular, Edema: ankle edema, that is mild, JVD: is not appreciated, 17:05 Respiratory: the patient does not display signs of respiratory distress, Respirations: normal, no use of accessory muscles, no retractions, labored breathing, is not present, Breath sounds: are clear throughout, no decreased breath sounds, no stridor, no wheezing, 17:05 Abdomen/GI: Inspection: abdomen appears normal, Palpation: abdomen is soft and non-tender, in all quadrants, 17:05 Back: pain, is absent, ROM is normal, 17:05 Musculoskeletal/extremity: Extremities: noted in the left foot: mild swelling, wound noted to plantar side ball of foot with mild purulent drainage, mild erythema, Perfusion: the extremity is pink, warm, the left foot decreased sensation, 17:05 Neuro: Orientation: to person, place \T\ time. Mentation: is normal, 17:08 ECG was reviewed by the Attending Physician. Vital Signs: 16:15 BP 144 / 74; Pulse 85; Resp 18; Temp 97.1(TE); Pulse Ox 100% on R/A; Weight 111.13 kg; ld1 Height 6 ft. 1 in. ; Pain 0/10; 16:30 BP 143 / 80; Pulse 74; Resp 18; Pulse Ox 97% on R/A; db 17:00 BP 130 / 82; Pulse 79; Resp 16; Pulse Ox 99% on R/A; db 18:30 BP 134 / 81; Pulse 71; Resp 16; Pulse Ox 99% on R/A; db 19:00 BP 134 / 75; Pulse 75; Resp 17; Pulse Ox 99% on R/A; db 19:30 BP 149 / 80; Pulse 79; Resp 18; Pulse Ox 97% ; al5 22:04 BP 136 / 71; Pulse 73; Resp 18; Pulse Ox 99% ; al5 16:15 Body Mass Index 32.32 (111.13 kg, 185.42 cm) ld1 16:15 Pain Scale: Adult ld1 MDM: 16:17 Medical Screening Exam initiated cp 18:40 Data reviewed: vital signs, nurses notes, lab test result(s), EKG, radiologic studies, cp plain films, and as a result, I will admit patient. 18:40 Differential diagnosis: sepsis, osteomyelitis, abscess, cellulitis, bacteremia. cp Management of patient was discussed with the following: Hospitalist: DR Marcum will admit after discussion. I considered the following discharge prescriptions or medication management in the emergency department Medications were administered in the Emergency Department. See MAR. Independent interpretation of the following test(s) in the Emergency Department EKG: See my EKG interpretation above. Care significantly affected by the following chronic conditions: RA. Counseling: I had a detailed discussion with the patient and/or guardian regarding the historical points, exam findings, and any diagnostic results supporting the discharge/admit diagnosis, lab results, radiology results, the need for further work-up and treatment in the hospital. 09/24 16:50 Order name: Blood Culture Adult (2) cp 09/24 16:50 Order name: CBC with Diff cp 09/24 18:09 Interpretation: Normal except: WBC 15.60; RBC 4.27; HGB 12.9; HCT 37.6; RDW 16.1; cp EOSINOPHIL % 16.7; NEUT A 8.4; EOSA 2.6. 09/24 16:50 Order name: CMP; Complete Time: 18:08 cp 09/24 18:09 Interpretation: GLUC 114; BUN 46; CRE 1.59; GFR 46; AST < 10; ALT < 14; ALB 3.2; A/G cp 0.9. 09/24 16:50 Order name: Lactate w/ 2H reflex if indic.; Complete Time: 18:08 cp 09/24 18:40 Interpretation: Reviewed. cp 09/24 16:50 Order name: Protime (+inr); Complete Time: 18:08 cp 09/24 16:50 Order name: Ptt, Activated; Complete Time: 18:08 cp 09/24 16:50 Order name: Urinalysis w/ reflexes cp 09/24 16:50 Order name: CRP; Complete Time: 18:08 cp 09/24 18:09 Interpretation: Abnormal: C-REACTIVE PROT 17.20. cp 09/24 17:20 Order name: Manual Differential EDMS 09/24 18:21 Order name: Wound Culture cp 09/24 19:50 Order name: CBC with Automated Diff EDMS 09/24 19:50 Order name: CBC with Automated Diff EDMS 09/24 19:50 Order name: Comprehensive Metabolic Panel EDMS 09/24 19:50 Order name: Comprehensive Metabolic Panel EDMS 09/24 20:13 Order name: Vancomycin Level Trough EDMS 09/24 16:50 Order name: XRAY Foot LEFT 3 View; Complete Time: 18:08 cp 09/24 19:50 Order name: CONS Physician Consult EDNC 09/24 16:50 Order name: Accucheck; Complete Time: 17:17 09/24 16:50 Order name: Cardiac monitoring; Complete Time: 17:17 cp 09/24 16:50 Order name: EKG - Nurse/Tech; Complete Time: 17:17 cp 09/24 16:50 Order name: IV Saline Lock - Large Bore; Complete Time: 17:17 cp 09/24 16:50 Order name: Labs collected and sent; Complete Time: 17:18 cp 09/24 16:50 Order name: O2 Per Protocol; Complete Time: 17:18 09/24 16:50 Order name: O2 Sat Monitoring; Complete Time: 17:18 09/24 16:50 Order name: Vital Signs; Complete Time: 17:18 cp EC:08 Rate is 76 beats/min. Rhythm is regular. WI interval is normal. QRS interval is cp prolonged at 108 msec. QT interval is normal. T waves are Inverted in lead aVR. Interpreted by me. Reviewed by me. Administered Medications: 18:52 Drug: vancoMYCIN IVPB 1.5 grams IVPB at calculated rate once Route: IVPB; Rate: db calculated rate; Site: right upper arm; 21:20 Follow up: Response: No adverse reaction; IV Status: Completed infusion; IV Intake: al5 500ml Disposition Summary: 09/24/24 18:39 Hospitalization Ordered Notes: Hospitalization Status: Inpatient Admission cp Provider: Jakob Marcum [facility] Condition: Stable cp Problem: an ongoing problem cp Symptoms: have improved cp Bed/Room Type: Standard cp Room Assignment: 214(09/24/24 20:43) cg Diagnosis - Unspecified open wound, left foot, initial encounter cp Forms: - Medication Reconciliation Form cp - SBAR form cp - Leadership Thank You Letter cp Signatures: Dispatcher [employer] EDNC Rgeino Ramos PA PA cp Garcia, Cindy, RN RN cg Savanna Bishop RN RN ld1 Alisha Fair RN RN db Grace Holt RN al5 Corrections: (The following items were deleted from the chart) 16:50 16:50 Foot Left 3 View+RAD.RAD.BRZ ordered. EDMS EDMS 16:51 16:51 BLOOD CULTURE*+BA.LAB.BRZ ordered. EDMS EDMS 16:51 16:51 CBC+H.LAB.BRZ ordered. EDMS EDMS 16:51 16:51 COMPREHENSIVE METABOLIC PANEL+C.LAB.BRZ ordered. EDMS EDMS 16:51 16:51 LACTATE+C.LAB.BRZ ordered. EDMS EDMS 16:51 16:51 PROTIME (+INR)+COAG.LAB.BRZ ordered. EDMS EDMS 16:51 16:51 PTT, ACTIVATED+COAG.LAB.BRZ ordered. EDMS EDMS 16:51 16:51 Urinalysis+U.LAB.BRZ ordered. EDMS EDMS 16:51 16:51 C-REACTIVE PROTEIN+C.LAB.BRZ ordered. EDMS EDMS 20:43 18:39 cp cg 09/25 21:32 21:31 MS/extremity: Positive for chronic wound to left foot, cp cp
[2024-09-24] MEDS ORDERED: VANCOMYCIN 1 GM/VIAL ONE (18:53)
[2024-09-24] MEDS ORDERED: VANCOMYCIN 500 MG/VIAL ONE (18:53)
[2024-09-24] MEDS ORDERED: NA CHLORIDE 0.9% 500 ML ONE (18:54)
[2024-09-24 19:14] LABS: Specific Gravity 1.016 (1.005-1.030); Sqamous Epithelial None Seen /HPF (None Seen); Urine Bacteria None Seen /HPF (<20); Urine Bilirubin NEGATIVE (Negative); Urine Blood Negative (Negative); Urine Clarity Turbid (Clear); Urine Color Light-Yellow (Yellow); Urine Crystals Unidentified Few /HPF (None Seen); Urine Culture Reflex Order NOT NEEDED; Urine Glucose NEGATIVE (Negative); Urine Ketones NEGATIVE (Negative); Urine Microscopic Reflex YN ORDER UMIC; Urine Mucus Slight /HPF (None Seen); Urine Nitrite NEGATIVE (Negative); Urine Protein NEGATIVE (Negative); Urine RBC <5 /HPF (None Seen); Urine Urobilinogen Normal (Normal); Urine WBC <5 /HPF (<5); Urine pH 5.5 (5.0-7.0)
[2024-09-24] MEDS ORDERED: ACETAMINOPHEN 325 MG TABLET PO PRN (19:43)
[2024-09-24] MEDS ORDERED: ONDANSETRON 4 MG/2 ML VIAL IV PRN (19:43)
--- NOTE | 2024-09-24 19:43 | P.HP ---
Certification for Inpatient Patient admitted to: Inpatient With expected LOS: >2 Midnights Practitioner: I am a practitioner with admitting privileges, knowledge of patient current condition, hospital course, and medical plan of care. Services: Services provided to patient in accordance with Admission requirements found in Title 42 Section 412.3 of the Code of Federal Regulations Patient History Date of Service: 09/24/24 Reason for admission: Left foot ulcer History of Present Illness: 74-year-old male with a past medical history significant for rheumatoid ar thritis, chronic pain syndrome, hypertension, obesity, GERD, borderline diabetes who presents with complaint of wound to the left foot . Patient reported he noticed a wound under his left foot which has become progressively worse. Patient has been followed by Dr. Sosa and had a PICC line placed and was on IV antibiotic and wound care. Patient continues to have some pain and discharge and was brought to ER. Denies any fever or chills no chest pain or shortness of breath Denies any nausea vomiting or diarrhea Patient was assessed in the ER and is admitted for further management of chronic nonhealing ulcer Allergies No Known Allergies Allergy (Verified 09/24/24 19:59) Home medications list reviewed: Yes Home Medications: Esomeprazole Magnesium [Nexium] 40 mg PO DAILY 01/19/15 Triamterene/Hctz [Maxzide 75*] 1 tab PO DAILY 01/19/15 Losartan Potassium [Cozaar*] 50 mg PO DAILY 05/31/19 Nifedipine Xl [Procardia XL*] 90 mg PO DAILY 05/31/19 predniSONE [Prednisone*] 10 mg PO DAILY 05/31/19 Aspirin [Aspirin EC 81 MG] 81 mg PO DAILY 12/31/19 Pegloticase [Krystexxa] 8 mg IV SEECOM 08/05/24 Sarilumab [Kevzara] 200 mg SQ SEECOM 08/05/24 - Past Medical/Surgical History Diabetic: No Past Medical History: Reviewed- Non-Contributory -: Rheumatoid arthritis -: GERD -: Obesity -: HTN -: spinal sx Past Surgical History: Reviewed- Non-Contributory -: Laminectomy -: Left carpal tunnel sx - Family History Father -: Heart disease, Stroke Mother -: GI disease - Social History Smoking Status: Never smoker Alcohol use: Yes CD- Drugs: No Caffeine use: Yes Review of Systems 10-point ROS is otherwise unremarkable Other: Constitutional: Reports: generalized weakness. Skin: Denies: rash. Allergy/Immun: Denies: rhinorrhea, sneezing. Eyes: Denies: visual loss/blurred. ENT: Denies: earache, nasal congestion. Respiratory: Denies: non productive cough. Cardiovascular: Denies: chest pain, palpitations. GI: Denies: diarrhea, nausea. : Denies: dysuria. Musculoskeletal: Reports: arthritis. Denies: extremity pain. Heme: Denies: bleeding. Endocrine: Denies: polydipsia. Neuro: Reports: dizziness, gait problem, lightheaded, spinning sensation. Psych: Reports: anxiety. All systems rev & neg: except as noted Physical Examination - Vital Signs Temperature: 97.1 F Blood Pressure: 144/74 Pulse: 85 Respirations: 18 Pulse Ox (%): 94 - Physical Exam General: Alert, In no apparent distress, Oriented x3, Obese HEENT: Atraumatic, Normocephalic Neck: Supple Respiratory: Clear to auscultation bilaterally, Normal air movement Cardiovascular: Regular rate/rhythm, Normal S1 S2 Capillary refill: <2 Seconds Gastrointestinal: Soft and benign, W/out hepatosplenomegaly Musculoskeletal: No clubbing, Erythema, Tenderness Integumentary: Tenderness/swelling, Erythema Neurological: Normal gait, Normal speech, Normal strength at 5/5 x4 extr, Cranial nerves 3-12 intact, Normal reflexes 2+, Normal affect Lymphatics: No axilla or inguinal lymphadenopathy - Studies Laboratory Data (last 24 hrs) 09/24/24 09/24/24 09/24/24 17:04 17:04 17:04 WBC 15.60 H Hgb 12.9 L Hct 37.6 L Plt Count 231 PT 13.0 INR 1.15 APTT 30.6 Sodium 138 Potassium 3.7 BUN 46 H Creatinine 1.59 H Glucose 114 H Total Bilirubin 0.3 AST < 10 L ALT < 14 L Alkaline Phosphatase 101 Assessment and Plan - Plan Nonhealing ulcer left foot History of Left foot osteomyelitis. Leukocytosis. Foot Xray findings noted Will obtain blood cultures Continue antibiotics Wound care consult Surgery consulted Awaiting further recommendations Hypertension Antihypertensives titrated Continue home medications and titrate as needed Hyperlipidemia Continue statin CKD stage II Monitor renal parameters Electrolytes monitor and replace accordingly Diabetes borderline Insulin sliding scale Accu-Chek before every meal and at bedtime Chronic pain syndrome. --Continue current pain medication regimen GERD\rheumatoid arthritis --Continue home medications GI/DVT prophylaxis Advanced directive full code Discharge Plan: Home Plan to discharge in: 48 Hours - Advance Directives Does patient have a Living Will: No Does patient have a Durable POA for Healthcare: No - Code Status/Comfort Care Code Status: Full Code
[2024-09-24] MEDS: VANCOMYCIN 1 GM in NA CHLORIDE 0.9% 250 ML IVPB SCH (20:00)
[2024-09-24 21:59] LABS: Blood Morphology Comment NOT SEEN (NOT SEEN); Differential Total Cells Count 100; Eosinophils 12 % (0-3); Lymphocytes 24 % (15-42); Monocytes 7 % (0-10); Platelet Estimate ADEQ; Segmented Neutrophils 54 % (40-80)
[2024-09-24 22:38] VITALS: O2SAT 99
[2024-09-24] MEDS ORDERED: D10W 125 ML IV PRN (23:01)
[2024-09-24] MEDS ORDERED: GLUCAGON 1 MG/VIAL IM PRN (23:01)
[2024-09-25] MEDS: PIPER TAZO 3.375 GM in NA CHLORIDE 0.9% 100 ML IV SCH (00:24)
[2024-09-25 06:54] LABS: Absolute Basophils 0.1 K/uL (0-0.5); Absolute Eosinophils 5.7 K/uL (0-0.5); Absolute Lymphocytes (CBC) 2.8 K/uL (0.7-4.9); Absolute Monocytes 1.1 K/uL (0.1-1.3); Absolute Neutrophil 5.9 K/uL (1.8-8.0); Basophils % 0.8 % (0-1.3); Eosinophils % 36.6 % (0-4.4); Hemoglobin 12.3 g/dL (13.6-17.9); Lymphocytes % 17.9 % (15.3-44.8); MCH 30.3 pg (27.0-35.0); MCHC 34.1 g/dL (32.0-36.0); MPV 9.1 fL (7.6-11.3); Monocytes % 6.8 % (3.3-12.3); Neutrophils % 37.9 % (41.7-73.7); Nucleated Red Blood Cells % 0.1 % (0-0); Platelets 199 thou/uL (152-406); RBC Red Blood Cell Count 4.04 M/uL (4.33-5.43); Red Cell Distribution Width 15.8 % (12.1-15.2)
[2024-09-25 06:59] LABS: Albumin 2.7 g/dL (3.4-5.0); Albumin/Globulin Ratio 0.8 (1.1-1.8); Alkaline Phosphatase 82 U/L (45-117); Anion Gap 12.4 mEq/L (5.0-15.0); BUN Blood Urea Nitrogen 40 mg/dL (7-18); Bicarbonate 22 mEq/L (21-32); Bilirubin Total 0.5 mg/dL (0.2-1.0); Globulin 3.2 g/dL (2.3-3.5); Glomerular Filtration Rate 56 ml/min (=/>90); Glucose Level 115 mg/dL (74-106); Potassium 3.4 mEq/L (3.5-5.1); Protein, Total 5.9 g/dL (6.4-8.2); Sodium Level 141 mEq/L (136-145)
[2024-09-25 07:03] LABS: ALT/SGPT < 14 U/L (16-61); AST/SGOT < 10 U/L (15-37)
[2024-09-25] MEDS: INSULIN REGULAR (HUMAN) 100 UNIT/ML SQ SCH (07:30)
[2024-09-25] MEDS: POTASSIUM CL SA 10 MEQ TAB PO ONE (08:11)
[2024-09-25] MEDS: ENOXAPARIN 40 MG/0.4 ML SQ SCH (08:11)
[2024-09-25 08:27] LABS: Differential Total Cells Count 100; Eosinophils 38 % (0-3); Lymphocytes 14 % (15-42); Monocytes 7 % (0-10); Segmented Neutrophils 41 % (40-80)
[2024-09-25 08:28] LABS: Blood Morphology Comment NOT SEEN (NOT SEEN); Platelet Estimate ADEQ
[2024-09-25] MEDS ORDERED: VANCOMYCIN 2 GM in NA CHLORIDE 0.9% 500 ML IVPB SCH ×2 (12:00→17:00)
[2024-09-25] MEDS: METHYLPREDNISOLONE 125 MG INJ IV ONE (12:29)
[2024-09-25] MEDS: levoFLOXacin 500 MG TAB PO ONE (14:18)
--- NOTE | 2024-09-25 23:14 | CON ---
Date of Consultation: 09/25/2024 History Of Present Illness: This is the case of a 74-year-old patient known by us due to history of a left foot ulcer, admitted to the hospital with the leukocytosis. He is currently receiving IV anti biotics with a PICC line. Apparently, the patient has leukocytosis and was admitted for observation. [facility] His foot is the best it has been. The area is clean and I saw him today and still it is the same. No fluctuance. No crepitus. It al so almost completely closed, to the point that it is about 99% closed. Allergies: NONE. Medications: Nexium, Cozaar, Procardia, prednisone, aspirin, Kevzara. Past Medical History: Rheumatoid arthritis, obesity, hypertension. Past Surgical History: Laminectomy, carpal tunnel. Social History: He does not smoke. He does not drink alcohol. Review of Systems: No shortness of breath. No fever. No nausea. The wound is about 95% to 98% closed. Physical Examination: Vital Signs: Reviewed. General: Patient is awake and alert. Pupils are equal and reactive. Anicteric. Chest: Clear. Abdomen: Soft and depressible. Extremities: Good capillary refill. Left foot wound looks clean, 98% closed. Good epithelializatio n. No fluctuance. No crepitus. No necrotic tissue. Laboratory Data: WBC count is 15.6. Plan: From the surgical standpoint, he is going to go back to the treatment he had before or if any, we can do just Bactroban while he is in the hospital and he is cleared from the surgical standpoint to be discharged home whenever the medical doctors believe is proper. FLORI/ISIAH Voice ID: [id number] Report ID: [id number]
[2024-09-26 00:21] VITALS: BMI 32.3
[2024-09-26 07:17] LABS: Absolute Basophils 0.1 K/uL (0-0.5); Absolute Lymphocytes (CBC) 2.6 K/uL (0.7-4.9); Absolute Monocytes 0.6 K/uL (0.1-1.3); Absolute Neutrophil 10.8 K/uL (1.8-8.0); Basophils % 0.7 % (0-1.3); Eosinophils % 0.3 % (0-4.4); Hematocrit 40.9 % (39.6-49.0); Hemoglobin 13.7 g/dL (13.6-17.9); Lymphocytes % 18.4 % (15.3-44.8); MCH 29.8 pg (27.0-35.0); MCHC 33.6 g/dL (32.0-36.0); MCV 88.5 fL (80-100); MPV 8.7 fL (7.6-11.3); Monocytes % 4.2 % (3.3-12.3); Neutrophils % 76.4 % (41.7-73.7); Nucleated Red Blood Cells % 0.1 % (0-0); Platelets 242 thou/uL (152-406); RBC Red Blood Cell Count 4.62 M/uL (4.33-5.43); Red Cell Distribution Width 15.7 % (12.1-15.2)
[2024-09-26 07:35] LABS: ALT/SGPT 15 U/L (16-61); Albumin 3.1 g/dL (3.4-5.0); Albumin/Globulin Ratio 0.8 (1.1-1.8); Alkaline Phosphatase 91 U/L (45-117); BUN Blood Urea Nitrogen 32 mg/dL (7-18); Bicarbonate 22 mEq/L (21-32); Bilirubin Total 0.4 mg/dL (0.2-1.0); Globulin 3.9 g/dL (2.3-3.5); Glomerular Filtration Rate 61 ml/min (=/>90); Glucose Level 141 mg/dL (74-106); Magnesium 1.9 mg/dL (1.6-2.4); Sodium Level 140 mEq/L (136-145)
[2024-09-26 07:44] LABS: AST/SGOT < 10 U/L (15-37)
[2024-09-26] MEDS: levoFLOXacin 750 MG TAB PO SCH (08:47)
[2024-09-26 08:50] VITALS: TEMP 98.1
[2024-09-26 12:23] VITALS: BP 151/80
[2024-09-26] MEDS ORDERED: LOSARTAN POTASSIUM 50 MG TABLET PO ONE (14:37)
--- NOTE | 2024-09-29 12:54 | EKG ---
Test Date: 2024-09-24 Test Time: 16:59:19 Credit Collections Manager: AM MEASUREMENT RESULTS: Intervals: Rate: 76 DE: 182 QRSD: 108 QT: 392 QTc: 441 Sunman: P: 16 DE: 182 QRS: -42 T: 39 INTERPRETIVE STATEMENTS: Sinus rhythm with occasional premature ventricular complexes Left axis deviation Septal infarct, age undetermined Abnormal ECG Compared to ECG 08/04/2024 10:15:13 Ventricular premature complex(es) now present Atrial premature complex(es) no longer present First degree AV block no longer present Prolonged QT interval no longer present Myocardial infarct finding still present Electronically Signed On 09-29-24 12:43:02 CDT by Andi Seay
--- NOTE | 2024-10-01 03:10 | P.PN ---
Subjective Date of Service: 09/25/24 Patient's chart evaluated. Patient was admitted for leukocytosis. However patient had a eosinophilia. Patient's wound looks like it is well-healed according to general surgery no aggressive intervention for the wound care. However it appears patient is having a reaction to maybe his IV antibiotics. Will go ahead and discontinue his IV antibiotics and start him on oral antibiotics. He was supposed to get 3 more days of his IV antibiotics and I will go ahead and put him on Levaquin which was sensitive on patient's cultures results. Will repeat eosinophil count tomorrow and if labs are stable patient should be able to discharge. Review of Systems 10-point ROS is otherwise unremarkable Physical Examination - Vital Signs Temperature: 98.1 F Blood Pressure: 151/80 Pulse: 80 Respirations: 16 Pulse Ox (%): 97 - Physical Exam General: Alert, In no apparent distress, Oriented x3 Respiratory: Clear to auscultation bilaterally, Normal air movement Cardiovascular: Regular rate/rhythm, Normal S1 S2, No murmurs Gastrointestinal: Normal bowel sounds, Soft and benign, Non-distended, No tenderness Musculoskeletal: No clubbing, No swelling, No tenderness Integumentary: Diabetic ulcer Neurological: Sensation intact, Cranial nerves 3-12 intact - Studies Medications List Reviewed: Yes Assessment & Plan - Problems (Diagnosis) (1) Leukocytosis Onset Date: 01/20/15 Status: Acute (2) Hypertension Status: Acute (3) Obesity (BMI 30-39.9) Status: Acute (4) Rheumatoid arthritis Status: Acute (5) Diabetic foot Status: Acute - Plan Plan: 1. Patient with leukocytosis; this is most likely related to eosinophilia. Patient possibly having a reaction to intravenous antibiotics. Plan is to start patient on steroids and repeat eosinophil count. Will go ahead and start oral Levaquin. Will continue it for 1 week and anticipate discharge with outpatient follow-up. 2. Diabetic foot wound; patient had wound cultures which show Streptococcus which was pansensitive. 3. History of rheumatoid arthritis on immunosuppressant; continue with wound care 4. GI DVT prophylaxis Discharge Plan: Home Plan to discharge in: Greater than 2 days - Advance Directives Does patient have a Living Will: No Does patient have a Durable POA for Healthcare: No - Code Status/Comfort Care Code Status: Full Code Critical Care: No Time Spent Managing PTS Care (In Minutes): 35
--- NOTE | 2024-10-01 03:12 | P.DS ---
Discharge Date: 09/26/24 Disposition: MA HOME/HOME HEALTH CARE Discharge Condition: GOOD Reason for Admission: Left foot ulcer - Problems (1) Leukocytosis Onset Date: 01/20/15 Status: Acute (2) Hypertension Status: Acute (3) Obesity (BMI 30-39.9) Status: Acute (4) Rheumatoid arthritis Status: Acute (5) Diabetic foot Status: Acute Brief History of Present Illness: Patient is a 74-year-old male with a past medical history significant for rheumatoid arthritis, chronic pain syndrome, hypertension, obesity, GERD, borderline diabetes who presents with complaint of wound to the left foot . Patient reported he noticed a wound under his left foot which has become progressively worse. Patient has been followed by Dr. Sosa and had a PICC line placed and was on IV antibiotic and wound care. Patient continues to have some pain and discharge and was brought to ER. Denies any fever or chills no chest pain or shortness of breath Denies any nausea vomiting or diarrhea Patient was assessed in the ER and is admitted for further management of chronic nonhealing ulcer Hospital Course: Patient is clinically doing well. Patient denies any new complaints. Patient's leukocytosis related to eosinophilia most likely related to reaction to antibiotic. Will go ahead and discontinue IV antibiotics and start oral Levaquin. Patient is stable for discharge with outpatient follow-up. Vital Signs/Physical Exam: Temp Pulse Resp BP Pulse Ox 98.1 F 80 16 151/80 H 97 10/01/24 03:10 10/01/24 03:10 10/01/24 03:10 10/01/24 03:10 10/01/24 03:10 General: Alert, In no apparent distress, Oriented x3 Laboratory Data at Discharge: WBC 14.10 thou/uL (4.3-10.9) H 09/26/24 07:07 Hgb 13.7 g/dL (13.6-17.9) D 09/26/24 07:07 Hct 40.9 % (39.6-49.0) 09/26/24 07:07 Plt Count 242 thou/uL (152-406) 09/26/24 07:07 PT 13.0 SECONDS (10-13.0) 09/24/24 17:04 INR 1.15 09/24/24 17:04 APTT 30.6 SECONDS (27.2-37.4) 09/24/24 17:04 Sodium 140 mEq/L (136-145) 09/26/24 07:07 Potassium 4.0 mEq/L (3.5-5.1) 09/26/24 07:07 BUN 32 mg/dL (7-18) H 09/26/24 07:07 Creatinine 1.26 mg/dL (0.70-1.30) 09/26/24 07:07 Glucose 141 mg/dL (74-106) H 09/26/24 07:07 Magnesium 1.9 mg/dL (1.6-2.4) 09/26/24 07:07 Total Bilirubin 0.4 mg/dL (0.2-1.0) 09/26/24 07:07 AST < 10 U/L (15-37) L 09/26/24 07:07 ALT 15 U/L (16-61) L 09/26/24 07:07 Alkaline Phosphatase 91 U/L (45-117) 09/26/24 07:07 Home Medications: Esomeprazole Magnesium [Nexium] 40 mg PO DAILY 01/19/15 Triamterene/Hctz [Maxzide 75*] 1 tab PO DAILY 01/19/15 Losartan Potassium [Cozaar*] 50 mg PO DAILY 05/31/19 Nifedipine Xl [Procardia XL*] 90 mg PO DAILY 05/31/19 predniSONE [Prednisone*] 10 mg PO DAILY 05/31/19 Aspirin [Aspirin EC 81 MG] 81 mg PO DAILY 12/31/19 Pegloticase [Krystexxa] 8 mg IV SEECOM 08/05/24 Sarilumab [Kevzara] 200 mg SQ SEECOM 08/05/24 levoFLOXacin [Levaquin*] 750 mg PO DAILY #7 tab 09/26/24 New Medications: levoFLOXacin [Levaquin*] 750 mg PO DAILY #7 tab Physician Discharge Instructions: -DC IV and DC home -Follow-up with PCP in 1 to 2 weeks -Follow-up with General Surgery in 1 to 2 weeks -Please call Dr. Thomas at [phone] if any questions regarding hospital stay -Please call nursing station at [phone] if any nursing or medication questions -Return to the emergency room if symptoms worsen Diet: AHA Activity: Fall precautions Followup: Heidy Harmon DO, DO [Primary Care Provider] - Time spent managing pt's care (in minutes): 35
== END 2024-09-26 16:07 | disposition home health service (06) | DRG 639 ==
LOC: ER 16:02 → ERHOLD 19:43 → 2ND 21:39
PROVIDERS: ADMIT Family Medicine; ATTEND Hospitalist
DX: E11.621 Type 2 diabetes mellitus with foot ulcer (principal); L97.529 Non-pressure chronic ulcer of other part of left foot with unspecified severity; M06.9 Rheumatoid arthritis, unspecified; G89.4 Chronic pain syndrome; E78.5 Hyperlipidemia, unspecified; E66.9 Obesity, unspecified; D72.10 Eosinophilia, unspecified; T36.95XA Adverse effect of unspecified systemic antibiotic, initial encounter; I12.9 Hypertensive chronic kidney disease with stage 1 through stage 4 chronic kidney disease, or unspecified chronic kidney disease; N18.2 Chronic kidney disease, stage 2 (mild); E11.22 Type 2 diabetes mellitus with diabetic chronic kidney disease; K21.9 Gastro-esophageal reflux disease without esophagitis; Z68.32 Body mass index [BMI] 32.0-32.9, adult; Z79.82 Long term (current) use of aspirin; Z79.52 Long term (current) use of systemic steroids; Z79.899 Other long term (current) drug therapy
CPT/HCPCS: 36415; 80053; 81001; 82947; 83605; 83735; 84132; 85025; 85610; 85730; 86140; 87040; 87070; 87205; 93005; 96365; 96366; 99213; 99285; J1650; J1815; J2543; J2919; J3370; J7040